=== PATIENT | female | born 1940 | race Caucasian/White ===

== ENCOUNTER 2017-01-04 15:22 | Observation (INO) ==
--- NOTE | 2017-01-04 15:54 | Emergency Department Note ---
Disposition Clinical Impression: CHF (congestive heart failure) Qualifiers: Congestive heart failure type: unspecified congestive heart failure type Congestive heart failure chronicity: acute Qualified Code(s): I50.9 - Heart failure, unspecified Disposition: Admitted As Inpatient Condition: Fair Referrals: Jakob Wilkes MD [Primary Care Provider] - Forms: ED Satisfaction Letter Time of Disposition: 17:26 SOB HPI - General Chief Complaint: ED Shortness of Breath/Dyspnea Stated Complaint: SOB Time Seen by Provider: 01/04/17 15:49 Source: patient, family Mode of arrival: wheelchair Limitations: no limitations Nursing Notes Reviewed: Yes Vital Signs Reviewed: Yes - History of Present Illness 76-year-old with a history of CHF comes in with increasing shortness of breath. Patient was seen at the urgent care with her concern was that she had CHF so they sent her here for evaluation. Pt Subjective Complaint: shortness of breath Onset (ago): Just DIETARY TECH Context: recent illness Severity: moderate Consistency/Duration: constant Improves with: nothing Worsens with: lying flat, exertion Known history of: congestive heart failure Associated symptoms: Reports: chest pain Treatment prior to arrival: oxygen (And is on oxygen at home) Cough present: Yes Cough Description: Involuntary Cough Frequency: Intermittent - Related Data Home Medications Medication Instructions Recorded Confirmed Allopurinol [Zyloprim] 100 mg PO DAILY 03/10/15 03/10/15 Carvedilol [Coreg] 12.5 mg PO BID 03/10/15 03/10/15 Cinacalcet HCl [Sensipar] 30 mg PO DAILY 03/10/15 03/10/15 Coumadin 4 mg PO DAILY 03/10/15 03/17/15 Cyanocobalamin (Vitamin B-12) 1,000 mcg PO DAILY 03/10/15 03/10/15 [Vitamin B-12] Docusate [Colace] 100 mg PO DAILY 03/10/15 03/17/15 Furosemide [Lasix] 40 mg PO DAILY 03/10/15 03/17/15 Gabapentin [Neurontin] 100 mg PO TID 03/10/15 03/10/15 HYDROcodone/Acet 5/325 mg [[place]line 2 tab PO TID PRN 03/10/15 03/10/15 5-325 mg] Levothyroxine Sodium [Synthroid] 125 mcg PO DAILY 03/10/15 03/17/15 Losartan Potassium [Cozaar] 50 mg PO DAILY 03/10/15 03/17/15 Novolog Mix 70-30 Flexpen Syrn 35 - 45 units SQ DAILY 03/10/15 03/17/15 Pravastatin Sodium [Pravachol] 40 mg PO DAILY 03/10/15 03/17/15 Inulin/Chromium Picolinate [Fiber 1 tab PO DAILY 03/17/15 03/17/15 Gummies] Allergies Allergy/AdvReac Type Severity Reaction Status Date / Time azithromycin [From Zithromax] Allergy Hives Verified 01/04/17 15:42 Penicillins Allergy Hives Verified 01/04/17 15:42 All systems ED: reviewed and negative except as stated. Constitutional: Denies: fever, chills, weakness, weight change Eyes: Denies: eye pain, eye discharge, vision change ENT ED: Denies: ear pain, throat pain, dental pain, hearing loss, epistaxis, congestion, dysphagia Cardiovascular: Reports: dyspnea on exertion. Denies: chest pain, palpitations , edema, syncope Respiratory: Reports: dyspnea. Denies: cough, wheezes, hemoptysis, stridor Gastrointestinal: Denies: abdominal pain, nausea, vomiting, diarrhea, constipation, hematemesis, melena, hematochezia Genitourinary: Denies: dysuria, frequency, hematuria, discharge Musculoskeletal: Denies: back pain, neck pain, arthralgia, myalgia Integumentary: Denies: rash, abrasion, lesions Neurological: Denies: headache, weakness, numbness, paresthesias, confusion, abnormal gait, vertigo Psychiatric: Denies: anxiety, depression, suicidal thoughts, homicidal thoughts , auditory hallucinations, visual hallucinations Endocrine: Denies: fatigue Hematological/Lymphatic: Denies: easy bleeding, easy bruising Allergic/Immunologic: Denies: facial swelling, urticaria Past Medical History - Past Medical History Medical history: Reports: atrial fibrillation, COPD, coronary artery disease Surgical history: Reports: non-contributory Psychiatric history: Reports: anxiety, depression PELLET PRESS OPERATOR history: Reports: no PELLET PRESS OPERATOR history - Social History Smoking Status: Never smoker Smokeless Tobacco Status: No Alcohol use: Reports: none Drug use: Reports: none Physical Exam - General Limitations: no limitations General appearance: alert, in no apparent distress - Head Head exam: atraumatic, normocephalic, normal inspection - Eye Eye exam: Present: normal appearance, PERRL, EOMI - ENT ENT exam: normal exam, normal oropharynx, mucous membranes moist - Neck Neck exam: Present: normal inspection, full ROM, trachea midline - Chest Chest inspection: Present: normal inspection, symmetric chest wall rise - Respiratory Respiratory exam: Present: normal lung sounds bilaterally - Cardiovascular Cardiovascular exam: Present: regular rate, normal rhythm, normal heart sounds - Abdominal Exam Abdominal exam: Present: soft, Non-Tender. Absent: tenderness, distention, guarding, rebound, rigidity - Extremities Exam Extremities exam: Present: normal inspection, full ROM. Absent: tenderness, pedal edema - Expanded Lower Extremity Exam Neurovascular/Tendon exam: Absent: motor deficit, sensory deficit, tendon deficit Gait: not tested/not observed - Back Exam Back exam: Present: normal inspection, full ROM. Absent: tenderness - Neurological Exam Neurological exam: Present: alert, oriented X3 - Psychiatric Psychiatric exam: Present: normal affect, normal mood - Skin Skin exam: Present: warm, dry, intact, normal color Course - Reevaluation(s) Reevaluation #1: 76-year-old female with a history of CHF comes in with increasing shortness of breath. Patient states exertional dyspnea has gotten progressively worse. Workup here shows some congestion on chest x-ray or exam does show some rales in the bases. We will admit for further evaluation and treatment. Time: 17:28 - Consultations Consultation #1: Discussed with , admit. Time: 17:32 Vital Signs Temperature 98.8 F 01/04/17 15:42 Pulse Rate 86 01/04/17 15:42 Respiratory Rate 22 01/04/17 15:42 Blood Pressure 167/86 01/04/17 15:42 O2 Sat by Pulse Oximetry 89 01/04/17 15:42 Temperature 98.8 F 01/04/17 15:42 Pulse Rate 80 01/04/17 16:47 Respiratory Rate 18 01/04/17 16:47 Blood Pressure 146/106 01/04/17 16:47 O2 Sat by Pulse Oximetry 94 01/04/17 16:47 Oxygen Delivery Oxygen Delivery Nasal Cannula Shortness of Breath/Dyspnea - Lab Data Result diagrams: 01/04/17 16:02 01/04/17 16:02 Lab Results 01/04/17 01/04/17 01/04/17 Range/Units 16:02 16:02 16:02 WBC 5.6 (4.3-11.1) K/mcL RBC 3.63 L (3.82-4.97) M/mcL Hgb 10.7 L (11.5-15.4) g/dL Hct 33.0 L (35.3-44.9) % MCV 90.9 (83.0-100.0) fL MCH 29.5 (28.0-33.3) pg MCHC 32.4 (31.6-35.5) g/dL RDW 15.1 H (11.5-14.5) % Plt Count 113 L (140-400) K/mcL MPV 8.8 L (9.4-12.4) fL Immature Gran % 0.7 (0-4) % Seg Neutrophils % 70.8 % Lymphocytes % 19.9 % Monocytes % 6.6 % Eosinophils % 1.6 % Basophils % 0.4 % Neutrophils # 3.9 (1.6-8.9) K/mcL Lymphocytes # 1.1 (0.6-4.6) K/mcL Monocytes # 0.4 (0.0-1.3) K/mcL Eosinophils # 0.1 (0.0-0.6) K/mcL Basophils # 0.0 (0.0-0.2) K/mcL Immature Plt Fraction 1.5 (1.1-6.1) % PT 21.0 H (9.4-12.1) Seconds INR 1.9 APTT 38.0 H (26.0-36.0) Seconds Sodium 141 (136-145) mEq/L Potassium 4.1 (3.5-4.5) mEq/L Chloride 101 (98-109) mEq/L Carbon Dioxide 29 (19-29) mEq/L BUN 16 (7-20) mg/dL Creatinine 0.99 (0.57-1.11) mg/dL Est GFR ( Amer) > 60 (> 60) Est GFR (Non-Af Amer) 55 L (> 60) BUN/Creatinine Ratio 16 (6-26) Glucose 230 H (70-99) mg/dL Calculated Osmolality 300 (280-300) Lactic Acid (0.5-2.2) mmol/L Calcium 10.2 (8.6-10.8) mg/dL Troponin I (0-0.03) ng/mL B-Natriuretic Peptide (0-100) pg/mL 01/04/17 01/04/17 01/04/17 Range/Units 16:02 16:02 16:02 WBC (4.3-11.1) K/mcL RBC (3.82-4.97) M/mcL Hgb (11.5-15.4) g/dL Hct (35.3-44.9) % MCV (83.0-100.0) fL MCH (28.0-33.3) pg MCHC (31.6-35.5) g/dL RDW (11.5-14.5) % Plt Count (140-400) K/mcL MPV (9.4-12.4) fL Immature Gran % (0-4) % Seg Neutrophils % % Lymphocytes % % Monocytes % % Eosinophils % % Basophils % % Neutrophils # (1.6-8.9) K/mcL Lymphocytes # (0.6-4.6) K/mcL Monocytes # (0.0-1.3) K/mcL Eosinophils # (0.0-0.6) K/mcL Basophils # (0.0-0.2) K/mcL Immature Plt Fraction (1.1-6.1) % PT (9.4-12.1) Seconds INR APTT (26.0-36.0) Seconds Sodium (136-145) mEq/L Potassium (3.5-4.5) mEq/L Chloride (98-109) mEq/L Carbon Dioxide (19-29) mEq/L BUN (7-20) mg/dL Creatinine (0.57-1.11) mg/dL Est GFR ( Amer) (> 60) Est GFR (Non-Af Amer) (> 60) BUN/Creatinine Ratio (6-26) Glucose (70-99) mg/dL Calculated Osmolality (280-300) Lactic Acid 1.7 (0.5-2.2) mmol/L Calcium (8.6-10.8) mg/dL Troponin I 0.01 (0-0.03) ng/mL B-Natriuretic Peptide 207 H (0-100) pg/mL - Radiology Data Radiology results reviewed: Yes I reviewed the patient's radiology results. Chest X-Ray 01/04/17 15:50 IMPRESSION: Stable cardiomegaly with vascular congestion and suspected mild interstitial edema. No significant change compared to earlier today D/ / 01/04/2017 16:47:38 Filippo Wise MD / claire Interpreting Provider: Filippo Wise MD
[2017-01-04 16:15] LABS: Basophils % 0.4 %; Eosinophils # 0.1 K/mcL (0.0-0.6); Eosinophils % 1.6 %; Hemoglobin 10.7 g/dL (11.5-15.4); Immature Granulocytes % 0.7 % (0-4); Immature Platelets 1.5 % (1.1-6.1); Lymphocytes # 1.1 K/mcL (0.6-4.6); Lymphocytes % 19.9 %; Mean Corpuscular HGB Conc 32.4 g/dL (31.6-35.5); Mean Corpuscular Hemoglobin 29.5 pg (28.0-33.3); Mean Corpuscular Volume 90.9 fL (83.0-100.0); Mean Platelet Volume 8.8 fL (9.4-12.4); Monocytes # 0.4 K/mcL (0.0-1.3); Monocytes % 6.6 %; Neutrophils # 3.9 K/mcL (1.6-8.9); Platelet Count 113 K/mcL (140-400); Red Blood Count 3.63 M/mcL (3.82-4.97); Red Cell Distribution Width 15.1 % (11.5-14.5); Segmented Neutrophils % 70.8 %
[2017-01-04 16:18] LABS: INR 1.9
[2017-01-04 16:22] LABS: BUN/Creatinine Ratio 16 (6-26); Blood Urea Nitrogen 16 mg/dL (7-20); Calcium 10.2 mg/dL (8.6-10.8); Carbon Dioxide 29 mEq/L (19-29); Chloride 101 mEq/L (98-109); Glucose 230 mg/dL (70-99); Osmolality,Calculated 300 (280-300); Potassium 4.1 mEq/L (3.5-4.5); Sodium 141 mEq/L (136-145); eGFR For African Americans > 60 (> 60); eGFR For Non-African Americans 55 (> 60)
[2017-01-04] MEDS ORDERED: Furosemide 40 MG/4 ML VIAL IVP ONE (17:24)
[2017-01-04] MEDS ORDERED: Naloxone 0.4 MG/ML INJ IVP PRN (20:18)
[2017-01-04] MEDS ORDERED: NON-FORMULARY MEDICATION 1 EACH EACH (Oxygen [Oxygen] 2 L) NS SCH (20:30)
--- NOTE | 2017-01-04 20:47 | Internal Med History&Physical ---
Date of Encounter: 01/04/17 Time of Encounter: 20:45 Assessment and Plan (1) Acute exacerbation of CHF (congestive heart failure) Current visit: Yes Status: Acute prior echocardiogram from 03/2015 showed LVEF: 55-60%. We will treat him with intravenous Lasix, low sodium diet and fluid restriction to 1.5 L per day. Obtain Echocardiogram. Monitor intake / output and daily weights. Qualifiers: Congestive heart failure type: diastolic Qualified Code(s): I50.33 - Acute on chronic diastolic (congestive) heart failure (2) Atrial fibrillation Current visit: Yes Status: Chronic Continue warfarin - dosing per pharmacy. Continue carvedilol. Qualifiers: Atrial fibrillation type: chronic Qualified Code(s): I48.2 - Chronic atrial fibrillation (3) Diabetes mellitus Current visit: Yes Status: Chronic Start sliding scale insulin Qualifiers: Diabetes mellitus type: type 2 Diabetes mellitus complication status: with neurologic complications Diabetes mellitus complication detail: with unspecified neuropathy Diabetes mellitus termination clerk insulin use: with retirement use Qualified Code(s): E11.40 - Type 2 diabetes mellitus with diabetic neuropathy, unspecified; Z79.4 - keno terminal operator (current) use of insulin (4) Chronic anemia Current visit: Yes Status: Chronic Monitor Hemoglobin and hematocrit (5) Thrombocytopenia Current visit: Yes Status: Chronic Chronic - possibly related to Cirrhosis of liver. Monitor platelet count (6) MONIK (obstructive sleep apnea) Current visit: Yes Status: Chronic Patient is not using CPAP at home. Counseled her about the importance of using CPAP. Advised to f/u with PCP / managing manager re: titrating the mask / nasal pillow (7) Hypothyroidism Current visit: Yes Status: Chronic Continue Synthroid. Check TSH level. Qualifiers: Hypothyroidism type: unspecified Qualified Code(s): E03.9 - Hypothyroidism , unspecified (8) Hypertension Current visit: Yes Status: Chronic Continue home medications. Monitor blood pressure. 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 Low sodium diet and fluid restriction. Qualifiers: Hepatic cirrhosis type: other cirrhosis Qualified Code(s): K74.69 - Other cirrhosis of liver (10) Coagulopathy Current visit: Yes Status: Chronic secondary to warfarin use. Monitor INR. Warfarin dosing per pharmacy Internal Medicine - H&P: HPI Chief complaint: Shortness of breath Admitted From: Emergency Dept Plans for Post Hospital Care: Home History of present illness: Ms. aBird is a 76 year old female With Past medical history significant for CHF ( LVEF: 55-60%), chronic atrial fibrillation on anticoagulation with warfarin, HTN, hypothyroidism, MONIK not using CPAP, chronic respiratory failure on home oxygen, Pulmonary arterial hypertension, DM on insulin, Diabetic Pancytopenia / chronic anemia, gout, chronic back pain, radiculopathy. She presents to the emergency department for progressively worsening shortness of breath. She felt very short of breath last night and had to sit up in the chair. She chronically uses 2 pillows. She denies cough, expectoration, chest pain, palpitations, fever, chills, nausea, vomiting, abdominal pain, dysuria, hematuria, melena, or bowel problems. She reports history of leg swelling. She was evaluated in the emergency department and was thought to have exhibition of CHF and was given IV Lasix, with improvement of symptoms. She is admitted to the hospitalist service for further workup and management. Past Med Surg Social Fam HX - Past Medical History Medical history: atrial fibrillation, CHF, COPD, coronary artery disease, diabetes, hyperlipidemia, hypertension, osteoporosis Psychiatric history: anxiety, depression - Past Surgical History Surgical History: cholecystectomy, hysterectomy - Social History Smoking Status: Never smoker Smokeless Tobacco Status: No Alcohol use: none Drug use: none - Additional Family History Additional family history: Family history reviewed and is noncontributory to current admission Internal Medicine - H&P: Meds Allopurinol [Zyloprim] 100 mg PO DAILY 03/10/15 [History] Carvedilol [Coreg] 12.5 mg PO BID 03/10/15 [History] Cinacalcet HCl [Sensipar] 30 mg PO DAILY 03/10/15 [History] Cyanocobalamin (Vitamin B-12) [Vitamin B-12] 2,000 mcg PO DAILY 03/10/15 [ History] Docusate [Colace] 100 mg PO TID PRN 03/10/15 [History] Furosemide [Lasix] 40 - 80 mg PO DAILY 03/10/15 [History] Gabapentin [Neurontin] 100 mg PO TID 03/10/15 [History] HYDROcodone/Acet 5/325 mg [[place] 5-325 mg] 2 tab PO TID PRN 03/10/15 [History] Insulin NPH Hum/Reg Insulin Hm [Novolin 70-30 100 Unit/ml Vial] 10 - 20 unit SQ BID 03/10/15 [History] Levothyroxine Sodium [Synthroid] 125 mcg PO QAM 03/10/15 [History] Losartan Potassium [Cozaar] 50 mg PO DAILY 03/10/15 [History] Pravastatin Sodium [Pravachol] 40 mg PO HS 03/10/15 [History] Warfarin [Coumadin] 2 mg PO Q72H 03/10/15 [History] Inulin/Chromium Picolinate [Fiber Gummies] 1 tab PO DAILY 03/17/15 [History] Ferrous Sulfate 325 mg PO DAILY 01/04/17 [History] Metoclopramide HCl 5 mg PO DAILY PRN 01/04/17 [History] Oxygen 2 l NS CONT 01/04/17 [History] Allergies azithromycin [From Zithromax] Allergy (Verified 01/04/17 15:42) Hives Penicillins Allergy (Verified 01/04/17 15:42) Hives All Systems PM: A 10-system review of systems was performed and is negative for pertinent findings except as documented above in the HPI. - Constitutional Vitals: Temp Pulse Resp BP Pulse Ox 98.5 F 88 15 151/81 93 01/04/17 19:03 01/04/17 19:03 01/04/17 19:03 01/04/17 19:03 01/04/17 19:56 Exam: General: Not in acute distress at the time of my evaluation HEENT: Oral mucosa is moist. No conjunctival palor or scleral icterus. Oxygen through nasal cannula Neck: No obvious neck swellings Lungs: Occasional basal crackles present Cardiac: Regular rate and rhythm. No significant murmurs Abdomen: Soft, non tender. Bowel sounds present Genitourinary: No blanco catheter Neurological: Alert and oriented. No gross localizing deficits Psych: Not aggressive or agitated Extremities: Mild leg edema Skin: No generalized rash Internal Med - H&P Results - Labs CBC & Chem 7: 01/04/17 16:02 01/04/17 16:02 - EKG Data -: EKG Interpreted by Myself - EKG Data Prior EKG available for review: yes When compared to previous EKG: there are significant changes EKG comments: Shows atrial fibrillation with HR 96 01/04/17 20:48 - Impressions ITS Impressions Chest X-Ray 01/04/17 15:50 IMPRESSION: Stable cardiomegaly with vascular congestion and suspected mild interstitial edema. No significant change compared to earlier today D/ / 01/04/2017 16:47:38 Filippo Wise MD / [facility] Interpreting Provider: Filippo Wise MD - VTE Reasons for not Prescribing Prophylaxis: Not indicated-Anticoagulated or INR therapeutic
[2017-01-04] MEDS ORDERED: D5% in Water 1,000 ML IVC PRN (20:52)
[2017-01-04] MEDS ORDERED: Dextrose Gel 15 GM PO PRN ×2 (20:52)
[2017-01-04] MEDS ORDERED: *HR* Dextrose 50 % in Water (Syg) 50 ML SYRINGE IVP PRN (20:52)
[2017-01-04] MEDS: Gabapentin 100 MG CAPSULE PO SCH (21:31)
[2017-01-04] MEDS: Insulin LISPRO 300 UNITS/3 ML VIAL SQ SCH (21:33)
[2017-01-04] MEDS: *HR* HYDROcodone/Acet 5/325 mg TABLET PO PRN (21:37)
[2017-01-04] MEDS ORDERED: *HR* Warfarin 2 MG TABLET PO ONE (22:30)
[2017-01-05 05:48] LABS: Hematocrit 29.8 % (35.3-44.9); Hemoglobin 9.4 g/dL (11.5-15.4); Immature Platelets 1.9 % (1.1-6.1); Mean Corpuscular HGB Conc 31.5 g/dL (31.6-35.5); Mean Corpuscular Hemoglobin 28.7 pg (28.0-33.3); Mean Corpuscular Volume 91.1 fL (83.0-100.0); Mean Platelet Volume 9.5 fL (9.4-12.4); Red Blood Count 3.27 M/mcL (3.82-4.97); Red Cell Distribution Width 15.3 % (11.5-14.5)
[2017-01-05 06:04] LABS: Alanine Aminotransferase 13 Units/L (0-55); Albumin 3.6 g/dL (3.5-5.0); Albumin/Globulin Ratio 1.2 (1.1-2.2); Alkaline Phosphatase 67 Units/L (38-126); Aspartate Amino Transferase 18 Units/L (5-34); BUN/Creatinine Ratio 18 (6-26); Bilirubin,Total 1.3 mg/dL (0.2-1.2); Blood Urea Nitrogen 19 mg/dL (7-20); Calcium 9.8 mg/dL (8.6-10.8); Carbon Dioxide 32 mEq/L (19-29); Chloride 103 mEq/L (98-109); Globulin 2.9 g/dL (2.4-3.5); Glucose 220 mg/dL (70-99); Magnesium 1.2 mg/dL (1.6-2.6); Osmolality,Calculated 307 (280-300); Potassium 3.4 mEq/L (3.5-4.5); Sodium 144 mEq/L (136-145); Total Protein 6.5 g/dL (6.0-8.3); eGFR For African Americans > 60 (> 60); eGFR For Non-African Americans 50 (> 60)
[2017-01-05 06:25] LABS: Thyroid Stimulating Hormone 0.442 mcIU/mL (0.350-4.840)
[2017-01-05] MEDS ORDERED: Perflutren Lipid Microsphere 1.3 ML in 0.9 % Sodium Chloride 8.7 ML IVP ONE (06:55)
[2017-01-05] MEDS: Furosemide 40 MG/4 ML VIAL IVP SCH (09:16)
[2017-01-05] MEDS: Insulin LISPRO 300 UNITS/3 ML VIAL SQ SCH ×4 (09:18→21:12)
[2017-01-05] MEDS: Cyanocobalamin (B-12) 1,000 MCG TABLET PO SCH (09:20)
[2017-01-05] MEDS: Gabapentin 100 MG CAPSULE PO SCH ×3 (09:20→21:05)
[2017-01-05] MEDS: CHROMIUM PICOLINATE PO SCH (09:21)
[2017-01-05] MEDS: INULIN PO SCH (09:21)
[2017-01-05] MEDS: *HR* HYDROcodone/Acet 5/325 mg TABLET PO PRN ×2 (09:22→21:07)
--- NOTE | 2017-01-05 11:32 | Internal Med Progress Note ---
Date of Encounter: 01/05/17 Time of Encounter: 11:31 - Assessment and plan (1) Acute exacerbation of CHF (congestive heart failure) Current Visit: Yes Status: Acute Assessment and plan: Continue IV lasix 1500cc fluid restriction Strict intake/output daily weights Follow ECHO Qualifiers: Congestive heart failure type: diastolic Qualified Code(s): I50.33 - Acute on chronic diastolic (congestive) heart failure (2) Atrial fibrillation Current Visit: Yes Status: Chronic Assessment and plan: HR controlled Continue current meds INR therapeutic Qualifiers: Atrial fibrillation type: chronic Qualified Code(s): I48.2 - Chronic atrial fibrillation (3) Diabetes mellitus Current Visit: Yes Status: Chronic Assessment and plan: Continue current insulin regimen Monitor FS ACHS ADA diet Qualifiers: Diabetes mellitus type: type 2 Diabetes mellitus complication status: with neurologic complications Diabetes mellitus complication detail: with unspecified neuropathy Diabetes mellitus terminal operator insulin use: with terminal operator use Qualified Code(s): E11.40 - Type 2 diabetes mellitus with diabetic neuropathy, unspecified; Z79.4 - snf (current) use of insulin (4) Chronic anemia Current Visit: Yes Status: Chronic Assessment and plan: Hb stable, continue to monitor (5) MONIK (obstructive sleep apnea) Current Visit: Yes Status: Chronic Assessment and plan: CPAP at night (6) Hypothyroidism Current Visit: Yes Status: Chronic Assessment and plan: Continue Synthroid Qualifiers: Hypothyroidism type: unspecified Qualified Code(s): E03.9 - Hypothyroidism , unspecified (7) Hypertension Current Visit: Yes Status: Chronic Assessment and plan: Continue meds Qualifiers: Hypertension type: essential hypertension Qualified Code(s): I10 - Essential (primary) hypertension (8) Morbid obesity with BMI of 45.0-49.9, adult Current Visit: Yes Status: Chronic Assessment and plan: Lifestyle changes encouraged - Subjective Interval history: Seen and evaluated at bedside Reports clinical improvemnt being managed for CHF-possibly mild and due to dietary indiscretion I/O -350cc approximately No extra O2 requirements NO pedal edema Will observe for 24 hrs, and possibly discharge tomorrow Follow repeat ECHO Ensure CPAP at night for MONIK Replace K - Constitutional Vitals: Temp Pulse Resp BP Pulse Ox 98.0 F 67 18 128/72 97 01/05/17 08:57 01/05/17 08:57 01/05/17 08:57 01/05/17 08:57 01/05/17 08:57 General appearance: Present: A&O X 3, morbidly obese, pleasant, no acute distress - Head Head exam: Present: atraumatic, normocephalic - Eye Eye exam: Present: PERRL, conjuntiva pink, sclera anicteric Pupils: Present: PERRL - Neck Neck exam general surgery: Present: supple, trachea midline. Absent: lymphadenopathy - Respiratory Respiratory exam: Present: CTAB. Absent: accessory muscle use, rales, rhonchi, wheezes - Cardiovascular Cardiovascular exam: Present: RRR, +S1, +S2. Absent: diastolic murmur, gallop, rubs, systolic murmur - GI/Abdominal GI/Abdominal exam: Present: normal bowel sounds, soft, no peritoneal signs. Absent: distended, tenderness - Extremities Exam Extremities exam: Present: warm, radial pulses palpable and symetrical. Absent : calf tenderness, cyanotic, pedal edema - Neurological Exam Neurological exam: Present: alert, CN II-XII intact, oriented X3, no focal deficits. Absent: pronater drift, facial droop, speech deficit - Skin Skin exam: Present: dry, intact Internal Medicine: Result - Labs CBC & Chem 7: 01/05/17 05:26 01/05/17 05:26 Labs: Short CBC 01/05/17 Range/Units 05:26 WBC 5.2 (4.3-11.1) K/mcL Hgb 9.4 L (11.5-15.4) g/dL Hct 29.8 L (35.3-44.9) % Plt Count 103 L (140-400) K/mcL BMP 01/05/17 05:26 Sodium 144 Potassium 3.4 L Chloride 103 Carbon Dioxide 32 H BUN 19 Creatinine 1.07 Glucose 220 H Calcium 9.8 Liver Function 01/05/17 Range/Units 05:26 Total Bilirubin 1.3 H (0.2-1.2) mg/dL AST 18 (5-34) Units/L ALT 13 (0-55) Units/L Alkaline Phosphatase 67 (38-126) Units/L Albumin 3.6 (3.5-5.0) g/dL - ABG Interpretation ABG results: PT/INR, D-dimer PT 22.0 Seconds (9.4-12.1) H 01/05/17 05:26 - VTE Reasons for not Prescribing Prophylaxis: Not indicated-Anticoagulated or INR therapeutic Consult Discharge Plan - Plan Referrals: Jakob Wilkes MD [Primary Care Provider] -
--- NOTE | 2017-01-05 13:00 | Electrocardiograph Report ---
[address] [place], [place] [address] Test Date: 2017-01-04 Pat Name: Yana Baird Department: 105 Room: 3B Gender: F [employer] Installer: KEARA : 1940 Requested By: Harmeet Phan Order Number: [id number] Reading MD: Jamal Calvo MD Measurements Intervals Burr Rate: 96 P: MD: 0 QRS: 11 QRSD: 93 T: 17 QT: 363 QTc: 417 Interpretive Statements ATRIAL FIBRILLATION INCOMPLETE RIGHT BUNDLE BRANCH BLOCK MINIMAL ST DEPRESSION Electronically Signed On 01-05-2017 12:58:58 EDT by Jamal Calvo MD
[2017-01-05] MEDS ORDERED: Furosemide 20 MG/2 ML VIAL IVP SCH (16:00)
[2017-01-05] MEDS ORDERED: *HR* Warfarin 2 MG TABLET PO SCH (18:00)
[2017-01-05] MEDS ORDERED: Warfarin perPT PO PRN (18:00)
[2017-01-05] MEDS ORDERED: *HR* Warfarin 4 MG TABLET PO SCH (18:00)
[2017-01-06 05:01] LABS: Mean Corpuscular Hemoglobin 29.9 pg (28.0-33.3); Red Cell Distribution Width 15.2 % (11.5-14.5)
[2017-01-06 05:02] LABS: Basophils % 0.4 %; Eosinophils # 0.1 K/mcL (0.0-0.6); Eosinophils % 2.2 %; Hemoglobin 9.4 g/dL (11.5-15.4); Immature Granulocytes % 0.6 % (0-4); Immature Platelets 2.8 % (1.1-6.1); Lymphocytes # 1.6 K/mcL (0.6-4.6); Mean Corpuscular HGB Conc 32.4 g/dL (31.6-35.5); Mean Corpuscular Volume 92.4 fL (83.0-100.0); Mean Platelet Volume 10.6 fL (9.4-12.4); Monocytes # 0.4 K/mcL (0.0-1.3); Neutrophils # 3.2 K/mcL (1.6-8.9); Red Blood Count 3.14 M/mcL (3.82-4.97); Segmented Neutrophils % 59.8 %
[2017-01-06 05:05] LABS: Platelet Count 99 K/mcL (140-400)
[2017-01-06 05:18] LABS: Calcium 9.5 mg/dL (8.6-10.8); Potassium 3.8 mEq/L (3.5-4.5)
[2017-01-06 08:52] LABS: INR 2.1; Prothrombin Time 22.7 Seconds (9.4-12.1)
[2017-01-06] MEDS: Cyanocobalamin (B-12) 1,000 MCG TABLET PO SCH (09:06)
[2017-01-06] MEDS: CHROMIUM PICOLINATE PO SCH (09:07)
[2017-01-06] MEDS: INULIN PO SCH (09:07)
[2017-01-06] MEDS: Gabapentin 100 MG CAPSULE PO SCH (09:07)
[2017-01-06] MEDS: Furosemide 40 MG/4 ML VIAL IVP SCH (09:07)
[2017-01-06] MEDS: Insulin LISPRO 300 UNITS/3 ML VIAL SQ SCH ×2 (09:08→12:29)
[2017-01-06] MEDS: *HR* HYDROcodone/Acet 5/325 mg TABLET PO PRN (09:11)
[2017-01-06 11:44] VITALS: BP 97/59
--- NOTE | 2017-01-06 12:01 | Discharge Summary ---
Date of Encounter: 01/06/17 Time of Encounter: 12:01 - Discharge Diagnosis (1) Acute exacerbation of CHF (congestive heart failure) Priority: Primary Status: Acute Qualifiers: Congestive heart failure type: diastolic Qualified Code(s): I50.33 - Acute on chronic diastolic (congestive) heart failure (2) Atrial fibrillation Priority: Secondary Status: Chronic Qualifiers: Atrial fibrillation type: chronic Qualified Code(s): I48.2 - Chronic atrial fibrillation (3) Diabetes mellitus Priority: Secondary Status: Chronic Qualifiers: Diabetes mellitus type: type 2 Diabetes mellitus complication status: with neurologic complications Diabetes mellitus complication detail: with unspecified neuropathy Diabetes mellitus adjunct faculty for medical terminology insulin use: with adjunct faculty for medical terminology use Qualified Code(s): E11.40 - Type 2 diabetes mellitus with diabetic neuropathy, unspecified; Z79.4 - senior living (current) use of insulin (4) Chronic anemia Priority: Secondary Status: Chronic (5) MONIK (obstructive sleep apnea) Priority: Secondary Status: Chronic (6) Hypothyroidism Priority: Secondary Status: Chronic Qualifiers: Hypothyroidism type: unspecified Qualified Code(s): E03.9 - Hypothyroidism , unspecified (7) Hypertension Priority: Secondary Status: Chronic Qualifiers: Hypertension type: essential hypertension Qualified Code(s): I10 - Essential (primary) hypertension (8) Morbid obesity with BMI of 45.0-49.9, adult Priority: Secondary Status: Chronic (9) CKD (chronic kidney disease) stage 3, GFR 30-59 ml/min Priority: Secondary Status: Chronic - Discharge Medications Prescriptions: Furosemide [Lasix] 40 mg PO DAILY #45 tablet Home Medications: Allopurinol [Zyloprim] 100 mg PO DAILY 03/10/15 [History] Carvedilol [Coreg] 12.5 mg PO BID 03/10/15 [History] Cinacalcet HCl [Sensipar] 30 mg PO DAILY 03/10/15 [History] Cyanocobalamin (Vitamin B-12) [Vitamin B12] 2,000 mcg PO DAILY 03/10/15 [History ] Docusate [Colace] 100 mg PO TID PRN 03/10/15 [History] Gabapentin [Neurontin] 100 mg PO TID 03/10/15 [History] HYDROcodone/Acet 5/325 mg [Dodson 5-325 mg] 2 tab PO TID PRN 03/10/15 [History] Insulin NPH Hum/Reg Insulin Hm [Novolin 70-30 100 Unit/ml Vial] 10 - 20 unit SQ BID 03/10/15 [History] Levothyroxine Sodium [Synthroid] 125 mcg PO QAM 03/10/15 [History] Losartan Potassium [Cozaar] 50 mg PO DAILY 03/10/15 [History] Pravastatin Sodium [Pravachol] 40 mg PO HS 03/10/15 [History] Warfarin [Coumadin] 2 mg PO Q72H 03/10/15 [History] Inulin/Chromium Picolinate [Fiber Gummies] 1 tab PO DAILY 03/17/15 [History] Ferrous Sulfate 325 mg PO DAILY 01/04/17 [History] Metoclopramide HCl 5 mg PO DAILY PRN 01/04/17 [History] Oxygen 2 l NS CONT 01/04/17 [History] Furosemide [Lasix] 40 mg PO DAILY #45 tablet 01/06/17 [Rx] Allergies/Adverse Reactions: Allergies azithromycin [From Zithromax] Allergy (Verified 01/04/17 15:42) Hives Penicillins Allergy (Verified 01/04/17 15:42) Hives Procedures/tests Complete & Pending: Procedures Performed prior 72 hours Category Date Time Status EV echocardiogram w enhance Routine Y 01/05/17 20:21 Completed Date of admission: 01/04/17 18:25 Primary care physician: Jakob Wilkes MD Consults: 01/04/17 19:48 Consult to Parks Recreation Director [CONS] Routine Reason for SW Consult: discharge planning Discharging clinician: Lv Espino Anticipated date of discharge: 01/06/17 - Patient Status Disposition: Home, Self-Care Condition: Fair Functional capacity at discharge: independent ambulation Overall status at discharge: patient is progressing back to baseline - Discharge Instructions Instructions: Heart Failure (DC), Atrial Fibrillation (DC), Diabetes Mellitus Type 2 in Adults (DC) Follow Up With: Ely Anand [employer] MANAGER [Advanced Practice Nurse] - 01/11/17 10:00 am - Diet and Activity Activity: resume usual activities as tolerated Diet: diabetic diet, low fat, low cholesterol, low salt diet Interval History: See below Hospital course: Ms. Baird is a 76 year old female with past medical history of CHF with preserved ejection fraction, hypothyroidism, chronic kidney disease stage III, diabetes mellitus, coronary artery disease. She was admitted and managed for acute on chronic CHF exacerbation, mild. Patient's chest x-ray showed mild pulmonary edema, BNP slightly elevated at greater than 200. Her creatinine, and GFR remained within her baseline. She was managed with intravenous furosemide She is not evaluated at the bedside now today and has made significant clinical improvement Patient is is euvolemic on admission, she has no pedal edema she has no JVD she has no increasing oxygen requirement she is on home oxygen at home for chronic respiratory failure from COPD. Patient is clinically stable to be discharged, recommend follow-up with PCP. Patient reports having cardiology and nephrology appointment within the next month. Encouraged to follow. Patient educated on dietary and fluid restriction, and to take an extra dose of Lasix if she gains 2 pounds. Discussed, verbalizes understanding. - Time Spent with Patient Total time spent providing and/or coordinating discharge services: Less than 30 minutes - Constitutional Vitals: Temp Pulse Resp BP Pulse Ox 98 F 67 12 97/59 96 01/06/17 11:41 01/06/17 11:41 01/06/17 11:41 01/06/17 11:41 01/06/17 11:41 General appearance: Present: A&O X 3, morbidly obese, pleasant, no acute distress - Head Head exam: Present: atraumatic, normocephalic - Eye Eye exam: Present: PERRL, conjuntiva pink, sclera anicteric Pupils: Present: PERRL - Neck Neck exam general surgery: Present: supple, trachea midline. Absent: lymphadenopathy - Respiratory Respiratory exam: Present: CTAB. Absent: accessory muscle use, rales, rhonchi, wheezes - Cardiovascular Cardiovascular exam: Present: RRR, +S1, +S2. Absent: diastolic murmur, gallop, rubs, systolic murmur - GI/Abdominal GI/Abdominal exam: Present: normal bowel sounds, soft, no peritoneal signs. Absent: distended, tenderness - Extremities Exam Extremities exam: Present: warm, radial pulses palpable and symetrical. Absent : calf tenderness, cyanotic, pedal edema - Neurological Exam Neurological exam: Present: alert, CN II-XII intact, oriented X3, no focal deficits. Absent: pronater drift, facial droop, speech deficit - Skin Skin exam: Present: dry, intact - VTE Reasons for not Prescribing Prophylaxis: Not indicated-Anticoagulated or INR therapeutic
[2017-01-06] MEDS ORDERED: Aminoglycoside Consult 1 EACH MC ONE (14:34)
[2017-01-06] MEDS ORDERED: *HR* Warfarin 4 MG TABLET PO SCH (18:00)
[2017-01-07] MEDS ORDERED: *HR* Warfarin 2 MG TABLET PO SCH (18:00)
== END 2017-01-06 14:35 | disposition home or self-care (01) ==
LOC: EMEROO 15:22 → 3BNU 15:22 → SUATTDRO 18:25 → 3BNU 18:45
PROVIDERS: ADMIT Internal Medicine Endocrinology, Diabetes & Metabolism; ATTEND Internal Medicine

== ENCOUNTER 2018-01-25 08:29 | Observation (INO) ==
[2018-01-25] MEDS ORDERED: Furosemide 40 MG/4 ML VIAL IVP ONE (08:37)
--- NOTE | 2018-01-25 08:48 | Emergency Department Note ---
Disposition Clinical Impression: Acute exacerbation of CHF (congestive heart failure) Qualifiers: Heart failure type: diastolic Qualified Code(s): I50.33 - Acute on chronic diastolic (congestive) heart failure Disposition: Admitted As Inpatient Condition: Fair SOB HPI - General Stated Complaint: shortness of breath Time Seen by Provider: 01/25/18 08:35 Source: patient, EMS Mode of arrival: EMS Limitations: no limitations Nursing Notes Reviewed: Yes Vital Signs Reviewed: Yes - History of Present Illness Patient presents from home via EMS for evaluation of shortness of breath and a feeling of "filling up with fluid." She states that she has had this happen to her several times in the past and once, about a year ago, it required admission. She does take Lasix at home, but states that this has not helped and she has even tried increasing her dose. She has had swelling in her legs, but states that its really not much worse than usual. She denies cough, fever, chills, nausea or vomiting. She is not sure when her last echocardiogram was. Pt Subjective Complaint: shortness of breath Onset (ago): day(s) Context: other (Patient states, "I think I am filling up with fluid again" ) Severity: moderate Consistency/Duration: constant Improves with: nothing Worsens with: exertion Known history of: congestive heart failure, other (Atrial fibrillation) Associated symptoms: Reports: abdominal pain (Right upper quadrant). Denies: chest pain, pain with inspiration, fever, cough, wheezing, sputum production, orthopnea, lower extremity pain, polyuria, polydipsia, parasthesias, palpitations, hemoptysis, diaphoresis, nausea/vomiting, syncope, rash, sense of impending doom Treatment prior to arrival: diuretics Cough present: No Sputum production: No - Related Data Home oxygen amount: none Home Medications Medication Instructions Recorded Confirmed Cyanocobalamin (Vitamin B-12) 2,000 mcg PO DAILY 03/10/15 01/04/17 [Vitamin B12] Insulin NPH Hum/Reg Insulin Hm 10 - 20 unit SQ BID 03/10/15 01/04/17 [Novolin 70-30 100 Unit/ml Vial] Losartan Potassium [Cozaar] 50 mg PO DAILY 03/10/15 01/04/17 Pravastatin Sodium [Pravachol] 40 mg PO HS 03/10/15 01/04/17 Warfarin [Coumadin] 2 mg PO Q72H 03/10/15 01/04/17 Ferrous Sulfate 325 mg PO DAILY 01/04/17 01/04/17 Oxygen 2 l NS CONT 01/04/17 01/04/17 Allopurinol [Zyloprim 100 MG] 100 mg PO DAILY 01/25/18 01/25/18 Carvedilol [Carvedilol] 12.5 mg PO BID 01/25/18 01/25/18 Cinacalcet [Sensipar] 30 mg PO DAILY 01/25/18 01/25/18 Docusate [Colace] 100 mg PO TID PRN 01/25/18 01/25/18 Furosemide [Lasix] 40 - 80 mg PO DAILY PRN 01/25/18 01/25/18 Gabapentin [Neurontin] 100 mg PO TID 01/25/18 01/25/18 Levothyroxine [Synthroid] 125 mcg PO 0630 01/25/18 01/25/18 Allergies Allergy/AdvReac Type Severity Reaction Status Date / Time azithromycin [From Zithromax] Allergy Hives Verified 01/25/18 08:44 doxycycline Allergy Hives Verified 01/25/18 08:44 nitrofurantoin Allergy Hives Verified 01/25/18 08:44 [From Macrobid] Penicillins Allergy Hives Verified 01/25/18 08:44 simvastatin AdvReac Muscle Pain Verified 01/25/18 08:44 All systems ED: reviewed and negative except as stated. Review of Systems: As Per HPI Constitutional: Reports: weight change (Increased from 232-248 since last week) . Denies: fever, chills, weakness Eyes: Denies: vision change Cardiovascular: Reports: as per HPI, dyspnea on exertion, edema. Denies: chest pain, palpitations, orthopnea, syncope Respiratory: Reports: as per HPI, dyspnea. Denies: cough, wheezes, hemoptysis, stridor, sputum production Gastrointestinal: Reports: as per HPI, abdominal pain, constipation (Patient states that she had a small bowel movement on Tuesday but has not had one since then. She took a laxative last week with little improvement. Decreased oral intake lately). Denies: nausea, vomiting, diarrhea Genitourinary: Denies: urgency, dysuria, frequency, hematuria Musculoskeletal: Denies: back pain, neck pain, joint swelling Neurological: Denies: headache, weakness Endocrine: Reports: fatigue Hematological/Lymphatic: Denies: easy bleeding, easy bruising Past Medical History - Past Medical History Attestation: Yes The following information was validated with the patient. Source: patient Medical history: Reports: atrial fibrillation, CHF, COPD, coronary artery disease, diabetes, hyperlipidemia, hypertension, osteoporosis Surgical history: Reports: cholecystectomy, hysterectomy Psychiatric history: Reports: anxiety, depression BE[employer] MERCHANT history: Reports: no BE[employer] MERCHANT history - Social History Smoking Status: Never smoker Smokeless Tobacco Status: No Alcohol use: Reports: none Drug use: Reports: none Physical Exam - General Limitations: no limitations General appearance: alert, in no apparent distress - Head Head exam: atraumatic, normocephalic - Eye Eye exam: Present: normal appearance, PERRL. Absent: scleral icterus, conjunctival injection, periorbital swelling - ENT ENT exam: mucous membranes moist - Neck Neck exam: Present: normal inspection, full ROM, trachea midline. Absent: tenderness, meningismus - Chest Chest inspection: Present: normal inspection - Respiratory Respiratory exam: Absent: respiratory distress, wheezes, stridor - Expanded Respiratory Exam Location: rales: Left, Right, Lower - Cardiovascular Cardiovascular exam: Present: regular rate, normal rhythm, normal heart sounds - Abdominal Exam Abdominal exam: Present: soft, tenderness, normal bowel sounds. Absent: distention, guarding, rebound, rigidity, mass, pulsatile mass Abdominal tenderness: Present: RUQ, mild - Extremities Exam Extremities exam: Present: full ROM, normal capillary refill, other (1+ pitting edema anterior tibial areas bilaterally, symmetric). Absent: tenderness, calf tenderness - Back Exam Back exam: Present: normal inspection - Neurological Exam Neurological exam: Present: alert, oriented X3, CN II-XII intact, normal gait - Psychiatric Psychiatric exam: Present: normal affect, normal mood - Skin Skin exam: Present: warm, dry, intact, normal color Course Course Narrative: Patient presents from home by squad for evaluation of "fluid building up in my lungs." She states that she has a history of CHF and has had this happen to her in the past. She denies any recent medication changes, diet or activity changes. She has had no recent illnesses. She denies fever, chills, nausea or vomiting. She has shortness of breath with exertion and swelling in the lower extremities. She also feels like her abdomen is a little distended but notes that she has had mild constipation since Tuesday. She also has some right upper quadrant abdominal pain but states that that did not bring her in here today and if she were not having the shortness of breath, she would not have come in for the abdominal discomfort. She appears uncomfortable but not toxic. She is not tachypneic or tachycardic. She is not wheezy or stridorous. She has mild rales bilaterally in the bases. Abdomen is soft, mildly tender in the right upper quadrant, nondistended, no ascites, no mass. Extremities are warm and well perfused with mild anterior tibial edema bilaterally. No calf tenderness bilaterally. Patient takes Lasix at home and has tried increasing her dose with no improvement in her symptoms. Labs, Lasix, EKG and x-ray have been ordered. Case was discussed with Dr. Phan. He has had [id number] time with patient and agrees with the assessment, plan. He also recommended CT of the abdomen and pelvis given the patient's complaint of abdominal pain with mild abdominal tenderness. Patient's EKG shows atrial fibrillation with normal rate. ST changes diffusely. EKG is unchanged compared to previous chest x-ray shows pulmonary vascular congestion. CT of the abdomen and pelvis shows no acute abnormality, small right pleural effusion. BNP is mildly elevated, troponin is normal. Blood sugar is 246 and creatinine is 1.22. Renal insufficiency is around baseline. She is also anemic, however this is at baseline as well. Patient continues to feel short of breath with ambulation to the restroom. She is anticoagulated, on Coumadin. INR is therapeutic. Will admit to the hospitalist for further diuresis and evaluation of congestive heart failure exacerbation, dyspnea on exertion, peripheral edema. Shortness of Breath/Dyspnea - Medical Records Medical records reviewed: Yes I reviewed the patient's medical records. - Lab Data Lab results reviewed: Yes I reviewed the patient's lab results. Lab results narrative: Laboratory Last Values WBC 5.0 K/mcL (4.3-11.1) 01/25/18 09:05 RBC 3.16 M/mcL (3.82-4.97) L 01/25/18 09:05 Hgb 9.2 g/dL (11.5-15.4) L 01/25/18 09:05 Hct 28.9 % (35.3-44.9) L 01/25/18 09:05 MCV 91.5 fL (83.0-100.0) 01/25/18 09:05 MCH 29.1 pg (28.0-33.3) 01/25/18 09:05 MCHC 31.8 g/dL (31.6-35.5) 01/25/18 09:05 RDW 16.9 % (11.5-14.5) H 01/25/18 09:05 Plt Count 119 K/mcL (140-400) L 01/25/18 09:05 MPV 10.3 fL (9.4-12.4) 01/25/18 09:05 Immature Gran % 0.8 % (0-4) 01/25/18 09:05 Seg Neutrophils % 73.1 % 01/25/18 09:05 Lymphocytes % 17.3 % 01/25/18 09:05 Monocytes % 7.0 % 01/25/18 09:05 Eosinophils % 1.4 % 01/25/18 09:05 Basophils % 0.4 % 01/25/18 09:05 Neutrophils # 3.6 K/mcL (1.6-8.9) 01/25/18 09:05 Lymphocytes # 0.9 K/mcL (0.6-4.6) 01/25/18 09:05 Monocytes # 0.4 K/mcL (0.0-1.3) 01/25/18 09:05 Eosinophils # 0.1 K/mcL (0.0-0.6) 01/25/18 09:05 Basophils # 0.0 K/mcL (0.0-0.2) 01/25/18 09:05 PT 36.5 Seconds (9.4-12.1) H 01/25/18 09:05 INR 3.3 01/25/18 09:05 Sodium 142 mEq/L (136-145) 01/25/18 09:05 Potassium 3.7 mEq/L (3.5-5.1) 01/25/18 09:05 Chloride 105 mEq/L (98-107) 01/25/18 09:05 Carbon Dioxide 29 mEq/L (23-29) 01/25/18 09:05 BUN 27 mg/dL (8-23) H 01/25/18 09:05 Creatinine 1.22 mg/dL (0.60-1.20) H 01/25/18 09:05 Est GFR ( Amer) 52 (> 60) L 01/25/18 09:05 Est GFR (Non-Af Amer) 43 (> 60) L 01/25/18 09:05 BUN/Creatinine Ratio 22 (6-26) 01/25/18 09:05 Glucose 246 mg/dL (70-105) H 01/25/18 09:05 Calculated Osmolality 307 (280-300) H 01/25/18 09:05 Lactic Acid 0.8 mmol/L (0.5-2.2) 01/25/18 09:05 Calcium 10.3 mg/dL (8.6-10.3) 01/25/18 09:05 Total Bilirubin 1.1 mg/dL (0.3-1.0) H 01/25/18 09:05 Direct Bilirubin 0.4 mg/dL (0.0-0.2) H 01/25/18 09:05 Indirect Bilirubin 0.7 mg/dL (0.0-1.2) 01/25/18 09:05 AST 16 Units/L (13-39) 01/25/18 09:05 ALT 12 Units/L (7-52) 01/25/18 09:05 Alkaline Phosphatase 67 Units/L (34-104) 01/25/18 09:05 Troponin I < 0.03 ng/mL (< 0.04) 01/25/18 09:05 B-Natriuretic Peptide 228 pg/mL (Less than 100) H 01/25/18 09:05 Serum Total Protein 6.7 g/dL (6.4-8.9) 01/25/18 09:05 Albumin 4.1 g/dL (3.5-5.7) 01/25/18 09:05 Globulin 2.6 g/dL (2.4-3.5) 01/25/18 09:05 Albumin/Globulin Ratio 1.6 (1.1-2.2) 01/25/18 09:05 Urine Color Yellow (Yellow) 01/25/18 09:50 Urine Clarity Clear (Clear) 01/25/18 09:50 Urine pH 6.0 pH Units (5.0-8.0) 01/25/18 09:50 Ur Specific Orient 1.016 (1.010-1.025) 01/25/18 09:50 Urine Protein Negative mg/dL (Neg-Trace) 01/25/18 09:50 Urine Glucose (UA) Normal mg/dL (Normal) 01/25/18 09:50 Urine Ketones Negative mg/dL (Negative) 01/25/18 09:50 Urine Blood Negative (Negative) 01/25/18 09:50 Urine Nitrite Negative (Negative) 01/25/18 09:50 Urine Bilirubin Negative (Negative) 01/25/18 09:50 Urine Urobilinogen Normal mg/dL (Normal) 01/25/18 09:50 Ur Leukocyte Esterase Small (Negative) H 01/25/18 09:50 Urine Microscopic RBC 0-3 per hpf (0-3) 01/25/18 09:50 Urine Microscopic WBC 5-15 per hpf (0-3) H 01/25/18 09:50 Ur Squamous Epith Cells Many per lpf (None-Few) H 01/25/18 09:50 Urine Bacteria Few per hpf (None-Few) 01/25/18 09:50 Hyaline Casts None Seen per lpf (None-Few) 01/25/18 09:50 Ur Culture Indicated? NO. (NO) A 01/25/18 09:50 - Radiology Data Radiology results reviewed: Yes I reviewed the patient's radiology results. Chest X-Ray 01/25/18 08:39 IMPRESSION: Pulmonary vascular congestion. D/ / Jalen Monterroso MD / Jalen Monterroso MD Interpreting Provider: Jalen Monterroso MD Abdomen/Pelvis CT 01/25/18 10:02 IMPRESSION: 1. No CT evidence for acute intra-abdominal process. 2. Similar findings of cirrhosis with borderline splenomegaly. 3. Diverticulosis without CT evidence of diverticulitis. 4. Small right pleural effusion. D/ / Sunny Treviño / Sunny Treviño Interpreting Provider: Sunny Treviño
[2018-01-25 09:24] LABS: Basophils % 0.4 %; Eosinophils # 0.1 K/mcL (0.0-0.6); Eosinophils % 1.4 %; Hematocrit 28.9 % (35.3-44.9); Hemoglobin 9.2 g/dL (11.5-15.4); Immature Granulocytes % 0.8 % (0-4); Lymphocytes # 0.9 K/mcL (0.6-4.6); Lymphocytes % 17.3 %; Mean Corpuscular HGB Conc 31.8 g/dL (31.6-35.5); Mean Corpuscular Hemoglobin 29.1 pg (28.0-33.3); Mean Corpuscular Volume 91.5 fL (83.0-100.0); Mean Platelet Volume 10.3 fL (9.4-12.4); Monocytes # 0.4 K/mcL (0.0-1.3); Neutrophils # 3.6 K/mcL (1.6-8.9); Platelet Count 119 K/mcL (140-400); Red Blood Count 3.16 M/mcL (3.82-4.97); Red Cell Distribution Width 16.9 % (11.5-14.5); Segmented Neutrophils % 73.1 %
[2018-01-25 09:31] LABS: INR 3.3; Prothrombin Time 36.5 Seconds (9.4-12.1)
[2018-01-25 09:36] LABS: Albumin 4.1 g/dL (3.5-5.7); Albumin/Globulin Ratio 1.6 (1.1-2.2); Bilirubin,Direct 0.4 mg/dL (0.0-0.2); Bilirubin,Indirect 0.7 mg/dL (0.0-1.2); Bilirubin,Total 1.1 mg/dL (0.3-1.0); Globulin 2.6 g/dL (2.4-3.5); Total Protein 6.7 g/dL (6.4-8.9)
[2018-01-25 09:38] LABS: BUN/Creatinine Ratio 22 (6-26); Blood Urea Nitrogen 27 mg/dL (8-23); Calcium 10.3 mg/dL (8.6-10.3); Carbon Dioxide 29 mEq/L (23-29); Chloride 105 mEq/L (98-107); Glucose 246 mg/dL (70-105); Osmolality,Calculated 307 (280-300); Potassium 3.7 mEq/L (3.5-5.1); Sodium 142 mEq/L (136-145); eGFR For African Americans 52 (> 60); eGFR For Non-African Americans 43 (> 60)
[2018-01-25 09:39] LABS: Troponin I < 0.03 ng/mL (< 0.04)
[2018-01-25 10:02] LABS: Bilirubin,Urine Negative (Negative); Blood,Urine Negative (Negative); Clarity,Urine Clear (Clear); Color,Urine Yellow (Yellow); Glucose,Urine (UA) Normal (Normal); Ketones,Urine Negative (Negative); Leukocyte Esterase,Urine Small (Negative); Nitrite,Urine Negative (Negative); Protein,Urine Negative (Neg-Trace); Specific Gravity,Urine 1.016 (1.010-1.025); Urobilinogen,Urine Normal (Normal)
[2018-01-25 10:05] LABS: Bacteria,Urine Few per hpf (None-Few); Hyaline Casts,Urine None Seen per lpf (None-Few); RBC,Urine 0-3 per hpf (0-3); Squamous Epithelial Cell,Urine Many per lpf (None-Few)
--- NOTE | 2018-01-25 11:11 | Emergency Department Note ---
Disposition Clinical Impression: Acute exacerbation of CHF (congestive heart failure) Qualifiers: Heart failure type: diastolic Qualified Code(s): I50.33 - Acute on chronic diastolic (congestive) heart failure Disposition: Admitted As Inpatient Condition: Fair General Adult HPI - General Chief complaint: ED Shortness of Breath/Dyspnea Stated complaint: shortness of breath Time Seen by Provider: 01/25/18 08:35 Source: patient, EMS Mode of arrival: EMS Limitations: no limitations - History of Present Illness Pain Scale: 6 - Related Data Home Medications Medication Instructions Recorded Confirmed Cyanocobalamin (Vitamin B-12) 2,000 mcg PO DAILY 03/10/15 01/25/18 [Vitamin B12] Insulin NPH Hum/Reg Insulin Hm 20 - 25 unit SQ BIDWM 03/10/15 01/25/18 [Novolin 70-30 100 Unit/ml Vial] Losartan Potassium [Cozaar] 50 mg PO DAILY 03/10/15 01/25/18 Pravastatin Sodium [Pravachol] 40 mg PO HS 03/10/15 01/25/18 Warfarin [Coumadin] 4 mg PO DAILY 03/10/15 01/25/18 Ferrous Sulfate 325 mg PO DAILY 01/04/17 01/25/18 Oxygen 2 l NS CONT 01/04/17 01/25/18 Allopurinol [Zyloprim 100 MG] 100 mg PO DAILY 01/25/18 01/25/18 Carvedilol [Carvedilol] 12.5 mg PO BID 01/25/18 01/25/18 Cinacalcet [Sensipar] 30 mg PO DAILY 01/25/18 01/25/18 Docusate [Colace] 100 mg PO TID PRN 01/25/18 01/25/18 Furosemide [Lasix] 40 - 80 mg PO DAILY PRN 01/25/18 01/25/18 Gabapentin [Neurontin] 100 mg PO TID 01/25/18 01/25/18 Levothyroxine [Synthroid] [place] [address]/25/18 01/25/18 Allergies Allergy/AdvReac Type Severity Reaction Status Date / Time azithromycin [From Zithromax] Allergy Hives Verified 01/25/18 08:44 doxycycline Allergy Hives Verified 01/25/18 08:44 nitrofurantoin Allergy Hives Verified 01/25/18 08:44 [From Macrobid] Penicillins Allergy Hives Verified 01/25/18 08:44 simvastatin AdvReac Muscle Pain Verified 01/25/18 08:44 Constitutional: Reports: weight change (Increased from 232-248 since last week) . Denies: fever, chills, weakness Eyes: Denies: vision change Cardiovascular: Reports: as per HPI, dyspnea on exertion, edema. Denies: chest pain, palpitations, orthopnea, syncope Respiratory: Reports: as per HPI, dyspnea. Denies: cough, wheezes, hemoptysis, stridor, sputum production Gastrointestinal: Reports: as per HPI, abdominal pain, constipation (Patient states that she had a small bowel movement on Tuesday but has not had one since then. She took a laxative last week with little improvement. Decreased oral intake lately). Denies: nausea, vomiting, diarrhea Genitourinary: Denies: urgency, dysuria, frequency, hematuria Musculoskeletal: Denies: back pain, neck pain, joint swelling Neurological: Denies: headache, weakness Endocrine: Reports: fatigue Hematological/Lymphatic: Denies: easy bleeding, easy bruising Past Medical History - Past Medical History Medical history: Reports: atrial fibrillation, CHF, COPD, coronary artery disease, diabetes, hyperlipidemia, hypertension, osteoporosis Surgical history: Reports: cholecystectomy, hysterectomy Psychiatric history: Reports: anxiety, depression CONDITIONER TUMBLER history: Reports: no CONDITIONER TUMBLER history - Social History Smoking Status: Never smoker Smokeless Tobacco Status: No Alcohol use: Reports: none Drug use: Reports: none Physical Exam - General Limitations: no limitations General appearance: alert Course Vital Signs Temperature 98.6 F 01/25/18 08:48 Pulse Rate 74 01/25/18 08:48 Respiratory Rate 28 01/25/18 08:48 Blood Pressure 139/78 01/25/18 08:48 O2 Sat by Pulse Oximetry 94 01/25/18 08:48 Temperature 98.1 F 01/25/18 16:44 Pulse Rate 72 01/25/18 16:44 Respiratory Rate 18 01/25/18 16:44 Blood Pressure 150/83 01/25/18 16:44 O2 Sat by Pulse Oximetry 94 01/25/18 16:44 Oxygen Delivery Oxygen Delivery Nasal Cannula Medical Decision Making - Lab Data Result diagrams: 01/25/18 09:05 01/25/18 09:05 Lab Results 06/01/25/18 01/25/18 Range/Units 09:05 09:05 09:05 WBC 5.0 (4.3-11.1) K/mcL RBC 3.16 L (3.82-4.97) M/mcL Hgb 9.2 L (11.5-15.4) g/dL Hct 28.9 L (35.3-44.9) % MCV 91.5 (83.0-100.0) fL MCH 29.1 (28.0-33.3) pg MCHC 31.8 (31.6-35.5) g/dL RDW 16.9 H (11.5-14.5) % Plt Count 119 L (140-400) K/mcL MPV 10.3 (9.4-12.4) fL Immature Gran % 0.8 (0-4) % Seg Neutrophils % 73.1 % Lymphocytes % 17.3 % Monocytes % 7.0 % Eosinophils % 1.4 % Basophils % 0.4 % Neutrophils # 3.6 (1.6-8.9) K/mcL Lymphocytes # 0.9 (0.6-4.6) K/mcL Monocytes # 0.4 (0.0-1.3) K/mcL Eosinophils # 0.1 (0.0-0.6) K/mcL Basophils # 0.0 (0.0-0.2) K/mcL PT 36.5 H (9.4-12.1) Seconds INR 3.3 Sodium (136-145) mEq/L Potassium (3.5-5.1) mEq/L Chloride (98-107) mEq/L Carbon Dioxide (23-29) mEq/L BUN (8-23) mg/dL Creatinine (0.60-1.20) mg/dL Est GFR ( Amer) (> 60) Est GFR (Non-Af Amer) (> 60) BUN/Creatinine Ratio (6-26) Glucose (70-105) mg/dL Calculated Osmolality (280-300) Lactic Acid (0.5-2.2) mmol/L Calcium (8.6-10.3) mg/dL Total Bilirubin 1.1 H (0.3-1.0) mg/dL Direct Bilirubin 0.4 H (0.0-0.2) mg/dL Indirect Bilirubin 0.7 (0.0-1.2) mg/dL AST 16 (13-39) Units/L ALT 12 (7-52) Units/L Alkaline Phosphatase 67 (34-104) Units/L Troponin I (< 0.04) ng/mL B-Natriuretic Peptide (Less than 100) pg/mL Serum Total Protein 6.7 (6.4-8.9) g/dL Albumin 4.1 (3.5-5.7) g/dL Globulin 2.6 (2.4-3.5) g/dL Albumin/Globulin Ratio 1.6 (1.1-2.2) Urine Color (Yellow) Urine Clarity (Clear) Urine pH (5.0-8.0) pH Units Ur Specific [place] (1.010-1.025) Urine Protein (Neg-Trace) mg/dL Urine Glucose (UA) (Normal) mg/dL Urine Ketones (Negative) mg/dL Urine Blood (Negative) Urine Nitrite (Negative) Urine Bilirubin (Negative) Urine Urobilinogen (Normal) mg/dL Ur Leukocyte Esterase (Negative) Urine Microscopic RBC (0-3) per hpf Urine Microscopic WBC (0-3) per hpf Ur Squamous Epith Cells (None-Few) per lpf Urine Bacteria (None-Few) per hpf Hyaline Casts (None-Few) per lpf Ur Culture Indicated? (NO) 01/25/18 01/25/18 01/25/18 Range/Units 09:05 09:05 09:05 WBC (4.3-11.1) K/mcL RBC (3.82-4.97) M/mcL Hgb (11.5-15.4) g/dL Hct (35.3-44.9) % MCV (83.0-100.0) fL MCH (28.0-33.3) pg MCHC (31.6-35.5) g/dL RDW (11.5-14.5) % Plt Count (140-400) K/mcL MPV (9.4-12.4) fL Immature Gran % (0-4) % Seg Neutrophils % % Lymphocytes % % Monocytes % % Eosinophils % % Basophils % % Neutrophils # (1.6-8.9) K/mcL Lymphocytes # (0.6-4.6) K/mcL Monocytes # (0.0-1.3) K/mcL Eosinophils # (0.0-0.6) K/mcL Basophils # (0.0-0.2) K/mcL PT (9.4-12.1) Seconds INR Sodium 142 (136-145) mEq/L Potassium 3.7 (3.5-5.1) mEq/L Chloride 105 (98-107) mEq/L Carbon Dioxide 29 (23-29) mEq/L BUN 27 H (8-23) mg/dL Creatinine 1.22 H (0.60-1.20) mg/dL Est GFR ( Amer) 52 L (> 60) Est GFR (Non-Af Amer) 43 L (> 60) BUN/Creatinine Ratio 22 (6-26) Glucose 246 H (70-105) mg/dL Calculated Osmolality 307 H (280-300) Lactic Acid 0.8 (0.5-2.2) mmol/L Calcium 10.3 (8.6-10.3) mg/dL Total Bilirubin (0.3-1.0) mg/dL Direct Bilirubin (0.0-0.2) mg/dL Indirect Bilirubin (0.0-1.2) mg/dL AST (13-39) Units/L ALT (7-52) Units/L Alkaline Phosphatase (34-104) Units/L Troponin I < 0.03 (< 0.04) ng/mL B-Natriuretic Peptide 228 H (Less than 100) pg/mL Serum Total Protein (6.4-8.9) g/dL Albumin (3.5-5.7) g/dL Globulin (2.4-3.5) g/dL Albumin/Globulin Ratio (1.1-2.2) Urine Color (Yellow) Urine Clarity (Clear) Urine pH (5.0-8.0) pH Units Ur Specific [place] (1.010-1.025) Urine Protein (Neg-Trace) mg/dL Urine Glucose (UA) (Normal) mg/dL Urine Ketones (Negative) mg/dL Urine Blood (Negative) Urine Nitrite (Negative) Urine Bilirubin (Negative) Urine Urobilinogen (Normal) mg/dL Ur Leukocyte Esterase (Negative) Urine Microscopic RBC (0-3) per hpf Urine Microscopic WBC (0-3) per hpf Ur Squamous Epith Cells (None-Few) per lpf Urine Bacteria (None-Few) per hpf Hyaline Casts (None-Few) per lpf Ur Culture Indicated? (NO) 01/25/18 Range/Units 09:50 WBC (4.3-11.1) K/mcL RBC (3.82-4.97) M/mcL Hgb (11.5-15.4) g/dL Hct (35.3-44.9) % MCV (83.0-100.0) fL MCH (28.0-33.3) pg MCHC (31.6-35.5) g/dL RDW (11.5-14.5) % Plt Count (140-400) K/mcL MPV (9.4-12.4) fL Immature Gran % (0-4) % Seg Neutrophils % % Lymphocytes % % Monocytes % % Eosinophils % % Basophils % % Neutrophils # (1.6-8.9) K/mcL Lymphocytes # (0.6-4.6) K/mcL Monocytes # (0.0-1.3) K/mcL Eosinophils # (0.0-0.6) K/mcL Basophils # (0.0-0.2) K/mcL PT (9.4-12.1) Seconds INR Sodium (136-145) mEq/L Potassium (3.5-5.1) mEq/L Chloride (98-107) mEq/L Carbon Dioxide (23-29) mEq/L BUN (8-23) mg/dL Creatinine (0.60-1.20) mg/dL Est GFR ( Amer) (> 60) Est GFR (Non-Af Amer) (> 60) BUN/Creatinine Ratio (6-26) Glucose (70-105) mg/dL Calculated Osmolality (280-300) Lactic Acid (0.5-2.2) mmol/L Calcium (8.6-10.3) mg/dL Total Bilirubin (0.3-1.0) mg/dL Direct Bilirubin (0.0-0.2) mg/dL Indirect Bilirubin (0.0-1.2) mg/dL AST (13-39) Units/L ALT (7-52) Units/L Alkaline Phosphatase (34-104) Units/L Troponin I (< 0.04) ng/mL B-Natriuretic Peptide (Less than 100) pg/mL Serum Total Protein (6.4-8.9) g/dL Albumin (3.5-5.7) g/dL Globulin (2.4-3.5) g/dL Albumin/Globulin Ratio (1.1-2.2) Urine Color Yellow (Yellow) Urine Clarity Clear (Clear) Urine pH 6.0 (5.0-8.0) pH Units Ur Specific [place] 1.016 (1.010-1.025) Urine Protein Negative (Neg-Trace) mg/dL Urine Glucose (UA) Normal (Normal) mg/dL Urine Ketones Negative (Negative) mg/dL Urine Blood Negative (Negative) Urine Nitrite Negative (Negative) Urine Bilirubin Negative (Negative) Urine Urobilinogen Normal (Normal) mg/dL Ur Leukocyte Esterase Small H (Negative) Urine Microscopic RBC 0-3 (0-3) per hpf Urine Microscopic WBC 5-15 H (0-3) per hpf Ur Squamous Epith Cells Many H (None-Few) per lpf Urine Bacteria Few (None-Few) per hpf Hyaline Casts None Seen (None-Few) per lpf Ur Culture Indicated? NO. A (NO) Attestation Statement - Attestation Attestation: For this encounter, I have reviewed the HAND BASEBALL SEWER or PA documentation, treatment plan, and medical decision making; and I have had face to face time with this patient. 77-year-old with history of CHF in the past comes in with increasing shortness of breath. Physical examination lungs are diminished occasional rhonchi. Chest x-ray shows congestion BNP is elevated patient does have some renal insufficiency. Patient will be admitted for further evaluation and treatment.
[2018-01-25] MEDS ORDERED: Naloxone 0.4 MG/ML INJ IVP PRN (14:25)
[2018-01-25] MEDS ORDERED: *HR* Dextrose 50 % in Water (Syg) 50 ML SYRINGE IVP PRN (14:33)
[2018-01-25] MEDS ORDERED: Dextrose Gel 15 GM/37.5 ML TUBE PO PRN ×2 (14:33)
[2018-01-25] MEDS ORDERED: D5% in Water 1,000 ML IVC PRN (14:33)
--- NOTE | 2018-01-25 14:56 | Electrocardiograph Report ---
[facility] Test Date: 2018-01-25 Pat Name: Yana Baird Department: 103 Room: 2A71 Gender: F Net Trainer: : 1940 Requested By: Linette Rodrigez Order Number: [id number] Reading MD: Jakob Wilkes Measurements Intervals [place] Rate: 77 P: MI: 0 QRS: 5 QRSD: 89 T: 31 QT: 280 QTc: 312 Interpretive Statements ATRIAL FIBRILLATION LOW QRS VOLTAGE IN PRECORDIAL LEADS [QRS DEFLECTION < 1.0 mV IN CHEST LEADS] PATTERN CONSISTENT WITH PULMONARY DISEASE POSSIBLE RIGHT VENTRICULAR CONDUCTION DELAY [RSR (QR) IN V1/V2] ST DEVIATION AND MODERATE T-WAVE ABNORMALITY, CONSIDER ANTERIOR ISCHEMIA [-0.1+ mV T WAVE IN V3/V4] Electronically Signed On 01-25-2018 14:54:47 EDT by Jakob Wilkes
--- NOTE | 2018-01-25 15:02 | Internal Med History&Physical ---
<Alexander Wynn Renuka - Last Filed: 01/25/18 17:16> Date of Encounter: 01/25/18 Time of Encounter: 13:00 Internal Medicine - H&P: HPI Chief complaint: SOB/Dyspnea Admitted From: Emergency Dept Plans for Post Hospital Care: Home History of present illness: Ms. Baird is a 77 year old female w?PMH of atrial fibrillation, CHF, COPD, CAD, diabetes, HLD, HTN, and osteoporosis presents from the ED w/CC of SOB/dyspnea for the past 2-3 days with the feeling of "filling up w/fluid". Pt. reports this has happened in the past and required hospitalization 1 year ago. Reports taking PO lasix 40-80 mg daily depending on sx. Accompanying sx: reduced appetite/intake, orthopnea, increased pedal edema, and a weight gain of >10 pounds in the past 1-2 weeks. Pt. reports constipation, weakness, and fatigue but denies recent illness, fever, chills, nausea, vomiting, headache, changes in vision, chest pain, unusual bleeding, abdominal pain, diarrhea, constipation , dizziness, lightheadedness, numbness, tingling, pre-syncope, or syncope. Past Med Surg Social Fam HX - Past Medical History Source: patient, old records reviewed Medical history: atrial fibrillation, CHF, COPD, coronary artery disease, diabetes, hyperlipidemia, hypertension, osteoporosis Additional medical history: obstructive sleep apnea, thryoid disease, CKD stage 3, anemia, cirrhosis, UTI, gout Psychiatric history: anxiety, depression - Past Surgical History Surgical History: cholecystectomy, hysterectomy - Social History Smoking Status: Never smoker Smokeless Tobacco Status: No Alcohol use: none Drug use: none Current living situation: Home Activity Level: Uses cane/walker Recent Out of Country Travel Within the Last 8 Weeks: No Exposure or Possible Exposure to Illness During Travel: No - Family History Mother Race: Family Member Ethnicity: Non- Living Status: Age at : 82 Cause of : Liver cancer Hx Family Cancer: Yes (Liver) Father Race: Family Member Ethnicity: Non- Living Status: Age at : 86 Cause of : Metastatic cancer Hx Family Cardiac Disorders: Yes (Pacemaker) Hx Family Cancer: Yes (Lung/bone) Hx Family Endocrine Disorder: Yes (diabetes) Brother Race: Family Member Ethnicity: Non- Living Status: Age at : 76 Cause of : Prostate cancer Hx Family Cancer: Yes (Prostate) Sister Race: Family Member Ethnicity: Non- Living Status: Age at : 50 Cause of : Leukemia Hx Family Cancer: Yes (Leukemia) Internal Medicine - H&P: Meds Cyanocobalamin (Vitamin B-12) [Vitamin B12] 2,000 mcg PO DAILY 03/10/15 [History ] Insulin NPH Hum/Reg Insulin Hm [Novolin 70-30 100 Unit/ml Vial] 20 - 25 unit SQ BIDWM 03/10/15 [History] Losartan Potassium [Cozaar] 50 mg PO DAILY 03/10/15 [History] Pravastatin Sodium [Pravachol] 40 mg PO HS 03/10/15 [History] Warfarin [Coumadin] 4 mg PO DAILY 03/10/15 [History] Ferrous Sulfate 325 mg PO DAILY 01/04/17 [History] Oxygen 2 l NS CONT 01/04/17 [History] Allopurinol [Zyloprim 100 MG] 100 mg PO DAILY 01/25/18 [History] Carvedilol [Carvedilol] 12.5 mg PO BID 01/25/18 [History] Cinacalcet [Sensipar] 30 mg PO DAILY 01/25/18 [History] Docusate [Colace] 100 mg PO TID PRN 01/25/18 [History] Furosemide [Lasix] 40 - 80 mg PO DAILY PRN 01/25/18 [History] Gabapentin [Neurontin] 100 mg PO TID 01/25/18 [History] Levothyroxine [Synthroid] 125 mcg PO 0630 01/25/18 [History] 3 Allergy/AdvReac Type Severity Reaction Status Date / Time azithromycin [From Zithromax] Allergy Hives Verified 01/25/18 08:44 doxycycline Allergy Hives Verified 01/25/18 08:44 nitrofurantoin Allergy Hives Verified 01/25/18 08:44 [From Macrobid] Penicillins Allergy Hives Verified 01/25/18 08:44 simvastatin AdvReac Muscle Pain Verified 01/25/18 08:44 All Systems PM: A 10-system review of systems was performed and is negative for pertinent findings except as documented above in the HPI. - Constitutional Constitutional: as per HPI, anorexia, fatigue, weakness, no chills, no fever(s) , no night sweats - EENT Eyes: no change in vision, no discharge, no pain, no photophobia Ears: no ear discharge, no ear pain, no tinnitus Nose, mouth and throat: no dysphagia, no nasal discharge, no neck pain, no sore throat - Breasts Breasts: as per HPI - Cardiovascular Cardiovascular ROS IM: dyspnea, dyspnea on exertion, edema (Bilateral pedal edema), irregular heart rhythm (Atrial fibrillation), orthopnea, no chest pain, no diaphoresis, no lightheadedness, no palpitations, no syncope - Respiratory Respiratory: dyspnea, dyspnea on exertion, no cough, no wheezing, no excessive phlegm production - Gastrointestinal Gastrointestinal: as per HPI, constipation, no abdominal pain, no diarrhea, no hematemesis, no hematochezia, no melena, no nausea, no vomiting - Genitourinary Genitourinary: no change in urinary stream, no dysuria, no flank pain, no hematuria Menstruation: as per HPI, post hysterectomy - Musculoskeletal Musculoskeletal ROS IM: as per HPI, back pain, no numbness, no tingling - Integumentary Integumentary IM: as per HPI, no rash, no unusual bruising - Neurological Neurological ROS: no confusion, no convulsions, no focal weakness, no numbness, no tingling, no tremor(s) - Psychiatric Psychiatric: as per HPI, anxiety, depression - Endocrine Endocrine IM: as per HPI - Hematologic/Lymphatic Hematologic/Lymphatic: no easy bruising - Allergic/Immunologic Allergic/Immunologic: as per HPI - Constitutional Vitals: Temp Pulse Resp BP Pulse Ox 98.4 F 82 19 158/85 93 01/25/18 14:43 01/25/18 14:43 01/25/18 14:43 01/25/18 14:43 01/25/18 14:43 General appearance: Present: cooperative, A&O X 3, morbidly obese, pleasant, no acute distress, answers questions appropriately - Head Head exam: Present: atraumatic, normocephalic - Eye Eye exam: Present: PERRL, conjuntiva pink, sclera anicteric Pupils: Present: PERRL - ENT ENT exam: Present: normal exam - Neck Neck exam general surgery: Present: normal inspection, supple, trachea midline. Absent: lymphadenopathy - Respiratory Respiratory exam: Present: accessory muscle use, decreased breath sounds. Absent: rales, rhonchi, wheezes - Cardiovascular Cardiovascular exam: Present: irregular rhythm (Atrial fibrillation) - GI/Abdominal GI/Abdominal exam: Present: normal bowel sounds, soft, no peritoneal signs. Absent: distended, tenderness - Rectal Rectal exam: Present: deferred - Additional comments: exam deferred. - Extremities Exam Extremities exam: Present: pedal edema (Bilateral), warm, radial pulses palpable and symmetrical. Absent: calf tenderness, cyanotic - Back Exam Back exam: Present: normal inspection - Neurological Exam Neurological exam: Present: CN II-XII intact, oriented X3, no focal deficits. Absent: pronater drift, facial droop, speech deficit - Psychiatric Psychiatric exam: Present: normal affect, normal mood - Skin Skin exam: Present: dry, intact Internal Med - H&P Results - Labs CBC & Chem 7: 01/25/18 09:05 01/25/18 09:05 - EKG Data Prior EKG available for review: yes EKG comments: 01/25/18 15:09 EKG dated 09/22/17 shows atrial fibrillation with low QRS voltage in precordial leads and moderate ST depression. EKG dated 01/25/18 shows atrial fibrillation with low QRS voltage in precordial leads, pattern consistent with pulmonary disease. Possible right ventricular conduction delay, ST deviation, moderate T-wave abnormality. Consider anterior ischemia. - Diagnostic Studies Chest x-ray Additional comments: Impressions Chest X-Ray 01/25/18 08:39 IMPRESSION: Pulmonary vascular congestion. D/ / Jalen Monterroso MD / Jalen Monterroso MD Interpreting Provider: Jalen Monterroso MD CT scan - abdomen Additional comments: Impressions Abdomen/Pelvis CT 01/25/18 10:02 IMPRESSION: 1. No CT evidence for acute intra-abdominal process. 2. Similar findings of cirrhosis with borderline splenomegaly. 3. Diverticulosis without CT evidence of diverticulitis. 4. Small right pleural effusion. D/ / Sunny Treviño / Sunny Treviño Interpreting Provider: Sunny Treviño - Assessment and plan (1) Acute exacerbation of CHF (congestive heart failure) Current Visit: Yes Status: Acute Assessment and plan: Acute exacerbation of CHF. BNP 228 on admission. Patient reports SOB/dyspnea/ orthopnea and pedal edema/weight gain for the past 2-3 days. Previous history of similar symptoms a year ago requiring hospitalization. Reports taking 40-80 mg by mouth Lasix daily depending on symptoms. Echocardiogram dated 09/25 showed LVEF 60-65%, indeterminate diastolic function, dilated RV normal function , biatrial enlargement, mild atrial regurgitation, mild tricuspid regurgitation , mild pulmonary hypertension. There is a trivial pericardial effusion present. There is no echocardiographic evidence of tamponade. Initial troponin <0.03. Will trend. Continuous cardiac telemetry. Hold PO lasix and administer 40 mg IVP lasix BID. Monitor I&O and daily weight. 1.5L daily fluid restriction. Pt. is high risk for further morbidity d/t current acute exacerbation of CHF requiring IVP lasix, increased SOB/dyspnea/orthopnea/weight gain, morbid obesity , hx of similar sx d/t CHF; and risk factors of atrial fibrillation, CAD, HLD, HTN. Observation. Qualifiers: Heart failure type: diastolic Qualified Code(s): I50.33 - Acute on chronic diastolic (congestive) heart failure (2) COPD (chronic obstructive pulmonary disease) Current Visit: Yes Status: Chronic Assessment and plan: Hx of chronic COPD. Stable. Supplemental O2 with titration and SPO2 monitoring due to current CHF exacerbation. Qualifiers: COPD type: unspecified COPD Qualified Code(s): J44.9 - Chronic obstructive pulmonary disease, unspecified (3) CAD (coronary artery disease) Current Visit: Yes Status: Chronic Assessment and plan: Hx of chronic CAD. Hx of CHF. Echocardiogram dated 09/25 showed LVEF 60-65%, indeterminate diastolic function, dilated RV normal function, biatrial enlargement, mild atrial regurgitation, mild tricuspid regurgitation, mild pulmonary hypertension. There is a trivial pericardial effusion present. There is no echocardiographic evidence of tamponade. Continue patient's, Coumadin with pharmacy dosing, Cozaar, and pravastatin. Qualifiers: Coronary Disease-Associated Artery/Lesion type: [place] artery [place] vs. transplanted heart: [place] heart Associated angina: angina presence unspecified Qualified Code(s): I25.10 - Atherosclerotic heart disease of [place] coronary artery without angina pectoris (4) HLD (hyperlipidemia) Current Visit: Yes Status: Chronic Assessment and plan: Hx of chronic HLD. Lipid panel in a.m. labs. Continue pts. Pravastatin. Qualifiers: Hyperlipidemia type: pure hypercholesterolemia Qualified Code(s): E78.00 - Pure hypercholesterolemia, unspecified; E78.0 - Pure hypercholesterolemia (5) HTN (hypertension) Current Visit: Yes Status: Chronic Assessment and plan: Hx of chronic HTN. Monitor pt. and VS. Continue pts. carvedilol and Cozaar. Qualifiers: Hypertension type: essential hypertension Qualified Code(s): I10 - Essential (primary) hypertension (6) Atrial fibrillation Current Visit: Yes Status: Chronic Assessment and plan: Hx of chronic atrial fibrillation. Continuous cardiac telemetry. Continue pts. Warfarin w/Pharmacy dosing. Monitor pt. for signs of bleeding d/t GI bleed hx. Qualifiers: Atrial fibrillation type: chronic Qualified Code(s): I48.2 - Chronic atrial fibrillation (7) CKD (chronic kidney disease) stage 3, GFR 30-59 ml/min Current Visit: Yes Status: Chronic Assessment and plan: Hx of CKD. Currently stage III w/GFR of 43 and creatinine of 1.22. Will use IV fluids judiciously if warranted d/t current CHF exacerbation and renal dysfunction. Monitor I&O and daily weight. (8) Chronic anemia Current Visit: Yes Status: Chronic Assessment and plan: Hx of chronic anemia. Hgb 9.2 and Hct 29.9 on admission which is down from 10.1 in 08/2017 but near pts baseline for previous year. Pt. denies unusual bleeding but has hx of GI bleed. Monitor H/H in f/u labs and pt. for signs of bleeding since pt. takes Coumadin for Afib. (9) Diabetes mellitus Current Visit: Yes Status: Chronic Assessment and plan: Hx of chronic diabetes controlled w/insulin. Low-dose correction sliding scale insulin w/hypoglycemic protocol. BG checks ACHS. A1c in a.m. labs. Qualifiers: Diabetes mellitus type: type 2 Diabetes mellitus care home insulin use: with computer terminal operator use Diabetes mellitus complication status: with neurologic complications Diabetes mellitus complication detail: with unspecified neuropathy Qualified Code(s): E11.40 - Type 2 diabetes mellitus with diabetic neuropathy, unspecified; Z79.4 - group home (current) use of insulin (10) Hypothyroidism Current Visit: Yes Status: Chronic Assessment and plan: Hx of chronic hypothyroidism. TSH and Free T4 ordered in a.m. labs. Continue patient's Synthroid. Qualifiers: Hypothyroidism type: unspecified Qualified Code(s): E03.9 - Hypothyroidism , unspecified (11) MONIK (obstructive sleep apnea) Current Visit: Yes Status: Chronic Assessment and plan: Hx of MONIK. Pt. reports having CPAP at home but does not use. Supplemental O2 w/ titration and SpO2 monitoring. Monitor for BiPAP/CPAP need. (12) DVT prophylaxis Current Visit: Yes Status: Acute Assessment and plan: Continue pts. Warfarin w/Pharmacy dosing for DVT prophylaxis. Monitor pt. for signs of bleeding d/t hx of GI bleeding. (13) SOB (shortness of breath) Current Visit: Yes Status: Acute Assessment and plan: Acute SOB/dyspnea/orthopnea d/t current acute exacerbation of CHF. Supplemental O2 with titration and SPO2 monitoring. IVP Lasix 40 mg twice a day. Monitor I& O and daily weight. Falls/safety precautions, up with assist, bed rest w/ bathroom privileges w/assist only. VQ scan ordered to r/o PE d/t sx. - Time Spent With Patient Total time spent is greater than 50% in coordination of care (as documented) at patient's floor/unit and/or counseling patient: Greater than 35 minutes <Glen Kaur - Last Filed: 01/26/18 10:55> Date of Encounter: 01/26/18 Internal Medicine - H&P: HPI History of present illness: Ms. Baird is a 77 year old female All Systems PM: A 10-system review of systems was performed and is negative for pertinent findings except as documented above in the HPI. - Constitutional Vitals: Temp Pulse Resp BP Pulse Ox 98.3 F 80 20 117/63 95 01/26/18 08:06 01/26/18 08:06 01/26/18 08:06 01/26/18 08:06 01/26/18 08:06 Internal Med - H&P Results - Labs CBC & Chem 7: 01/26/18 06:01 01/26/18 06:01 Labs: Short CBC 01/26/18 Range/Units 06:01 WBC 3.7 L (4.3-11.1) K/mcL Hgb 8.9 L (11.5-15.4) g/dL Hct 27.9 L (35.3-44.9) % Plt Count 102 L (140-400) K/mcL Neutrophils # 2.4 (1.6-8.9) K/mcL BMP 01/26/18 06:01 Sodium 143 Potassium 3.6 Chloride 105 Carbon Dioxide 34 H BUN 27 H Creatinine 1.03 Glucose 194 H Calcium 10.2 Cardiac Enzymes 01/25/18 01/25/18 Range/Units 14:59 20:35 Troponin I 0.03 0.03 (< 0.04) ng/mL Liver Function 01/26/18 Range/Units 06:01 Total Bilirubin 1.4 H (0.3-1.0) mg/dL AST 15 (13-39) Units/L ALT 11 (7-52) Units/L Alkaline Phosphatase 70 (34-104) Units/L Albumin 4.0 (3.5-5.7) g/dL - Impressions ITS Impressions Pulmonary Perfusion Imaging 01/25/18 14:49 IMPRESSION: Low probability for pulmonary embolus. D/ / Kip Barrett MD / Kip Barrett MD Interpreting Provider: Kip Barrett MD - Attending Attestation Discussed with JOSE and agree with assessment and plan as above. Patient is a 77-year-old female with history of heart failure who presented with shortness of breath found to be in acute on chronic heart failure. On cardiovascular exam patient was in regular rate and rhythm with no murmurs rubs or gallops; nonacute distress; lung exam revealed faint to minimal crackles Will treat acute exacerbation of heart failure with IV diuresis as above Will also order a VQ scan to rule out PE since acute shortness of breath was sudden in onset - Assessment and plan (1) Acute exacerbation of CHF (congestive heart failure) Current Visit: Yes Status: Acute Qualifiers: Heart failure type: diastolic Qualified Code(s): I50.33 - Acute on chronic diastolic (congestive) heart failure (2) Atrial fibrillation Current Visit: Yes Status: Chronic Qualifiers: Atrial fibrillation type: chronic Qualified Code(s): I48.2 - Chronic atrial fibrillation (3) Diabetes mellitus Current Visit: Yes Status: Chronic Qualifiers: Diabetes mellitus type: type 2 Diabetes mellitus care home insulin use: with care home use Diabetes mellitus complication status: with neurologic complications Diabetes mellitus complication detail: with unspecified neuropathy Qualified Code(s): E11.40 - Type 2 diabetes mellitus with diabetic neuropathy, unspecified; Z79.4 - group home (current) use of insulin (4) Chronic anemia Current Visit: Yes Status: Chronic (5) MONIK (obstructive sleep apnea) Current Visit: Yes Status: Chronic (6) Hypothyroidism Current Visit: Yes Status: Chronic Qualifiers: Hypothyroidism type: unspecified Qualified Code(s): E03.9 - Hypothyroidism , unspecified (7) CKD (chronic kidney disease) stage 3, GFR 30-59 ml/min Current Visit: Yes Status: Chronic (8) COPD (chronic obstructive pulmonary disease) Current Visit: Yes Status: Chronic Qualifiers: COPD type: unspecified COPD Qualified Code(s): J44.9 - Chronic obstructive pulmonary disease, unspecified (9) CAD (coronary artery disease) Current Visit: Yes Status: Chronic Qualifiers: Coronary Disease-Associated Artery/Lesion type: [place] artery [place] vs. transplanted heart: nome heart Associated angina: angina presence unspecified Qualified Code(s): I25.10 - Atherosclerotic heart disease of [place] coronary artery without angina pectoris (10) HLD (hyperlipidemia) Current Visit: Yes Status: Chronic Qualifiers: Hyperlipidemia type: pure hypercholesterolemia Qualified Code(s): E78.00 - Pure hypercholesterolemia, unspecified; E78.0 - Pure hypercholesterolemia (11) HTN (hypertension) Current Visit: Yes Status: Chronic Qualifiers: Hypertension type: essential hypertension Qualified Code(s): I10 - Essential (primary) hypertension (12) DVT prophylaxis Current Visit: Yes Status: Acute (13) SOB (shortness of breath) Current Visit: Yes Status: Acute - Time Spent With Patient Total time spent is greater than 50% in coordination of care (as documented) at patient's floor/unit and/or counseling patient:
[2018-01-25] MEDS: Gabapentin 100 MG CAPSULE PO SCH ×2 (16:12→21:11)
[2018-01-25] MEDS: Insulin LISPRO 300 UNITS/3 ML VIAL SQ SCH ×2 (17:07→21:10)
[2018-01-25] MEDS ORDERED: Warfarin perPT PO PRN (18:00)
[2018-01-25] MEDS ORDERED: *HR* Warfarin 2 MG TABLET PO ONE (18:20)
[2018-01-25] MEDS: Furosemide 40 MG/4 ML VIAL IVP SCH (21:10)
[2018-01-25] MEDS: Acetaminophen 325 MG TABLET PO PRN (21:13)
[2018-01-26 06:31] LABS: Eosinophils % 2.2 %; Hemoglobin 8.9 g/dL (11.5-15.4); Immature Granulocytes % 0.8 % (0-4); Mean Corpuscular Volume 90.6 fL (83.0-100.0)
[2018-01-26 06:32] LABS: Basophils % 0.3 %; Eosinophils # 0.1 K/mcL (0.0-0.6); Hematocrit 27.9 % (35.3-44.9); Immature Platelets 1.2 % (1.1-6.1); Lymphocytes # 0.9 K/mcL (0.6-4.6); Lymphocytes % 23.7 %; Mean Corpuscular HGB Conc 31.9 g/dL (31.6-35.5); Mean Corpuscular Hemoglobin 28.9 pg (28.0-33.3); Monocytes # 0.3 K/mcL (0.0-1.3); Monocytes % 7.1 %; Neutrophils # 2.4 K/mcL (1.6-8.9); Platelet Count 102 K/mcL (140-400); Red Blood Count 3.08 M/mcL (3.82-4.97); Red Cell Distribution Width 16.9 % (11.5-14.5); Segmented Neutrophils % 65.9 %
[2018-01-26 06:38] LABS: INR 2.6
[2018-01-26 06:53] LABS: Alanine Aminotransferase 11 Units/L (7-52); Albumin/Globulin Ratio 1.7 (1.1-2.2); Alkaline Phosphatase 70 Units/L (34-104); Aspartate Amino Transferase 15 Units/L (13-39); BUN/Creatinine Ratio 26 (6-26); Bilirubin,Total 1.4 mg/dL (0.3-1.0); Blood Urea Nitrogen 27 mg/dL (8-23); Calcium 10.2 mg/dL (8.6-10.3); Carbon Dioxide 34 mEq/L (23-29); Chloride 105 mEq/L (98-107); Chol/HDL Ratio 2.7 (0-4.9); Cholesterol 113 mg/dL (< 200); Globulin 2.3 g/dL (2.4-3.5); Glucose 194 mg/dL (70-105); HDL Cholesterol 42 mg/dL (40-59); LDL Cholesterol,Calculated 50 mg/dL (0-99); Magnesium 1.6 mg/dL (1.6-2.6); Osmolality,Calculated 306 (280-300); Potassium 3.6 mEq/L (3.5-5.1); Sodium 143 mEq/L (136-145); Total Protein 6.3 g/dL (6.4-8.9); Triglycerides 105 mg/dL (< 150); eGFR For African Americans > 60 (> 60); eGFR For Non-African Americans 52 (> 60)
[2018-01-26 07:08] LABS: Thyroid Stimulating Hormone 0.716 mcIU/mL (0.340-5.600)
[2018-01-26] MEDS: Acetaminophen 325 MG TABLET PO PRN ×2 (08:21→17:35)
[2018-01-26] MEDS: Gabapentin 100 MG CAPSULE PO SCH ×3 (08:21→20:53)
[2018-01-26] MEDS: Furosemide 40 MG/4 ML VIAL IVP SCH (08:22)
[2018-01-26] MEDS: Cyanocobalamin (B-12) 1,000 MCG TABLET PO SCH (08:22)
[2018-01-26] MEDS: Insulin LISPRO 300 UNITS/3 ML VIAL SQ SCH ×4 (08:22→20:49)
[2018-01-26 09:49] LABS: Estimated Average Glucose 143 mg/dl; Hemoglobin A1C 6.6 %
[2018-01-26] MEDS ORDERED: *HR* Warfarin 4 MG TABLET PO ONE (18:00)
[2018-01-26] MEDS: Insulin DETEMIR 100 UNIT/ML X5UNITS SQ SCH (20:50)
[2018-01-26] MEDS: traMADol 50 MG TABLET PO PRN (21:04)
--- NOTE | 2018-01-26 23:37 | Internal Med Progress Note ---
Date of Encounter: 01/26/18 Time of Encounter: 23:37 - Assessment and plan (1) Acute on chronic diastolic (congestive) heart failure Status: Acute (2) Acute hypokalemia Status: Acute (3) COPD (chronic obstructive pulmonary disease) Status: Chronic Qualifiers: COPD type: unspecified COPD Qualified Code(s): J44.9 - Chronic obstructive pulmonary disease, unspecified (4) Atrial fibrillation Status: Chronic Qualifiers: Atrial fibrillation type: chronic Qualified Code(s): I48.2 - Chronic atrial fibrillation (5) CAD (coronary artery disease) Status: Chronic Qualifiers: Coronary Disease-Associated Artery/Lesion type: [place] artery [place] vs. transplanted heart: [place] heart Associated angina: angina presence unspecified Qualified Code(s): I25.10 - Atherosclerotic heart disease of [place] coronary artery without angina pectoris (6) Anemia Status: Chronic Qualifiers: Anemia type: unspecified type Qualified Code(s): D64.9 - Anemia, unspecified - Time Spent With Patient Total time spent is greater than 50% in coordination of care (as documented) at patient's floor/unit and/or counseling patient: 25 - 35 minutes - Subjective Interval history: .. She feels better. Her dyspnea subsided. Denies coughing and wheezing. She is able to walk on her own; week. Denies abdominal pain, nausea and vomiting. She made a lot of urine recentlytreated with IV diuretic. OBJECTIVE: .. Constitutional: See below. Skin: Free of rash and discoloration ENMT: Oral/pharyngeal mucosa is normal in appearance. Eyes: Sclera is white. There is no discharge from eyes. Respiratory: Normal breath sounds; no crackles or wheezes. CV: Heart is regular; no gallop or murmur. GI: Abdomen is soft and not tender. There is no palpable mass or visceromegaly. Neuro: There is no focal deficits. ASSESSMENT AND PLAN: .. Acute on chronic diastolic heart failure. We will switch her from IV to by mouth Lasix. I talked to her about management of chronic diastolic heart failure. Her echocardiogram from September 2017 showed ejection fraction of 60-65 %. Acute hypokalemia. Secondary to treatment with Lasix. We will give her supplemental potassium chloride. COPD. Stable. We will continue supplemental oxygen. She may have mild chronic respiratory failure with hypoxia. Atrial fibrillation. Rate controlled. Pharmacy is dosing her warfarin. Coronary artery disease. The treatment has been optimized. Anemia. Chronic. For outpatient management. NOTES: We will repeat CBC, BMP and magnesium in the morning. Tentative discharge is tomorrow. - Constitutional Vitals: Temp Pulse Resp BP Pulse Ox 97.9 F 80 15 144/74 96 01/26/18 23:29 01/26/18 23:29 01/26/18 23:29 01/26/18 23:29 01/26/18 23:29 General appearance: Present: cooperative, A&O X 3, morbidly obese, pleasant, no acute distress, answers questions appropriately Internal Medicine: Result - Labs CBC & Chem 7: 01/27/18 04:40 01/27/18 04:40 Labs: Short CBC 01/26/18 Range/Units 06:01 WBC 3.7 L (4.3-11.1) K/mcL Hgb 8.9 L (11.5-15.4) g/dL Hct 27.9 L (35.3-44.9) % Plt Count 102 L (140-400) K/mcL Neutrophils # 2.4 (1.6-8.9) K/mcL BMP 01/26/18 06:01 Sodium 143 Potassium 3.6 Chloride 105 Carbon Dioxide 34 H BUN 27 H Creatinine 1.03 Glucose 194 H Calcium 10.2 Liver Function 01/26/18 Range/Units 06:01 Total Bilirubin 1.4 H (0.3-1.0) mg/dL AST 15 (13-39) Units/L ALT 11 (7-52) Units/L Alkaline Phosphatase 70 (34-104) Units/L Albumin 4.0 (3.5-5.7) g/dL - ABG Interpretation ABG results: PT/INR, D-dimer PT 29.0 Seconds (9.4-12.1) H 01/26/18 06:01 - Impressions Impressions Pulmonary Perfusion Imaging 01/25/18 14:49 IMPRESSION: Low probability for pulmonary embolus. D/ / Kip Barrett MD / Kip Barrett MD Interpreting Provider: Kip Barrett MD Consult Discharge Plan - Plan Instructions: Heart Failure (DC), Atrial Fibrillation (DC), Hypothyroidism (DC) , Diabetes Mellitus Type 2 in Adults (DC), Chronic Obstructive Pulmonary Disease (DC), Chronic Hypertension (DC), Anemia (GEN) Referrals: Jakob Wilkes MD [Primary Care Provider] - (web request sent. If you do not hear from your PCP by morning, please call and make a hospital follow up 5-7 days out. Thank you!) Prescriptions: Furosemide [Lasix] 40 mg PO BID #60 tablet Potassium Chloride 20 meq PO BID #60 [id number].[email or web address]
[2018-01-27 04:56] LABS: Basophils % 0.2 %; Eosinophils # 0.1 K/mcL (0.0-0.6); Eosinophils % 2.6 %; Hemoglobin 8.6 g/dL (11.5-15.4); Immature Granulocytes % 0.7 % (0-4); Lymphocytes # 1.1 K/mcL (0.6-4.6); Mean Corpuscular HGB Conc 31.9 g/dL (31.6-35.5); Mean Corpuscular Hemoglobin 29.1 pg (28.0-33.3); Mean Corpuscular Volume 91.2 fL (83.0-100.0); Mean Platelet Volume 9.7 fL (9.4-12.4); Monocytes # 0.4 K/mcL (0.0-1.3); Monocytes % 7.8 %; Platelet Count 102 K/mcL (140-400); Red Blood Count 2.96 M/mcL (3.82-4.97); Red Cell Distribution Width 16.8 % (11.5-14.5); Segmented Neutrophils % 65.7 %
[2018-01-27 05:04] LABS: Prothrombin Time 33.1 Seconds (9.4-12.1)
[2018-01-27 05:17] LABS: Alanine Aminotransferase 10 Units/L (7-52); Albumin 3.9 g/dL (3.5-5.7); Albumin/Globulin Ratio 1.6 (1.1-2.2); Alkaline Phosphatase 65 Units/L (34-104); Aspartate Amino Transferase 15 Units/L (13-39); BUN/Creatinine Ratio 24 (6-26); Bilirubin,Total 1.3 mg/dL (0.3-1.0); Blood Urea Nitrogen 24 mg/dL (8-23); Calcium 9.7 mg/dL (8.6-10.3); Carbon Dioxide 32 mEq/L (23-29); Chloride 106 mEq/L (98-107); Globulin 2.4 g/dL (2.4-3.5); Glucose 156 mg/dL (70-105); Osmolality,Calculated 303 (280-300); Potassium 4.1 mEq/L (3.5-5.1); Sodium 143 mEq/L (136-145); Total Protein 6.3 g/dL (6.4-8.9); eGFR For African Americans > 60 (> 60); eGFR For Non-African Americans 53 (> 60)
[2018-01-27] MEDS ORDERED: Furosemide 40 MG TABLET PO SCH (08:00)
[2018-01-27] MEDS: Insulin LISPRO 300 UNITS/3 ML VIAL SQ SCH ×2 (09:41→11:56)
[2018-01-27] MEDS: Gabapentin 100 MG CAPSULE PO SCH ×2 (09:42→16:28)
[2018-01-27] MEDS: Cyanocobalamin (B-12) 1,000 MCG TABLET PO SCH (09:42)
[2018-01-27] MEDS: traMADol 50 MG TABLET PO PRN (09:44)
[2018-01-27] MEDS: Insulin DETEMIR 100 UNIT/ML X5UNITS SQ SCH (10:07)
[2018-01-27 11:09] VITALS: BP 115/63
--- NOTE | 2018-01-27 16:20 | Discharge Summary ---
- NOTES TO OUTPATIENT PROVIDER Notes to Outpatient Provider: The patient was admitted with acute on chronic diastolic heart failure. It was running with hypoxia. She got a couple doses of IV Lasix. Her breathing is back to normal; 2 L/m nasal cannula oxygen. She will be on mild fluid restriction of 1500 mL per day. She will be checking her weight every single day. She will call physician when gaining significantly with her weight. Orders not resulted at time of discharge: Pending orders 01/28/18 04:00 Complete Blood Count [HEME] AM 0400 Comprehensive Metabolic Panel AM 040 PT/INR [Prothrombin Time INR] [COAG] AM 04001/29/18 04:00 PT/INR [Prothrombin Time INR] [COAG] AM 04001/30/18 04:00 PT/INR [Prothrombin Time INR] [COAG] AM 040 Date of Encounter: 01/27/18 Time of Encounter: 16:18 - Discharge Diagnosis (1) Acute on chronic diastolic (congestive) heart failure Priority: Primary Status: Acute (2) COPD (chronic obstructive pulmonary disease) Priority: Secondary Status: Chronic Qualifiers: COPD type: unspecified COPD Qualified Code(s): J44.9 - Chronic obstructive pulmonary disease, unspecified (3) Atrial fibrillation Priority: Secondary Status: Chronic Qualifiers: Atrial fibrillation type: chronic Qualified Code(s): I48.2 - Chronic atrial fibrillation (4) CAD (coronary artery disease) Priority: Secondary Status: Chronic Qualifiers: Coronary Disease-Associated Artery/Lesion type: [place] artery [place] vs. transplanted heart: [place] heart Associated angina: angina presence unspecified Qualified Code(s): I25.10 - Atherosclerotic heart disease of [place] coronary artery without angina pectoris (5) Acute hypokalemia Priority: Secondary Status: Resolved (6) Anemia Priority: Secondary Status: Chronic Qualifiers: Anemia type: unspecified type Qualified Code(s): D64.9 - Anemia, unspecified Hospital course: Ms. Baird is a 77 year old female. The patient was admitted with acute on chronic diastolic heart failure. It was running with hypoxia. She got a couple doses of IV Lasix. Her breathing is back to normal; 2 L/m nasal cannula oxygen. She will be on mild fluid restriction of 1500 mL per day. She will be checking her weight every single day. She will call physician when gaining significantly with her weight. We also observed acute hypokalemia secondary to treatment with Lasix. It was corrected with oral potassium chloride supplements. Discharge discussed with: patient, family, nurse, case management - Time Spent with Patient Total time spent providing and/or coordinating discharge services: Greater than 30 minutes (40 minutes) - Discharge Medications Prescriptions: Furosemide [Lasix] 40 mg PO BID #60 tablet Potassium Chloride 20 meq PO BID #60 tab.er.prt Home Medications: Cyanocobalamin (Vitamin B-12) [Vitamin B12] 2,000 mcg PO DAILY 03/10/15 [History ] Insulin NPH Hum/Reg Insulin Hm [Novolin 70-30 100 Unit/ml Vial] 20 - 25 unit SQ BIDWM 03/10/15 [History] Losartan Potassium [Cozaar] 50 mg PO DAILY 03/10/15 [History] Pravastatin Sodium [Pravachol] 40 mg PO HS 03/10/15 [History] Warfarin [Coumadin] 4 mg PO DAILY 03/10/15 [History] Ferrous Sulfate 325 mg PO DAILY 01/04/17 [History] Oxygen 2 l NS CONT 01/04/17 [History] Allopurinol [Zyloprim 100 MG] 100 mg PO DAILY 01/25/18 [History] Carvedilol 12.5 mg PO BID 01/25/18 [History] Cinacalcet [Sensipar] 30 mg PO DAILY 01/25/18 [History] Docusate [Colace] 100 mg PO TID PRN 01/25/18 [History] Gabapentin [Neurontin] 100 mg PO TID 01/25/18 [History] Levothyroxine [Synthroid] 125 mcg PO 0630 01/25/18 [History] Furosemide [Lasix] 40 mg PO BID #60 tablet 01/27/18 [Rx] Potassium Chloride 20 meq PO BID #60 tab.er.prt 01/27/18 [Rx] Allergies/Adverse Reactions: 3 Allergy/AdvReac Type Severity Reaction Status Date / Time azithromycin [From Zithromax] Allergy Hives Verified 01/25/18 08:44 doxycycline Allergy Hives Verified 01/25/18 08:44 nitrofurantoin Allergy Hives Verified 01/25/18 08:44 [From Macrobid] Penicillins Allergy Hives Verified 01/25/18 08:44 simvastatin AdvReac Muscle Pain Verified 01/25/18 08:44 Date of admission: 01/25/18 13:36 Primary care physician: Jakob Wilkes MD Consults: 01/25/18 14:28 Consult to Occupational Therapy [CONS] Routine Comment: Evaluate, develop and implement POC Reason for Consult: Patient reports weakness in bilateral LEs and difficulty w/ ambulation d/t SOB/dyspnea r/t CHF. Uses walker. Please assess patient for ambulation strength, stability , safety, and possible home assistive/ rehabilitation needs for post-discharge planning. Does patient have active BEDREST order?: Yes Is patient medically & hemodynamically stable?: Yes Patient assessed for mobility or mobilized this visit?: No Consult to Human Factors Ergonomist [CONS] Routine Reason for SW Consult: Please assess patient for possible home needs for post -discharge planning. 01/25/18 14:30 Consult to Physical Therapy [CONS] Routine Comment: Evaluate, develop and implement POC Reason for Consult: Patient reports weakness in bilateral LEs and difficulty w/ ambulation d/t SOB/dyspnea r/t CHF. Uses walker. Please assess patient for ambulation strength, stability , safety, and possible home assistive/ rehabilitation needs for post-discharge planning. Does patient have active BEDREST order?: Yes Is patient medically & hemodynamically stable?: Yes Patient assessed for mobility or mobilized this visit?: No Discharging clinician: Romulo Ruvalcaba Anticipated date of discharge: 01/27/18 - Constitutional Vitals: Temp Pulse Resp BP Pulse Ox 98.0 F 68 18 115/63 92 01/27/18 11:00 01/27/18 11:00 01/27/18 11:00 01/27/18 11:00 01/27/18 11:00 General appearance: Present: cooperative, A&O X 3, morbidly obese, pleasant, no acute distress, answers questions appropriately - Respiratory Respiratory exam: Present: CTAB. Absent: accessory muscle use, rales, rhonchi, wheezes - Cardiovascular Cardiovascular exam: Present: RRR, +S1, +S2. Absent: diastolic murmur, gallop, rubs, systolic murmur - GI/Abdominal GI/Abdominal exam: Present: normal bowel sounds, soft, no peritoneal signs. Absent: distended, tenderness - Patient Status Disposition: Home, Self-Care Condition: Good Functional capacity at discharge: independent ambulation - Discharge Instructions Instructions: Heart Failure (DC), Atrial Fibrillation (DC), Hypothyroidism (DC) , Diabetes Mellitus Type 2 in Adults (DC), Chronic Obstructive Pulmonary Disease (DC), Chronic Hypertension (DC), Anemia (GEN) Follow Up With: Jakob Wilkes MD [Primary Care Provider] - (web request sent. If you do not hear from your PCP by Tu morning, please call and make a hospital follow up 5-7 days out. Thank you!) - Diet and Activity Activity: resume usual activities as tolerated - VTE Deep Vein Thrombosis/Pulmonary Embolism Present on Admission: No
[2018-01-27] MEDS ORDERED: *HR* Warfarin 2 MG TABLET PO ONE (18:00)
== END 2018-01-27 17:15 | disposition home or self-care (01) ==
LOC: EMEROO 08:29 → 2ANU 08:29 → SUATTDRO 13:36 → 2ANU 14:21
PROVIDERS: ADMIT Hospitalist; ATTEND Internal Medicine

== ENCOUNTER 2019-08-09 17:56 | Observation (INO) ==
[2019-08-09 19:33] LABS: Hematocrit 36.4 % (35.3-44.9); Hemoglobin 11.9 g/dL (11.5-15.4); Mean Corpuscular HGB Conc 32.7 g/dL (31.6-35.5); Mean Corpuscular Hemoglobin 30.7 pg (28.0-33.3); Mean Corpuscular Volume 93.8 fL (83.0-100.0); Mean Platelet Volume 10.1 fL (9.4-12.4); Platelet Count 119 K/mcL (140-400); Red Blood Count 3.88 M/mcL (3.82-4.97); Red Cell Distribution Width 13.9 % (11.5-14.5); White Blood Count 6.5 K/mcL (4.3-11.1)
[2019-08-09 19:41] LABS: Bilirubin,Urine Negative (Negative); Blood,Urine Negative (Negative); Clarity,Urine Clear (Clear); Color,Urine Yellow (Yellow); Glucose,Urine (UA) 100 mg/dL (Normal); Ketones,Urine Negative (Negative); Leukocyte Esterase,Urine Negative (Negative); Nitrite,Urine Negative (Negative); Protein,Urine Negative (Neg-Trace); Specific Gravity,Urine 1.013 (1.010-1.025); Urobilinogen,Urine Normal (Normal)
[2019-08-09 19:56] LABS: Alanine Aminotransferase 15 Units/L (7-52); Albumin 4.3 g/dL (3.5-5.7); Albumin/Globulin Ratio 1.3 (1.1-2.2); Alkaline Phosphatase 101 Units/L (34-104); Aspartate Amino Transferase 17 Units/L (13-39); BUN/Creatinine Ratio 41 (6-26); Bilirubin,Direct 0.4 mg/dL (0.0-0.2); Bilirubin,Total 1.4 mg/dL (0.3-1.0); Blood Urea Nitrogen 50 mg/dL (8-23); Calcium 11.2 mg/dL (8.6-10.3); Carbon Dioxide 26 mEq/L (23-29); Chloride 103 mEq/L (98-107); Globulin 3.2 g/dL (2.4-3.5); Glucose 246 mg/dL (70-105); Osmolality,Calculated 316 (280-300); Potassium 4.3 mEq/L (3.5-5.1); Sodium 142 mEq/L (136-145); Total Protein 7.5 g/dL (6.4-8.9); Troponin I < 0.03 ng/mL (< 0.04); eGFR For African Americans 52 (> 60); eGFR For Non-African Americans 43 (> 60)
[2019-08-09] MEDS ORDERED: Furosemide 40 MG/4 ML VIAL IVP ONE (20:23)
[2019-08-09 20:35] LABS: INR 1.5; Prothrombin Time 17.6 Seconds (9.4-12.1)
[2019-08-09] MEDS ORDERED: Naloxone 0.4 MG/ML INJ IVP PRN (22:52)
[2019-08-09] MEDS ORDERED: Ondansetron 4 MG/2 ML VIAL IVP PRN (22:52)
[2019-08-09] MEDS ORDERED: Dextrose Gel 15 GM/37.5 ML TUBE PO PRN ×2 (22:55)
[2019-08-09] MEDS ORDERED: *HR* Dextrose 50 % in Water (Syg) 50 ML SYRINGE IVP PRN (22:55)
[2019-08-09] MEDS ORDERED: D5% in Water 1,000 ML IVC PRN (22:55)
[2019-08-09] MEDS ORDERED: Acetaminophen 325 MG TABLET PO PRN (23:40)
[2019-08-10 00:03] LABS: Estimated Average Glucose 154 mg/dl
[2019-08-10] MEDS ORDERED: carvediloL 6.25 MG TABLET PO SCH (00:30)
[2019-08-10] MEDS ORDERED: *HR* Warfarin 4 MG TABLET PO ONE (00:30)
[2019-08-10 04:49] LABS: Basophils % 0.1 %; Eosinophils # 0.1 K/mcL (0.0-0.6); Eosinophils % 0.7 %; Hematocrit 33.3 % (35.3-44.9); Hemoglobin 10.8 g/dL (11.5-15.4); Immature Granulocytes % 0.3 % (0-4); Lymphocytes # 1.1 K/mcL (0.6-4.6); Lymphocytes % 16.5 %; Mean Corpuscular HGB Conc 32.4 g/dL (31.6-35.5); Mean Corpuscular Hemoglobin 30.7 pg (28.0-33.3); Mean Corpuscular Volume 94.6 fL (83.0-100.0); Mean Platelet Volume 9.6 fL (9.4-12.4); Monocytes # 0.7 K/mcL (0.0-1.3); Monocytes % 9.6 %; Platelet Count 103 K/mcL (140-400); Red Blood Count 3.52 M/mcL (3.82-4.97); Red Cell Distribution Width 13.8 % (11.5-14.5); Segmented Neutrophils % 72.8 %; White Blood Count 6.9 K/mcL (4.3-11.1)
[2019-08-10 04:55] LABS: Calcium 10.8 mg/dL (8.6-10.3); Magnesium 1.6 mg/dL (1.6-2.6); Potassium 4.1 mEq/L (3.5-5.1)
[2019-08-10] MEDS ORDERED: Acetaminophen 325 MG TABLET PO PRN (07:56)
[2019-08-10 08:06] LABS: INR 1.5; Prothrombin Time 17.2 Seconds (9.4-12.1)
[2019-08-10] MEDS ORDERED: Furosemide 40 MG/4 ML VIAL IVP SCH (09:00)
[2019-08-10] MEDS ORDERED: *HR* HYDROcodone/Acet 7.5/325 mg TABLET PO SCH (09:00)
[2019-08-10] MEDS: Furosemide 40 MG/4 ML VIAL IVP SCH ×2 (09:09→16:32)
[2019-08-10] MEDS: carvediloL 6.25 MG TABLET PO SCH ×2 (09:09→16:29)
[2019-08-10] MEDS: Gabapentin 100 MG CAPSULE PO SCH ×3 (09:09→20:29)
[2019-08-10] MEDS: Insulin LISPRO 300 UNITS/3 ML VIAL SQ SCH ×4 (09:13→20:32)
[2019-08-10] MEDS: Insulin DETEMIR 100 UNIT/ML X5UNITS SQ SCH (09:19)
[2019-08-10] MEDS ORDERED: Warfarin perPT PO PRN (18:00)
[2019-08-10] MEDS ORDERED: *HR* Warfarin 2 MG TABLET PO SCH (18:00)
[2019-08-10] MEDS ORDERED: *HR* Warfarin 2 MG TABLET PO ONE (18:00)
[2019-08-11 07:08] LABS: Basophils % 0.3 %; Eosinophils # 0.1 K/mcL (0.0-0.6); Hematocrit 35.8 % (35.3-44.9); Hemoglobin 11.6 g/dL (11.5-15.4); Immature Granulocytes % 0.5 % (0-4); Lymphocytes # 1.7 K/mcL (0.6-4.6); Lymphocytes % 19.1 %; Mean Corpuscular HGB Conc 32.4 g/dL (31.6-35.5); Mean Corpuscular Hemoglobin 30.4 pg (28.0-33.3); Mean Platelet Volume 9.8 fL (9.4-12.4); Monocytes # 0.8 K/mcL (0.0-1.3); Neutrophils # 6.2 K/mcL (1.6-8.9); Platelet Count 122 K/mcL (140-400); Red Blood Count 3.81 M/mcL (3.82-4.97); Segmented Neutrophils % 70.1 %; White Blood Count 8.8 K/mcL (4.3-11.1)
[2019-08-11 07:09] LABS: INR 1.5; Prothrombin Time 17.2 Seconds (9.4-12.1)
[2019-08-11 07:30] LABS: Calcium 10.9 mg/dL (8.6-10.3); Potassium 3.8 mEq/L (3.5-5.1)
[2019-08-11] MEDS ORDERED: carvediloL 6.25 MG TABLET PO SCH (08:00)
[2019-08-11] MEDS: Insulin DETEMIR 100 UNIT/ML X5UNITS SQ SCH (08:11)
[2019-08-11] MEDS: Gabapentin 100 MG CAPSULE PO SCH ×3 (08:11→21:23)
[2019-08-11] MEDS: Insulin LISPRO 300 UNITS/3 ML VIAL SQ SCH ×4 (08:12→21:25)
[2019-08-11] MEDS: Furosemide 40 MG/4 ML VIAL IVP SCH (08:19)
[2019-08-11] MEDS: *HR* HYDROcodone/Acet 7.5/325 mg TABLET PO PRN ×2 (11:49→21:23)
[2019-08-11] MEDS: Furosemide 40 MG TABLET PO SCH (16:39)
[2019-08-11] MEDS: carvediloL 6.25 MG TABLET PO SCH (16:44)
[2019-08-11] MEDS ORDERED: *HR* Warfarin 4 MG TABLET PO SCH (18:00)
[2019-08-11] MEDS ORDERED: *HR* Warfarin 4 MG TABLET PO ONE (18:00)
[2019-08-12] MEDS: Insulin LISPRO 300 UNITS/3 ML VIAL SQ SCH ×4 (08:08→22:23)
[2019-08-12] MEDS: Gabapentin 100 MG CAPSULE PO SCH ×3 (08:26→22:22)
[2019-08-12] MEDS: carvediloL 6.25 MG TABLET PO SCH ×2 (08:26→18:27)
[2019-08-12] MEDS: Furosemide 40 MG TABLET PO SCH (08:27)
[2019-08-12] MEDS: Insulin DETEMIR 100 UNIT/ML X5UNITS SQ SCH (08:27)
[2019-08-12 08:28] LABS: Basophils % 0.3 %; Eosinophils # 0.1 K/mcL (0.0-0.6); Hematocrit 31.7 % (35.3-44.9); Hemoglobin 10.7 g/dL (11.5-15.4); Immature Granulocytes % 0.6 % (0-4); Lymphocytes # 1.6 K/mcL (0.6-4.6); Lymphocytes % 24.8 %; Mean Corpuscular HGB Conc 33.8 g/dL (31.6-35.5); Mean Corpuscular Hemoglobin 30.8 pg (28.0-33.3); Mean Corpuscular Volume 91.4 fL (83.0-100.0); Mean Platelet Volume 8.9 fL (9.4-12.4); Monocytes # 0.7 K/mcL (0.0-1.3); Monocytes % 10.4 %; Neutrophils # 4.1 K/mcL (1.6-8.9); Platelet Count 103 K/mcL (140-400); Red Blood Count 3.47 M/mcL (3.82-4.97); Red Cell Distribution Width 13.8 % (11.5-14.5); Segmented Neutrophils % 61.9 %; White Blood Count 6.6 K/mcL (4.3-11.1)
[2019-08-12 08:35] LABS: INR 1.6; Prothrombin Time 17.8 Seconds (9.4-12.1)
[2019-08-12 08:48] LABS: Calcium 10.3 mg/dL (8.6-10.3); Potassium 3.6 mEq/L (3.5-5.1)
[2019-08-12 15:06] LABS: Calcium 10.1 mg/dL (8.6-10.3); Potassium 3.8 mEq/L (3.5-5.1)
[2019-08-12] MEDS ORDERED: *HR* Warfarin 4 MG TABLET PO ONE (18:00)
[2019-08-12] MEDS: *HR* HYDROcodone/Acet 7.5/325 mg TABLET PO PRN (22:22)
[2019-08-13 04:42] LABS: Basophils % 0.4 %; Eosinophils # 0.1 K/mcL (0.0-0.6); Eosinophils % 1.2 %; Hematocrit 29.3 % (35.3-44.9); Hemoglobin 9.7 g/dL (11.5-15.4); Immature Granulocytes % 0.7 % (0-4); Lymphocytes # 1.2 K/mcL (0.6-4.6); Lymphocytes % 20.4 %; Mean Corpuscular HGB Conc 33.1 g/dL (31.6-35.5); Mean Corpuscular Hemoglobin 30.4 pg (28.0-33.3); Mean Corpuscular Volume 91.8 fL (83.0-100.0); Mean Platelet Volume 10.5 fL (9.4-12.4); Monocytes # 0.7 K/mcL (0.0-1.3); Neutrophils # 3.7 K/mcL (1.6-8.9); Platelet Count 111 K/mcL (140-400); Red Blood Count 3.19 M/mcL (3.82-4.97); Red Cell Distribution Width 13.4 % (11.5-14.5); Segmented Neutrophils % 65.3 %; White Blood Count 5.7 K/mcL (4.3-11.1)
[2019-08-13 04:50] LABS: INR 1.5; Prothrombin Time 17.3 Seconds (9.4-12.1)
[2019-08-13 05:05] LABS: Calcium 10.2 mg/dL (8.6-10.3); Potassium 4.2 mEq/L (3.5-5.1)
[2019-08-13] MEDS: Insulin LISPRO 300 UNITS/3 ML VIAL SQ SCH (07:37)
[2019-08-13 08:31] VITALS: BP 149/84
[2019-08-13] MEDS: carvediloL 6.25 MG TABLET PO SCH (08:33)
[2019-08-13] MEDS: Gabapentin 100 MG CAPSULE PO SCH (08:33)
[2019-08-13] MEDS: Insulin DETEMIR 100 UNIT/ML X5UNITS SQ SCH (08:34)
[2019-08-13] MEDS: *HR* HYDROcodone/Acet 7.5/325 mg TABLET PO PRN (08:36)
== END 2019-08-13 10:39 | disposition home or self-care (01) ==
LOC: 2ANU 17:56 → EMEROOARM 17:56 → SUATTDRO 21:23 → 2ANU 22:48
PROVIDERS: ADMIT Internal Medicine; ATTEND Internal Medicine

== ENCOUNTER 2019-08-24 13:42 | Inpatient (IN) ==
[2019-08-24 14:55] LABS: Hematocrit 29.8 % (35.3-44.9); Hemoglobin 9.4 g/dL (11.5-15.4); Mean Corpuscular HGB Conc 31.5 g/dL (31.6-35.5); Mean Corpuscular Hemoglobin 29.7 pg (28.0-33.3); Mean Corpuscular Volume 94.3 fL (83.0-100.0); Mean Platelet Volume 9.2 fL (9.4-12.4); Platelet Count 167 K/mcL (140-400); Red Blood Count 3.16 M/mcL (3.82-4.97); Red Cell Distribution Width 13.6 % (11.5-14.5); White Blood Count 9.1 K/mcL (4.3-11.1)
[2019-08-24 14:57] LABS: Prothrombin Time 33.9 Seconds (9.4-12.1)
[2019-08-24] MEDS ORDERED: 0.9 % Sodium Chloride 1,000 ML IVC ONE (15:07)
[2019-08-24 15:20] LABS: Calcium 10.3 mg/dL (8.6-10.3); Potassium 4.3 mEq/L (3.5-5.1)
[2019-08-24 16:21] LABS: Albumin 3.8 g/dL (3.5-5.7); Albumin/Globulin Ratio 1.3 (1.1-2.2); Bilirubin,Direct 0.3 mg/dL (0.0-0.2); Bilirubin,Indirect 0.5 mg/dL (0.0-1.0); Bilirubin,Total 0.8 mg/dL (0.3-1.0); Globulin 2.9 g/dL (2.4-3.5); Total Protein 6.7 g/dL (6.4-8.9)
[2019-08-24 17:07] LABS: Bilirubin,Urine Negative (Negative); Blood,Urine Large (Negative); Clarity,Urine Turbid (Clear); Color,Urine Yellow (Yellow); Glucose,Urine (UA) 100 mg/dL (Normal); Ketones,Urine Negative (Negative); Leukocyte Esterase,Urine Large (Negative); Nitrite,Urine Positive (Negative); Protein,Urine 30 mg/dL (Neg-Trace); Specific Gravity,Urine 1.016 (1.010-1.025); Urobilinogen,Urine Normal (Normal)
[2019-08-24 17:10] LABS: Bacteria,Urine Many per hpf (None-Few); Hyaline Casts,Urine None Seen per lpf (None-Few); RBC,Urine 15-30 per hpf (0-3); Squamous Epithelial Cell,Urine Moderate per lpf (None-Few); WBC,Urine TNTC per hpf (0-3)
[2019-08-24 17:23] LABS: Troponin I 0.07 ng/mL (< 0.04)
[2019-08-24] MEDS ORDERED: cefTRIAXone 2,000 MG in 0.9 % Sodium Chloride Mini Bag 100 ML IVPB ONE (17:57)
[2019-08-24] MEDS ORDERED: Ondansetron 4 MG/2 ML VIAL IVP ONE (19:36)
[2019-08-24] MEDS ORDERED: Naloxone 0.4 MG/ML INJ IVP PRN (22:07)
[2019-08-24] MEDS ORDERED: Ondansetron 4 MG/2 ML VIAL IVP PRN (22:07)
[2019-08-24] MEDS ORDERED: *HR* Dextrose 50 % in Water (Syg) 50 ML SYRINGE IVP PRN (22:19)
[2019-08-24] MEDS ORDERED: Dextrose Gel 15 GM/37.5 ML TUBE PO PRN ×2 (22:19)
[2019-08-24] MEDS ORDERED: D5% in Water 1,000 ML IVC PRN (22:19)
[2019-08-24] MEDS ORDERED: cefTRIAXone 2,000 MG in Water for inj. (sterile) 20 ML IVP SCH (23:00)
[2019-08-25 04:50] LABS: Basophils % 0.1 %; Hematocrit 27.9 % (35.3-44.9); Hemoglobin 8.6 g/dL (11.5-15.4); Immature Granulocytes % 0.8 % (0-4); Lymphocytes # 0.7 K/mcL (0.6-4.6); Lymphocytes % 8.5 %; Mean Corpuscular HGB Conc 30.8 g/dL (31.6-35.5); Mean Corpuscular Hemoglobin 29.5 pg (28.0-33.3); Mean Corpuscular Volume 95.5 fL (83.0-100.0); Monocytes # 0.7 K/mcL (0.0-1.3); Monocytes % 8.9 %; Neutrophils # 6.2 K/mcL (1.6-8.9); Platelet Count 152 K/mcL (140-400); Red Blood Count 2.92 M/mcL (3.82-4.97); Red Cell Distribution Width 13.7 % (11.5-14.5); Segmented Neutrophils % 81.7 %; White Blood Count 7.6 K/mcL (4.3-11.1)
[2019-08-25 05:01] LABS: Calcium 9.9 mg/dL (8.6-10.3); Magnesium 1.8 mg/dL (1.6-2.6); Potassium 4.6 mEq/L (3.5-5.1)
[2019-08-25] MEDS: carvediloL 6.25 MG TABLET PO SCH ×2 (08:20→17:11)
[2019-08-25] MEDS: FLUoxetine 20 MG CAPSULE PO SCH (08:20)
[2019-08-25] MEDS: Gabapentin 100 MG CAPSULE PO SCH ×3 (08:20→21:05)
[2019-08-25] MEDS: Insulin LISPRO 300 UNITS/3 ML VIAL SQ SCH ×4 (08:31→21:00)
[2019-08-25] MEDS ORDERED: NOVOLIN SQ SCH (09:00)
[2019-08-25] MEDS ORDERED: *HR* Warfarin 4 MG TABLET PO SCH ×2 (09:00)
[2019-08-25] MEDS ORDERED: 0.9 % Sodium Chloride 500 ML IVC SCH (10:45)
[2019-08-25 11:47] LABS: Acinetobacter baumannii by PCR Not Detected (Not Detect); Candida albicans by PCR Not Detected (Not Detect); Candida glabrata by PCR Not Detected (Not Detect); Candida krusei by PCR Not Detected (Not Detect); Candida parapsilosis by PCR Not Detected (Not Detect); Candida tropicalis by PCR Not Detected (Not Detect); Enterobacter cloacae Cmplx PCR Not Detected (Not Detect); Enterococcus by PCR Not Detected (Not Detect); Escherichia coli by PCR DETECTED (Not Detect); Klebsiella oxytoca by PCR Not Detected (Not Detect); Klebsiella pneumoniae by PCR Not Detected (Not Detect); Proteus by PCR Not Detected (Not Detect); Pseudomonas aeruginosa by PCR Not Detected (Not Detect); Serratia marcescens by PCR Not Detected (Not Detect); Staphylococcus aureus by PCR Not Detected (Not Detect); Staphylococcus by PCR Not Detected (Not Detect); Streptococcus agalactiae(B)PCR Not Detected (Not Detect); Streptococcus by PCR Not Detected (Not Detect); Streptococcus pneumoniae PCR Not Detected (Not Detect); Streptococcus pyogenes (A) PCR Not Detected (Not Detect); blaKPC Carbapenem-Resist Gene Not Detected (Not Detect)
[2019-08-25 14:18] LABS: INR 4.1
[2019-08-25 14:27] LABS: Prothrombin Time 46.4 Seconds (9.4-12.1)
[2019-08-25] MEDS: cefTRIAXone 2,000 MG in Water for inj. (sterile) 20 ML IVP SCH (17:11)
[2019-08-25] MEDS: *HR* HYDROcodone/Acet 7.5/325 mg TABLET PO PRN (17:21)
[2019-08-25] MEDS ORDERED: Warfarin perPT PO PRN (18:00)
[2019-08-25] MEDS: Ascorbic Acid 500 MG TABLET PO SCH (21:05)
[2019-08-25] MEDS ORDERED: Famotidine 20 MG TABLET PO SCH (22:00)
[2019-08-26 04:47] LABS: Basophils % 0.3 %; Eosinophils # 0.1 K/mcL (0.0-0.6); Eosinophils % 0.8 %; Hematocrit 26.9 % (35.3-44.9); Hemoglobin 8.2 g/dL (11.5-15.4); Immature Granulocytes % 0.8 % (0-4); Lymphocytes # 0.9 K/mcL (0.6-4.6); Lymphocytes % 14.4 %; Mean Corpuscular HGB Conc 30.5 g/dL (31.6-35.5); Mean Corpuscular Hemoglobin 29.6 pg (28.0-33.3); Mean Corpuscular Volume 97.1 fL (83.0-100.0); Mean Platelet Volume 10.2 fL (9.4-12.4); Monocytes # 0.7 K/mcL (0.0-1.3); Monocytes % 11.9 %; Neutrophils # 4.2 K/mcL (1.6-8.9); Platelet Count 146 K/mcL (140-400); Red Blood Count 2.77 M/mcL (3.82-4.97); Red Cell Distribution Width 13.7 % (11.5-14.5); Segmented Neutrophils % 71.8 %; White Blood Count 5.9 K/mcL (4.3-11.1)
[2019-08-26 04:50] LABS: INR 3.7; Prothrombin Time 41.9 Seconds (9.4-12.1)
[2019-08-26 04:58] LABS: Albumin 3.1 g/dL (3.5-5.7); Albumin/Globulin Ratio 1.1 (1.1-2.2); Bilirubin,Total 0.4 mg/dL (0.3-1.0); Calcium 9.9 mg/dL (8.6-10.3); Globulin 2.9 g/dL (2.4-3.5); Potassium 4.9 mEq/L (3.5-5.1)
[2019-08-26] MEDS: carvediloL 6.25 MG TABLET PO SCH ×2 (07:46→17:08)
[2019-08-26] MEDS: FLUoxetine 20 MG CAPSULE PO SCH (07:46)
[2019-08-26] MEDS: Gabapentin 100 MG CAPSULE PO SCH ×3 (07:46→21:48)
[2019-08-26] MEDS: Insulin LISPRO 300 UNITS/3 ML VIAL SQ SCH ×4 (07:47→21:47)
[2019-08-26] MEDS: cefTRIAXone 2,000 MG in Water for inj. (sterile) 20 ML IVP SCH (17:08)
[2019-08-26] MEDS: *HR* HYDROcodone/Acet 7.5/325 mg TABLET PO PRN ×2 (17:10→21:48)
[2019-08-26] MEDS: Ascorbic Acid 500 MG TABLET PO SCH (21:48)
[2019-08-26] MEDS: Famotidine 20 MG TABLET PO SCH (22:04)
[2019-08-27 02:01] LABS: Basophils % 0.4 %; Eosinophils # 0.1 K/mcL (0.0-0.6); Eosinophils % 2.1 %; Hematocrit 26.2 % (35.3-44.9); Hemoglobin 8.2 g/dL (11.5-15.4); Immature Granulocytes % 1.3 % (0-4); Lymphocytes % 20.6 %; Mean Corpuscular HGB Conc 31.3 g/dL (31.6-35.5); Mean Corpuscular Hemoglobin 30.3 pg (28.0-33.3); Mean Corpuscular Volume 96.7 fL (83.0-100.0); Mean Platelet Volume 10.3 fL (9.4-12.4); Monocytes # 0.6 K/mcL (0.0-1.3); Monocytes % 13.1 %; Platelet Count 143 K/mcL (140-400); Red Blood Count 2.71 M/mcL (3.82-4.97); Red Cell Distribution Width 13.7 % (11.5-14.5); Segmented Neutrophils % 62.5 %; White Blood Count 4.8 K/mcL (4.3-11.1)
[2019-08-27 02:21] LABS: Calcium 9.9 mg/dL (8.6-10.3); Potassium 5.1 mEq/L (3.5-5.1)
[2019-08-27 08:59] LABS: INR 2.9
[2019-08-27] MEDS: Gabapentin 100 MG CAPSULE PO SCH ×3 (10:08→21:27)
[2019-08-27] MEDS: FLUoxetine 20 MG CAPSULE PO SCH (10:08)
[2019-08-27] MEDS: Insulin LISPRO 300 UNITS/3 ML VIAL SQ SCH ×4 (10:09→21:26)
[2019-08-27] MEDS: carvediloL 6.25 MG TABLET PO SCH ×2 (10:09→17:20)
[2019-08-27] MEDS: cefTRIAXone 2,000 MG in Water for inj. (sterile) 20 ML IVP SCH (17:20)
[2019-08-27] MEDS ORDERED: *HR* Warfarin 2 MG TABLET PO ONE (18:00)
[2019-08-27] MEDS: *HR* HYDROcodone/Acet 7.5/325 mg TABLET PO PRN (21:26)
[2019-08-27] MEDS: Ascorbic Acid 500 MG TABLET PO SCH (21:27)
[2019-08-27] MEDS: Famotidine 20 MG TABLET PO SCH (21:28)
[2019-08-28 02:59] LABS: Basophils % 0.2 %; Eosinophils # 0.1 K/mcL (0.0-0.6); Eosinophils % 2.3 %; Hematocrit 26.9 % (35.3-44.9); Immature Granulocytes % 1.6 % (0-4); Lymphocytes # 0.9 K/mcL (0.6-4.6); Lymphocytes % 21.4 %; Mean Corpuscular HGB Conc 29.7 g/dL (31.6-35.5); Mean Corpuscular Hemoglobin 29.4 pg (28.0-33.3); Mean Corpuscular Volume 98.9 fL (83.0-100.0); Mean Platelet Volume 10.6 fL (9.4-12.4); Monocytes # 0.5 K/mcL (0.0-1.3); Monocytes % 10.5 %; Neutrophils # 2.8 K/mcL (1.6-8.9); Platelet Count 157 K/mcL (140-400); Red Blood Count 2.72 M/mcL (3.82-4.97); Red Cell Distribution Width 13.6 % (11.5-14.5); White Blood Count 4.4 K/mcL (4.3-11.1)
[2019-08-28 03:07] LABS: INR 2.3; Prothrombin Time 26.4 Seconds (9.4-12.1)
[2019-08-28 03:17] LABS: Potassium 5.5 mEq/L (3.5-5.1)
[2019-08-28] MEDS ORDERED: Furosemide 40 MG TABLET PO SCH (07:30)
[2019-08-28] MEDS: Insulin LISPRO 300 UNITS/3 ML VIAL SQ SCH ×4 (08:49→20:23)
[2019-08-28] MEDS: FLUoxetine 20 MG CAPSULE PO SCH (08:49)
[2019-08-28] MEDS: carvediloL 6.25 MG TABLET PO SCH ×2 (08:49→16:43)
[2019-08-28] MEDS: Gabapentin 100 MG CAPSULE PO SCH ×3 (08:49→20:23)
[2019-08-28] MEDS: cefTRIAXone 2,000 MG in Water for inj. (sterile) 20 ML IVP SCH (16:43)
[2019-08-28] MEDS ORDERED: *HR* Warfarin 4 MG TABLET PO ONE (18:00)
[2019-08-28] MEDS: *HR* HYDROcodone/Acet 7.5/325 mg TABLET PO PRN (20:23)
[2019-08-28] MEDS: Ascorbic Acid 500 MG TABLET PO SCH (20:23)
[2019-08-28] MEDS: Famotidine 20 MG TABLET PO SCH (21:08)
[2019-08-29 01:33] LABS: Basophils % 0.2 %; Eosinophils # 0.1 K/mcL (0.0-0.6); Eosinophils % 1.8 %; Hematocrit 25.9 % (35.3-44.9); Hemoglobin 8.3 g/dL (11.5-15.4); INR 1.9; Immature Granulocytes % 2.6 % (0-4); Lymphocytes # 1.1 K/mcL (0.6-4.6); Mean Corpuscular Volume 93.5 fL (83.0-100.0); Monocytes # 0.4 K/mcL (0.0-1.3); Monocytes % 8.7 %; Neutrophils # 3.3 K/mcL (1.6-8.9); Platelet Count 166 K/mcL (140-400); Prothrombin Time 21.7 Seconds (9.4-12.1); Red Blood Count 2.77 M/mcL (3.82-4.97); Red Cell Distribution Width 13.5 % (11.5-14.5); Segmented Neutrophils % 65.7 %; White Blood Count 5.1 K/mcL (4.3-11.1)
[2019-08-29 01:51] LABS: Potassium 4.7 mEq/L (3.5-5.1)
[2019-08-29 06:54] VITALS: BP 129/73
[2019-08-29] MEDS: carvediloL 6.25 MG TABLET PO SCH (08:00)
[2019-08-29] MEDS: FLUoxetine 20 MG CAPSULE PO SCH (08:01)
[2019-08-29] MEDS: Insulin LISPRO 300 UNITS/3 ML VIAL SQ SCH (08:02)
[2019-08-29] MEDS: Gabapentin 100 MG CAPSULE PO SCH (08:02)
[2019-08-29] MEDS ORDERED: *HR* Warfarin 2 MG TABLET PO ONE (18:00)
== END 2019-08-29 11:30 | disposition home or self-care (01) | DRG 872 ==
LOC: 3BNU 13:42 → EMEROOARM 13:42 → 3BNU 19:48
PROVIDERS: ADMIT Student in an Organized Health Care Education/Training Program; ATTEND Student in an Organized Health Care Education/Training Program

== ENCOUNTER 2020-11-13 16:14 | Inpatient (IN) ==
[2020-11-13 16:51] LABS: Basophils % 0.7 %; Eosinophils # 0.1 K/mcL (0.0-0.6); Eosinophils % 3.1 %; Hematocrit 32.9 % (35.3-44.9); Hemoglobin 9.8 g/dL (11.5-15.4); Immature Granulocytes % 0.7 % (0-4); Immature Platelets 1.8 % (1.1-6.1); Lymphocytes # 0.7 K/mcL (0.6-4.6); Lymphocytes % 17.4 %; Mean Corpuscular HGB Conc 29.8 g/dL (31.6-35.5); Mean Corpuscular Hemoglobin 30.3 pg (28.0-33.3); Mean Corpuscular Volume 101.9 fL (83.0-100.0); Mean Platelet Volume 10.3 fL (9.4-12.4); Monocytes # 0.4 K/mcL (0.0-1.3); Monocytes % 10.2 %; Neutrophils # 2.8 K/mcL (1.6-8.9); Red Blood Count 3.23 M/mcL (3.82-4.97); Red Cell Distribution Width 14.5 % (11.5-14.5); Segmented Neutrophils % 67.9 %; White Blood Count 4.1 K/mcL (4.3-11.1)
[2020-11-13 16:52] LABS: Platelet Count 91 K/mcL (140-400)
[2020-11-13 17:02] LABS: INR 2.7; Prothrombin Time 30.8 Seconds (9.4-12.1)
[2020-11-13 17:04] LABS: Activated Partial Thrombo Time 42.2 Seconds (26.0-36.0)
[2020-11-13 17:27] LABS: Troponin I 0.05 ng/mL (< 0.04)
[2020-11-13 17:41] LABS: Thyroid Stimulating Hormone 0.612 mcIU/mL (0.340-5.600)
[2020-11-13 18:51] LABS: Alanine Aminotransferase 23 Units/L (7-52); Albumin 4.2 g/dL (3.5-5.7); Albumin/Globulin Ratio 1.5 (1.1-2.2); Alkaline Phosphatase 86 Units/L (34-104); Aspartate Amino Transferase 22 Units/L (13-39); BUN/Creatinine Ratio 18 (6-26); Bilirubin,Direct 0.2 mg/dL (0.0-0.2); Bilirubin,Indirect 0.4 mg/dL (0.0-1.0); Bilirubin,Total 0.6 mg/dL (0.3-1.0); Blood Urea Nitrogen 76 mg/dL (8-23); Calcium 10.3 mg/dL (8.6-10.3); Carbon Dioxide 22 mEq/L (23-29); Chloride 106 mEq/L (98-107); Ethanol < 10 mg/dL (Less than 10); Globulin 2.8 g/dL (2.4-3.5); Glucose 172 mg/dL (70-105); Osmolality,Calculated 307 (280-300); Potassium 6.8 mEq/L (3.5-5.1); Sodium 135 mEq/L (136-145); eGFR For African Americans 12 (> 60); eGFR For Non-African Americans 10 (> 60)
[2020-11-13] MEDS ORDERED: Albuterol 2.5 MG/3 ML NEBULIZER IH ONE (18:51)
[2020-11-13] MEDS ORDERED: Calcium Gluconate 1gm/50mL 1 GM/50 ML BAG IVPB PRN (18:51)
[2020-11-13] MEDS ORDERED: 0.9 % Sodium Chloride 1,000 ML IVC ONE (18:52)
[2020-11-13] MEDS ORDERED: Insulin Human Regular 10 UNIT in 0.9 % Sodium Chloride 10 ML IV ONE (19:03)
[2020-11-13] MEDS ORDERED: *HR* Dextrose 50 % in Water (Vial) 50 ML VIAL IVP ONE (19:04)
[2020-11-13] MEDS ORDERED: SODIUM ZIRCONIUM CYCLOSILICATE 5 GM POWD.PACK PO ONE (20:15)
[2020-11-13 21:37] LABS: Adenovirus Not Detected (Not Detect); Coronavirus 229E Not Detected (Not Detect); Coronavirus HKU1 Not Detected (Not Detect); Coronavirus NL63 Not Detected (Not Detect); Coronavirus OC43 Not Detected (Not Detect); Human Metapneumovirus Not Detected (Not Detect); Human Rhinovirus/Enterovirus Not Detected (Not Detect); Influenza A Subtype 2009 H1 Not Detected (Not Detect); Influenza B Not Detected (Not Detect); Parainfluenza Virus 1 Not Detected (Not Detect); Parainfluenza Virus 2 Not Detected (Not Detect); Parainfluenza Virus 3 Not Detected (Not Detect); Parainfluenza Virus 4 Not Detected (Not Detect); Respiratory Syncytial Virus Not Detected (Not Detect); SARS-CoV-2 Not Detected (Not Detect)
[2020-11-13 21:38] LABS: Bordetella Pertussis Not Detected (Not Detect); Chlamydophila pneumoniae Not Detected (Not Detect); Mycoplasma pneumoniae Not Detected (Not Detect)
[2020-11-13] MEDS ORDERED: Naloxone 0.4 MG/ML INJ IVP PRN (21:53)
[2020-11-13] MEDS ORDERED: Acetaminophen 325 MG TABLET PO PRN (21:53)
[2020-11-13] MEDS ORDERED: Ondansetron 4 MG/2 ML VIAL IVP PRN (21:53)
[2020-11-13] MEDS ORDERED: *HR* Dextrose 50 % in Water (Vial) 50 ML VIAL IVP PRN (21:56)
[2020-11-13] MEDS ORDERED: Dextrose Gel 15 GM/37.5 ML TUBE PO PRN ×2 (21:56)
[2020-11-13] MEDS ORDERED: D5% in Water 1,000 ML IVC PRN (21:56)
[2020-11-13] MEDS: Insulin LISPRO 300 UNITS/3 ML VIAL SUBQ SCH (22:45)
[2020-11-13] MEDS: Sodium Bicarbonate 75 MEQ in 0.45 % Sodium Chloride 1,000 ML IVC SCH (22:55)
[2020-11-13 23:08] LABS: Calcium 10.4 mg/dL (8.6-10.3); Potassium 5.7 mEq/L (3.5-5.1); Uric Acid 8.9 mg/dL (2.3-7.6)
[2020-11-14 03:46] LABS: Hemoglobin 9.5 g/dL (11.5-15.4); Mean Corpuscular Volume 100.6 fL (83.0-100.0); Red Cell Distribution Width 14.5 % (11.5-14.5)
[2020-11-14 03:48] LABS: Basophils % 0.9 %; Eosinophils # 0.1 K/mcL (0.0-0.6); Eosinophils % 2.9 %; Hematocrit 31.9 % (35.3-44.9); Immature Granulocytes % 0.4 % (0-4); Immature Platelets 1.1 % (1.1-6.1); Lymphocytes # 0.8 K/mcL (0.6-4.6); Lymphocytes % 16.8 %; Mean Corpuscular HGB Conc 29.8 g/dL (31.6-35.5); Mean Platelet Volume 10.2 fL (9.4-12.4); Monocytes # 0.5 K/mcL (0.0-1.3); Monocytes % 10.6 %; Neutrophils # 3.1 K/mcL (1.6-8.9); Red Blood Count 3.17 M/mcL (3.82-4.97); Segmented Neutrophils % 68.4 %; White Blood Count 4.5 K/mcL (4.3-11.1)
[2020-11-14 03:54] LABS: Platelet Count 88 K/mcL (140-400)
[2020-11-14 03:55] LABS: Prothrombin Time 33.9 Seconds (9.4-12.1)
[2020-11-14 04:05] LABS: Calcium 10.3 mg/dL (8.6-10.3); Phosphorous 3.9 mg/dL (2.7-4.5)
[2020-11-14 05:00] LABS: Protein/Creatinine Ratio,Urine 0.23 mg/mg (0.00-0.20)
[2020-11-14 05:14] LABS: Bacteria,Urine Few per hpf (None-Few); Bilirubin,Urine Negative (Negative); Blood,Urine Trace (Negative); Clarity,Urine Clear (Clear); Color,Urine Light-Yellow (Yellow); Glucose,Urine (UA) Normal (Normal); Ketones,Urine Negative (Negative); Leukocyte Esterase,Urine Small (Negative); Mucus,Urine Few per lpf (None-Few); Nitrite,Urine Negative (Negative); PH,Urine 5.5 pH Units (5.0-8.0); Protein,Urine Negative (Neg-Trace); Specific Gravity,Urine 1.011 (1.010-1.025); Squamous Epithelial Cell,Urine Few per hpf (None-Few); Urobilinogen,Urine Normal (Normal)
[2020-11-14 05:21] LABS: Amphetamine Screen,Urine Negative ng/mL (Cutoff=1000); Barbiturate Screen,Urine Negative ng/mL (Cutoff=200); Benzodiazepines Screen,Urine Negative ng/mL (Cutoff=200); Cannabinoid Screen,Urine Negative ng/mL (Cutoff = 50); Cocaine Screen,Urine Negative ng/mL (Cutoff= 300); Opiate Screen,Urine Positive ng/mL (Cutoff=300); Phencyclidine Screen,Urine Negative ng/mL (Cutoff=25)
[2020-11-14] MEDS: Insulin LISPRO 300 UNITS/3 ML VIAL SUBQ SCH ×4 (07:57→23:07)
[2020-11-14] MEDS ORDERED: *HR* Dextrose 50 % in Water (Vial) 50 ML VIAL IVP ONE ×2 (07:59→12:46)
[2020-11-14] MEDS ORDERED: Insulin Human Regular 10 UNIT in 0.9 % Sodium Chloride 10 ML IV ONE ×2 (07:59→12:46)
[2020-11-14 15:26] LABS: INR 3.2; Prothrombin Time 35.9 Seconds (9.4-12.1)
[2020-11-14] MEDS: Sodium Bicarbonate 75 MEQ in 0.45 % Sodium Chloride 1,000 ML IVC SCH (15:51)
[2020-11-14] MEDS ORDERED: *HR* Metoprolol 5 MG/5 ML VIAL IVP ONE (15:54)
[2020-11-14] MEDS ORDERED: carvediloL 6.25 MG TABLET PO ONE (15:55)
[2020-11-14] MEDS ORDERED: *HR* Warfarin 2 MG TABLET PO ONE (18:00)
[2020-11-14] MEDS ORDERED: Warfarin perPT PO PRN (18:00)
[2020-11-14] MEDS: carvediloL 6.25 MG TABLET PO SCH (22:54)
[2020-11-14] MEDS: Gabapentin 100 MG CAPSULE PO SCH (22:54)
[2020-11-15] MEDS: Sodium Bicarbonate 75 MEQ in 0.45 % Sodium Chloride 1,000 ML IVC SCH ×4 (05:21→23:03)
[2020-11-15 06:48] LABS: INR 2.6
[2020-11-15 06:56] LABS: Calcium 10.4 mg/dL (8.6-10.3); Magnesium 1.8 mg/dL (1.6-2.6); Phosphorous 3.1 mg/dL (2.7-4.5)
[2020-11-15 07:21] LABS: Basophils % 0.2 %; Eosinophils # 0.1 K/mcL (0.0-0.6); Eosinophils % 1.5 %; Hematocrit 29.5 % (35.3-44.9); Hemoglobin 9.4 g/dL (11.5-15.4); Immature Granulocytes % 0.6 % (0-4); Lymphocytes # 0.6 K/mcL (0.6-4.6); Lymphocytes % 13.1 %; Mean Corpuscular HGB Conc 31.9 g/dL (31.6-35.5); Mean Corpuscular Volume 94.2 fL (83.0-100.0); Mean Platelet Volume 9.5 fL (9.4-12.4); Monocytes # 0.5 K/mcL (0.0-1.3); Monocytes % 10.8 %; Red Blood Count 3.13 M/mcL (3.82-4.97); Segmented Neutrophils % 73.8 %; White Blood Count 4.8 K/mcL (4.3-11.1)
[2020-11-15 07:23] LABS: Neutrophils # 3.5 K/mcL (1.6-8.9); Platelet Count 88 K/mcL (140-400)
[2020-11-15] MEDS: SODIUM ZIRCONIUM CYCLOSILICATE 5 GM POWD.PACK PO SCH (08:34)
[2020-11-15] MEDS: FLUoxetine 20 MG CAPSULE PO SCH (08:35)
[2020-11-15] MEDS: Insulin LISPRO 300 UNITS/3 ML VIAL SUBQ SCH ×4 (08:35→20:24)
[2020-11-15] MEDS: carvediloL 6.25 MG TABLET PO SCH ×2 (08:35→20:23)
[2020-11-15] MEDS: Gabapentin 100 MG CAPSULE PO SCH ×3 (08:35→20:23)
[2020-11-15 17:28] LABS: Lambda Qnt Free Light Chains 36.24 mg/L (5.71-26.30)
[2020-11-15] MEDS ORDERED: *HR* Warfarin 0.5 MG TABLET PO ONE (18:00)
[2020-11-16] MEDS: Sodium Bicarbonate 75 MEQ in 0.45 % Sodium Chloride 1,000 ML IVC SCH ×2 (01:56→15:59)
[2020-11-16 07:44] LABS: Eosinophils % 1.8 %; Hematocrit 26.7 % (35.3-44.9)
[2020-11-16 07:45] LABS: Basophils % 0.3 %; Eosinophils # 0.1 K/mcL (0.0-0.6); Hemoglobin 8.4 g/dL (11.5-15.4); Immature Granulocytes % 0.3 % (0-4); Immature Platelets 1.4 % (1.1-6.1); Lymphocytes # 0.7 K/mcL (0.6-4.6); Lymphocytes % 18.4 %; Mean Corpuscular HGB Conc 31.5 g/dL (31.6-35.5); Mean Corpuscular Volume 95.4 fL (83.0-100.0); Mean Platelet Volume 9.6 fL (9.4-12.4); Monocytes # 0.5 K/mcL (0.0-1.3); Monocytes % 11.9 %; Neutrophils # 2.6 K/mcL (1.6-8.9); Red Cell Distribution Width 14.3 % (11.5-14.5); Segmented Neutrophils % 67.3 %; White Blood Count 3.9 K/mcL (4.3-11.1)
[2020-11-16 07:54] LABS: INR 1.8; Prothrombin Time 20.5 Seconds (9.4-12.1)
[2020-11-16 07:55] LABS: Platelet Count 85 K/mcL (140-400)
[2020-11-16 08:25] LABS: Calcium 9.6 mg/dL (8.6-10.3); Magnesium 1.6 mg/dL (1.6-2.6); Phosphorous 3.5 mg/dL (2.7-4.5); Potassium 4.6 mEq/L (3.5-5.1)
[2020-11-16 08:42] LABS: Kappa Qnt Free Light Chains 131.04 mg/L (3.30-19.40)
[2020-11-16] MEDS: SODIUM ZIRCONIUM CYCLOSILICATE 5 GM POWD.PACK PO SCH (10:01)
[2020-11-16] MEDS: carvediloL 6.25 MG TABLET PO SCH ×2 (10:01→19:18)
[2020-11-16] MEDS: Gabapentin 100 MG CAPSULE PO SCH ×3 (10:01→19:17)
[2020-11-16] MEDS: FLUoxetine 20 MG CAPSULE PO SCH (10:01)
[2020-11-16] MEDS: Insulin LISPRO 300 UNITS/3 ML VIAL SUBQ SCH ×4 (10:03→19:21)
[2020-11-16] MEDS: *HR* HYDROcodone/Acet 7.5/325 mg TABLET PO PRN (17:34)
[2020-11-16] MEDS ORDERED: *HR* Warfarin 3 MG TABLET PO ONE (18:00)
[2020-11-17] MEDS: Sodium Bicarbonate 75 MEQ in 0.45 % Sodium Chloride 1,000 ML IVC SCH ×2 (01:03→07:36)
[2020-11-17] MEDS: *HR* HYDROcodone/Acet 5/325 mg TABLET PO PRN ×3 (06:25→22:34)
[2020-11-17 06:27] LABS: Eosinophils % 2.7 %
[2020-11-17 06:30] LABS: Basophils % 0.7 %; Eosinophils # 0.1 K/mcL (0.0-0.6); Hematocrit 27.2 % (35.3-44.9); Hemoglobin 8.2 g/dL (11.5-15.4); Immature Granulocytes % 0.7 % (0-4); Immature Platelets 1.4 % (1.1-6.1); Lymphocytes # 0.7 K/mcL (0.6-4.6); Lymphocytes % 22.1 %; Mean Corpuscular HGB Conc 30.1 g/dL (31.6-35.5); Mean Corpuscular Hemoglobin 29.3 pg (28.0-33.3); Mean Corpuscular Volume 97.1 fL (83.0-100.0); Mean Platelet Volume 9.1 fL (9.4-12.4); Monocytes # 0.4 K/mcL (0.0-1.3); Monocytes % 12.4 %; Neutrophils # 1.8 K/mcL (1.6-8.9); Red Cell Distribution Width 14.1 % (11.5-14.5); Segmented Neutrophils % 61.4 %
[2020-11-17 06:32] LABS: Platelet Count 85 K/mcL (140-400)
[2020-11-17 06:35] LABS: INR 1.5; Prothrombin Time 17.6 Seconds (9.4-12.1)
[2020-11-17 06:53] LABS: Calcium 9.6 mg/dL (8.6-10.3); Magnesium 1.6 mg/dL (1.6-2.6); Phosphorous 3.7 mg/dL (2.7-4.5)
[2020-11-17] MEDS: Insulin LISPRO 300 UNITS/3 ML VIAL SUBQ SCH ×4 (08:25→22:25)
[2020-11-17] MEDS: Gabapentin 100 MG CAPSULE PO SCH ×3 (09:29→22:33)
[2020-11-17] MEDS: SODIUM ZIRCONIUM CYCLOSILICATE 5 GM POWD.PACK PO SCH (09:29)
[2020-11-17] MEDS: carvediloL 6.25 MG TABLET PO SCH ×2 (09:29→22:33)
[2020-11-17] MEDS: FLUoxetine 20 MG CAPSULE PO SCH (09:29)
[2020-11-17] MEDS ORDERED: Mag Hydrox/Al Hydrox/Simeth 30 ML UDC PO PRN (15:03)
[2020-11-17 17:33] LABS: Alpha 2 Globulin (PEP) 0.75 g/dL (0.48-1.05); Beta Globulin (PEP) 0.71 g/dL (0.48-1.10)
[2020-11-17] MEDS ORDERED: *HR* Warfarin 4 MG TABLET PO ONE (18:00)
[2020-11-18] MEDS: *HR* HYDROcodone/Acet 5/325 mg TABLET PO PRN (05:28)
[2020-11-18 06:03] LABS: Basophils % 0.3 %; Immature Granulocytes % 0.7 % (0-4)
[2020-11-18 06:05] LABS: Eosinophils # 0.1 K/mcL (0.0-0.6); Eosinophils % 3.3 %; Hematocrit 26.9 % (35.3-44.9); Hemoglobin 8.3 g/dL (11.5-15.4); Immature Platelets 0.9 % (1.1-6.1); Lymphocytes # 0.6 K/mcL (0.6-4.6); Lymphocytes % 18.3 %; Mean Corpuscular HGB Conc 30.9 g/dL (31.6-35.5); Mean Corpuscular Hemoglobin 30.2 pg (28.0-33.3); Mean Corpuscular Volume 97.8 fL (83.0-100.0); Mean Platelet Volume 9.6 fL (9.4-12.4); Monocytes # 0.3 K/mcL (0.0-1.3); Red Blood Count 2.75 M/mcL (3.82-4.97); Segmented Neutrophils % 66.4 %
[2020-11-18 06:09] LABS: INR 1.6
[2020-11-18 06:19] LABS: Calcium 9.9 mg/dL (8.6-10.3); Magnesium 1.6 mg/dL (1.6-2.6); Phosphorous 3.5 mg/dL (2.7-4.5); Potassium 4.1 mEq/L (3.5-5.1)
[2020-11-18 07:08] LABS: Platelet Count 94 K/mcL (140-400)
[2020-11-18 07:09] VITALS: BP 117/68
[2020-11-18] MEDS: Insulin LISPRO 300 UNITS/3 ML VIAL SUBQ SCH ×2 (07:53→12:45)
[2020-11-18] MEDS: SODIUM ZIRCONIUM CYCLOSILICATE 5 GM POWD.PACK PO SCH (08:21)
[2020-11-18] MEDS: FLUoxetine 20 MG CAPSULE PO SCH (08:22)
[2020-11-18] MEDS: carvediloL 6.25 MG TABLET PO SCH (08:22)
[2020-11-18] MEDS: Gabapentin 100 MG CAPSULE PO SCH (08:22)
[2020-11-18 08:56] LABS: IFE Reflexed NOT DONE
[2020-11-18 10:22] LABS: Total Volume 24 Hour,Urine 1.04 Liters (0.60-1.60)
[2020-11-18 10:57] LABS: Protein/Creatinine Ratio,Urine 0.19 mg/mg (0.00-0.20)
[2020-11-18] MEDS: *HR* HYDROcodone/Acet 7.5/325 mg TABLET PO PRN (13:34)
[2020-11-18] MEDS ORDERED: *HR* Warfarin 4 MG TABLET PO ONE (18:00)
== END 2020-11-18 14:24 | disposition home health service (06) | DRG 683 ==
LOC: 2NENU 16:14 → EMEROOARM 16:14 → 2NENU 21:34 → 3BNU 11-16 16:15
PROVIDERS: ADMIT Internal Medicine; ATTEND Internal Medicine

== ENCOUNTER 2020-12-03 20:22 | Observation (INO) ==
[2020-12-03 21:45] LABS: Hematocrit 27.2 % (35.3-44.9); Hemoglobin 8.2 g/dL (11.5-15.4); Mean Corpuscular HGB Conc 30.1 g/dL (31.6-35.5)
[2020-12-03 21:47] LABS: Basophils % 0.5 %; Eosinophils # 0.1 K/mcL (0.0-0.6); Eosinophils % 2.7 %; Immature Granulocytes % 0.5 % (0-4); Immature Platelets 1.4 % (1.1-6.1); Lymphocytes # 0.7 K/mcL (0.6-4.6); Lymphocytes % 17.6 %; Mean Corpuscular Hemoglobin 30.3 pg (28.0-33.3); Mean Corpuscular Volume 100.4 fL (83.0-100.0); Mean Platelet Volume 9.8 fL (9.4-12.4); Monocytes # 0.4 K/mcL (0.0-1.3); Monocytes % 9.6 %; Neutrophils # 2.6 K/mcL (1.6-8.9); Red Blood Count 2.71 M/mcL (3.82-4.97); Red Cell Distribution Width 15.7 % (11.5-14.5); Segmented Neutrophils % 69.1 %; White Blood Count 3.8 K/mcL (4.3-11.1)
[2020-12-03 21:48] LABS: Platelet Count 81 K/mcL (140-400)
[2020-12-03 22:06] LABS: Calcium 9.9 mg/dL (8.6-10.3); Potassium 4.9 mEq/L (3.5-5.1)
[2020-12-03 22:07] LABS: Troponin I 0.03 ng/mL (< 0.04)
[2020-12-03 22:16] LABS: Bilirubin,Urine Negative (Negative); Blood,Urine Negative (Negative); Clarity,Urine Clear (Clear); Color,Urine Light-Yellow (Yellow); Glucose,Urine (UA) Normal (Normal); Ketones,Urine Negative (Negative); Leukocyte Esterase,Urine Negative (Negative); Nitrite,Urine Negative (Negative); Protein,Urine Negative (Neg-Trace); Specific Gravity,Urine 1.014 (1.010-1.025); Urobilinogen,Urine Normal (Normal)
[2020-12-03] MEDS ORDERED: Furosemide 20 MG/2 ML VIAL IVP ONE (22:34)
[2020-12-04] MEDS ORDERED: Naloxone 0.4 MG/ML INJ IVP PRN (00:50)
[2020-12-04] MEDS ORDERED: Ondansetron 4 MG/2 ML VIAL IVP PRN (00:50)
[2020-12-04] MEDS ORDERED: *HR* Dextrose 50 % in Water (Vial) 50 ML VIAL IVP PRN (00:53)
[2020-12-04] MEDS ORDERED: Dextrose Gel 15 GM/37.5 ML TUBE PO PRN ×2 (00:53)
[2020-12-04] MEDS ORDERED: D5% in Water 1,000 ML IVC PRN (00:53)
[2020-12-04] MEDS: Insulin LISPRO 300 UNITS/3 ML VIAL SUBQ SCH ×5 (01:06→19:49)
[2020-12-04 05:31] LABS: Mean Corpuscular Volume 101.1 fL (83.0-100.0)
[2020-12-04 05:33] LABS: Basophils % 0.3 %; Eosinophils # 0.1 K/mcL (0.0-0.6); Eosinophils % 3.1 %; Hematocrit 27.3 % (35.3-44.9); Hemoglobin 8.2 g/dL (11.5-15.4); Immature Granulocytes % 0.3 % (0-4); Immature Platelets 0.8 % (1.1-6.1); Lymphocytes # 0.6 K/mcL (0.6-4.6); Lymphocytes % 18.1 %; Mean Corpuscular Hemoglobin 30.4 pg (28.0-33.3); Mean Platelet Volume 9.1 fL (9.4-12.4); Monocytes # 0.4 K/mcL (0.0-1.3); Monocytes % 10.7 %; Neutrophils # 2.4 K/mcL (1.6-8.9); Red Cell Distribution Width 15.4 % (11.5-14.5); Segmented Neutrophils % 67.5 %; White Blood Count 3.5 K/mcL (4.3-11.1)
[2020-12-04 05:38] LABS: Platelet Count 87 K/mcL (140-400)
[2020-12-04 05:42] LABS: Calcium 10.3 mg/dL (8.6-10.3); Magnesium 1.3 mg/dL (1.6-2.6); Phosphorous 2.5 mg/dL (2.7-4.5); Potassium 4.7 mEq/L (3.5-5.1)
[2020-12-04 05:45] LABS: INR 2.8
[2020-12-04] MEDS: Furosemide 20 MG/2 ML VIAL IVP SCH ×2 (09:14→16:16)
[2020-12-04] MEDS: *HR* HYDROcodone/Acet 7.5/325 mg TABLET PO PRN ×2 (09:15→16:19)
[2020-12-04] MEDS: Pantoprazole 40 MG VIAL IVP SCH (09:16)
[2020-12-04] MEDS: carvediloL 6.25 MG TABLET PO SCH ×2 (09:16→16:15)
[2020-12-04] MEDS: Gabapentin 100 MG CAPSULE PO SCH ×3 (09:16→21:08)
[2020-12-04] MEDS: FLUoxetine 20 MG CAPSULE PO SCH (09:16)
[2020-12-04] MEDS ORDERED: *HR* Warfarin 3 MG TABLET PO ONE (18:00)
[2020-12-04] MEDS ORDERED: Warfarin perPT PO PRN (18:00)
[2020-12-05 00:32] LABS: Basophils % 0.3 %; Immature Granulocytes % 0.3 % (0-4); Mean Corpuscular Volume 101.9 fL (83.0-100.0); Monocytes % 11.5 %
[2020-12-05 00:34] LABS: Eosinophils # 0.1 K/mcL (0.0-0.6); Eosinophils % 2.6 %; Hematocrit 27.1 % (35.3-44.9); Immature Platelets 1.7 % (1.1-6.1); Lymphocytes # 0.7 K/mcL (0.6-4.6); Lymphocytes % 22.7 %; Mean Corpuscular HGB Conc 29.5 g/dL (31.6-35.5); Mean Corpuscular Hemoglobin 30.1 pg (28.0-33.3); Mean Platelet Volume 9.2 fL (9.4-12.4); Monocytes # 0.4 K/mcL (0.0-1.3); Neutrophils # 1.9 K/mcL (1.6-8.9); Red Blood Count 2.66 M/mcL (3.82-4.97); Red Cell Distribution Width 15.5 % (11.5-14.5); Segmented Neutrophils % 62.6 %
[2020-12-05 00:35] LABS: Platelet Count 74 K/mcL (140-400)
[2020-12-05 00:42] LABS: INR 2.6; Prothrombin Time 29.5 Seconds (9.4-12.1)
[2020-12-05 00:52] LABS: Potassium 4.4 mEq/L (3.5-5.1)
[2020-12-05] MEDS: *HR* HYDROcodone/Acet 7.5/325 mg TABLET PO PRN ×2 (05:19→16:57)
[2020-12-05] MEDS: FLUoxetine 20 MG CAPSULE PO SCH (08:03)
[2020-12-05] MEDS: carvediloL 6.25 MG TABLET PO SCH ×2 (08:03→16:48)
[2020-12-05] MEDS: Gabapentin 100 MG CAPSULE PO SCH ×3 (08:03→21:59)
[2020-12-05] MEDS: Pantoprazole 40 MG VIAL IVP SCH (08:03)
[2020-12-05] MEDS: Furosemide 20 MG/2 ML VIAL IVP SCH ×2 (08:03→16:48)
[2020-12-05] MEDS: polyethylene glycoL 3350 17 GM POWD.PACK PO SCH (08:03)
[2020-12-05] MEDS: Insulin LISPRO 300 UNITS/3 ML VIAL SUBQ SCH ×4 (08:04→19:50)
[2020-12-05] MEDS ORDERED: *HR* Warfarin 4 MG TABLET PO ONE (18:00)
[2020-12-06 01:59] LABS: Basophils % 0.4 %; Eosinophils # 0.1 K/mcL (0.0-0.6); Eosinophils % 3.4 %; Hematocrit 24.9 % (35.3-44.9); Hemoglobin 7.5 g/dL (11.5-15.4); Immature Granulocytes % 0.4 % (0-4); Immature Platelets 2.5 % (1.1-6.1); Lymphocytes # 0.6 K/mcL (0.6-4.6); Lymphocytes % 23.7 %; Mean Corpuscular HGB Conc 30.1 g/dL (31.6-35.5); Mean Corpuscular Hemoglobin 30.2 pg (28.0-33.3); Mean Corpuscular Volume 100.4 fL (83.0-100.0); Monocytes # 0.3 K/mcL (0.0-1.3); Monocytes % 11.3 %; Neutrophils # 1.6 K/mcL (1.6-8.9); Red Blood Count 2.48 M/mcL (3.82-4.97); Red Cell Distribution Width 15.5 % (11.5-14.5); Segmented Neutrophils % 60.8 %; White Blood Count 2.7 K/mcL (4.3-11.1)
[2020-12-06 02:00] LABS: Platelet Count 69 K/mcL (140-400)
[2020-12-06 02:01] LABS: INR 2.7
[2020-12-06 02:14] LABS: Potassium 4.4 mEq/L (3.5-5.1)
[2020-12-06] MEDS: *HR* HYDROcodone/Acet 7.5/325 mg TABLET PO PRN ×2 (06:20→16:58)
[2020-12-06] MEDS: Furosemide 20 MG/2 ML VIAL IVP SCH ×2 (07:54→16:59)
[2020-12-06] MEDS: polyethylene glycoL 3350 17 GM POWD.PACK PO SCH (07:54)
[2020-12-06] MEDS: FLUoxetine 20 MG CAPSULE PO SCH (07:55)
[2020-12-06] MEDS: Pantoprazole 40 MG VIAL IVP SCH (07:55)
[2020-12-06] MEDS: Gabapentin 100 MG CAPSULE PO SCH ×3 (07:55→20:43)
[2020-12-06] MEDS: carvediloL 6.25 MG TABLET PO SCH ×2 (07:55→16:59)
[2020-12-06] MEDS: Insulin LISPRO 300 UNITS/3 ML VIAL SUBQ SCH ×4 (08:01→20:53)
[2020-12-06] MEDS ORDERED: *HR* Warfarin 4 MG TABLET PO ONE (18:00)
[2020-12-07 01:05] LABS: Basophils % 0.4 %; Immature Granulocytes % 0.4 % (0-4)
[2020-12-07 01:07] LABS: Eosinophils # 0.1 K/mcL (0.0-0.6); Eosinophils % 2.5 %; Hematocrit 25.4 % (35.3-44.9); Hemoglobin 7.5 g/dL (11.5-15.4); Immature Platelets 2.2 % (1.1-6.1); Lymphocytes # 0.6 K/mcL (0.6-4.6); Lymphocytes % 26.5 %; Mean Corpuscular HGB Conc 29.5 g/dL (31.6-35.5); Mean Corpuscular Hemoglobin 29.6 pg (28.0-33.3); Mean Corpuscular Volume 100.4 fL (83.0-100.0); Mean Platelet Volume 10.2 fL (9.4-12.4); Monocytes # 0.2 K/mcL (0.0-1.3); Monocytes % 10.1 %; Neutrophils # 1.4 K/mcL (1.6-8.9); Platelet Count 72 K/mcL (140-400); Red Blood Count 2.53 M/mcL (3.82-4.97); Red Cell Distribution Width 15.3 % (11.5-14.5); Segmented Neutrophils % 60.1 %; White Blood Count 2.4 K/mcL (4.3-11.1)
[2020-12-07 01:11] LABS: INR 2.8; Prothrombin Time 31.8 Seconds (9.4-12.1)
[2020-12-07 01:24] LABS: Calcium 9.9 mg/dL (8.6-10.3); Potassium 4.3 mEq/L (3.5-5.1)
[2020-12-07] MEDS: *HR* HYDROcodone/Acet 7.5/325 mg TABLET PO PRN ×2 (06:19→18:25)
[2020-12-07] MEDS: Furosemide 20 MG/2 ML VIAL IVP SCH ×2 (09:38→18:18)
[2020-12-07] MEDS: polyethylene glycoL 3350 17 GM POWD.PACK PO SCH (09:38)
[2020-12-07] MEDS: Gabapentin 100 MG CAPSULE PO SCH ×3 (09:38→20:30)
[2020-12-07] MEDS: FLUoxetine 20 MG CAPSULE PO SCH (09:38)
[2020-12-07] MEDS: Pantoprazole 40 MG VIAL IVP SCH (09:38)
[2020-12-07] MEDS: Insulin LISPRO 300 UNITS/3 ML VIAL SUBQ SCH ×4 (09:40→20:32)
[2020-12-07] MEDS: carvediloL 6.25 MG TABLET PO SCH ×2 (09:46→18:18)
[2020-12-07] MEDS ORDERED: Sennosides/Docusate Sodium TABLET PO PRN (11:45)
[2020-12-07] MEDS ORDERED: *HR* Warfarin 4 MG TABLET PO ONE (18:00)
[2020-12-08] MEDS: *HR* HYDROcodone/Acet 7.5/325 mg TABLET PO PRN (05:56)
[2020-12-08 06:15] LABS: Basophils % 0.8 %; Hemoglobin 7.8 g/dL (11.5-15.4); Immature Granulocytes % 0.8 % (0-4); Red Cell Distribution Width 15.4 % (11.5-14.5)
[2020-12-08 06:18] LABS: Eosinophils # 0.1 K/mcL (0.0-0.6); Eosinophils % 2.8 %; Hematocrit 25.9 % (35.3-44.9); Immature Platelets 2.1 % (1.1-6.1); Lymphocytes # 0.7 K/mcL (0.6-4.6); Lymphocytes % 26.3 %; Mean Corpuscular HGB Conc 30.1 g/dL (31.6-35.5); Mean Corpuscular Hemoglobin 30.1 pg (28.0-33.3); Mean Platelet Volume 10.5 fL (9.4-12.4); Monocytes # 0.2 K/mcL (0.0-1.3); Monocytes % 9.7 %; Neutrophils # 1.5 K/mcL (1.6-8.9); Red Blood Count 2.59 M/mcL (3.82-4.97); Segmented Neutrophils % 59.6 %; White Blood Count 2.5 K/mcL (4.3-11.1)
[2020-12-08 06:22] LABS: INR 2.8; Platelet Count 72 K/mcL (140-400); Prothrombin Time 31.6 Seconds (9.4-12.1)
[2020-12-08 06:37] LABS: Calcium 10.2 mg/dL (8.6-10.3); Potassium 4.3 mEq/L (3.5-5.1)
[2020-12-08 06:53] VITALS: BP 117/74
[2020-12-08] MEDS: Furosemide 20 MG/2 ML VIAL IVP SCH (08:40)
[2020-12-08] MEDS: Pantoprazole 40 MG VIAL IVP SCH (08:40)
[2020-12-08] MEDS: FLUoxetine 20 MG CAPSULE PO SCH (08:41)
[2020-12-08] MEDS: Gabapentin 100 MG CAPSULE PO SCH (08:41)
[2020-12-08] MEDS: carvediloL 6.25 MG TABLET PO SCH (08:41)
[2020-12-08] MEDS: polyethylene glycoL 3350 17 GM POWD.PACK PO SCH (08:41)
[2020-12-08] MEDS: Insulin LISPRO 300 UNITS/3 ML VIAL SUBQ SCH (08:41)
== END 2020-12-08 11:44 | disposition home health service (06) ==
LOC: EMEROOARM 20:22 → 3NENU 20:22 → SUATTDRO 23:27 → 3NENU 12-04 00:03
PROVIDERS: ADMIT Internal Medicine; ATTEND Internal Medicine

== ENCOUNTER 2020-12-23 23:55 | Observation (INO) ==
[2020-12-24 00:48] LABS: Basophils % 0.4 %; Eosinophils # 0.1 K/mcL (0.0-0.6); Eosinophils % 2.9 %; Hematocrit 28.9 % (35.3-44.9); Hemoglobin 8.9 g/dL (11.5-15.4); Immature Granulocytes % 0.7 % (0-4); Lymphocytes # 0.6 K/mcL (0.6-4.6); Lymphocytes % 13.9 %; Mean Corpuscular HGB Conc 30.8 g/dL (31.6-35.5); Mean Corpuscular Hemoglobin 30.8 pg (28.0-33.3); Mean Platelet Volume 9.7 fL (9.4-12.4); Monocytes # 0.3 K/mcL (0.0-1.3); Monocytes % 7.2 %; Neutrophils # 3.3 K/mcL (1.6-8.9); Platelet Count 114 K/mcL (140-400); Red Blood Count 2.89 M/mcL (3.82-4.97); Red Cell Distribution Width 15.7 % (11.5-14.5); Segmented Neutrophils % 74.9 %; White Blood Count 4.5 K/mcL (4.3-11.1)
[2020-12-24 01:00] LABS: Calcium 10.6 mg/dL (8.6-10.3); Potassium 4.5 mEq/L (3.5-5.1)
[2020-12-24 01:02] LABS: Troponin I 0.03 ng/mL (< 0.04)
[2020-12-24] MEDS ORDERED: Furosemide 40 MG/4 ML VIAL IVP ONE (04:50)
[2020-12-24] MEDS ORDERED: Acetaminophen 325 MG TABLET PO PRN (05:00)
[2020-12-24] MEDS ORDERED: Ondansetron 4 MG/2 ML VIAL IVP PRN (05:00)
[2020-12-24] MEDS ORDERED: Naloxone 0.4 MG/ML INJ IVP PRN (05:00)
[2020-12-24] MEDS ORDERED: *HR* Promethazine 25 MG/ML VIAL IM PRN (05:00)
[2020-12-24] MEDS ORDERED: Melatonin 3 MG TABLET PO PRN (05:00)
[2020-12-24 07:13] LABS: INR 2.5; Prothrombin Time 28.6 Seconds (9.4-12.1)
[2020-12-24] MEDS ORDERED: *HR* Dextrose 50 % in Water (Vial) 50 ML VIAL IVP PRN (07:30)
[2020-12-24] MEDS ORDERED: D5% in Water 1,000 ML IVC PRN (07:30)
[2020-12-24] MEDS ORDERED: Dextrose Gel 15 GM/37.5 ML TUBE PO PRN ×2 (07:30)
[2020-12-24] MEDS: carvediloL 6.25 MG TABLET PO SCH ×2 (09:29→16:30)
[2020-12-24] MEDS: FLUoxetine 20 MG CAPSULE PO SCH (09:29)
[2020-12-24] MEDS: Gabapentin 100 MG CAPSULE PO SCH ×3 (09:29→20:32)
[2020-12-24] MEDS: Insulin LISPRO 300 UNITS/3 ML VIAL SUBQ SCH ×4 (09:29→20:32)
[2020-12-24] MEDS: polyethylene glycoL 3350 17 GM POWD.PACK PO SCH (09:30)
[2020-12-24] MEDS: *HR* HYDROcodone/Acet 5/325 mg TABLET PO PRN ×2 (09:36→22:48)
[2020-12-24] MEDS ORDERED: *HR* Warfarin 4 MG TABLET PO ONE (18:00)
[2020-12-24] MEDS ORDERED: Warfarin perPT PO PRN (18:00)
[2020-12-24] MEDS ORDERED: Ipratropium/Albuterol Neb 3 ML IH PRN (18:30)
[2020-12-25 02:12] LABS: Basophils % 0.3 %; Hemoglobin 7.8 g/dL (11.5-15.4); Red Cell Distribution Width 15.9 % (11.5-14.5)
[2020-12-25 02:13] LABS: Eosinophils # 0.1 K/mcL (0.0-0.6); Eosinophils % 2.4 %; Hematocrit 25.6 % (35.3-44.9); Immature Granulocytes % 0.3 % (0-4); Immature Platelets 1.7 % (1.1-6.1); Lymphocytes # 0.7 K/mcL (0.6-4.6); Mean Corpuscular HGB Conc 30.5 g/dL (31.6-35.5); Mean Corpuscular Hemoglobin 30.5 pg (28.0-33.3); Mean Platelet Volume 9.7 fL (9.4-12.4); Monocytes # 0.3 K/mcL (0.0-1.3); Monocytes % 9.7 %; Neutrophils # 2.2 K/mcL (1.6-8.9); Red Blood Count 2.56 M/mcL (3.82-4.97); Segmented Neutrophils % 67.3 %; White Blood Count 3.3 K/mcL (4.3-11.1)
[2020-12-25 02:14] LABS: VBG HCO3 34 mEq/L (21-27); VBG PCO2 56 mmHg (41-51); VBG PH 7.39 pH Units (7.32-7.42); VBG PO2 123 mmHg (25-50)
[2020-12-25 02:16] LABS: Platelet Count 89 K/mcL (140-400)
[2020-12-25 02:18] LABS: INR 2.2
[2020-12-25 02:30] LABS: Calcium 10.5 mg/dL (8.6-10.3); Magnesium 1.7 mg/dL (1.6-2.6); Phosphorous 2.6 mg/dL (2.7-4.5); Potassium 4.7 mEq/L (3.5-5.1)
[2020-12-25 02:46] LABS: Thyroid Stimulating Hormone 1.599 mcIU/mL (0.340-5.600)
[2020-12-25 02:48] LABS: Folate 14.8 ng/mL (3.0-16.0)
[2020-12-25 02:54] LABS: Hepatitis B Surface Antigen Nonreactive (Nonreactive)
[2020-12-25 03:22] LABS: Hepatitis C Virus Antibody Nonreactive (Nonreactive)
[2020-12-25 05:14] LABS: Estimated Average Glucose 117 mg/dl; Hemoglobin A1C 5.7 %
[2020-12-25] MEDS: polyethylene glycoL 3350 17 GM POWD.PACK PO SCH (08:01)
[2020-12-25] MEDS: Furosemide 40 MG/4 ML VIAL IVP SCH (08:01)
[2020-12-25] MEDS: Gabapentin 100 MG CAPSULE PO SCH ×3 (08:01→21:19)
[2020-12-25] MEDS: carvediloL 6.25 MG TABLET PO SCH ×2 (08:01→17:03)
[2020-12-25] MEDS: FLUoxetine 20 MG CAPSULE PO SCH (08:01)
[2020-12-25] MEDS: Insulin LISPRO 300 UNITS/3 ML VIAL SUBQ SCH ×4 (08:02→20:49)
[2020-12-25] MEDS: *HR* HYDROcodone/Acet 5/325 mg TABLET PO PRN (17:06)
[2020-12-25] MEDS ORDERED: *HR* Warfarin 3 MG TABLET PO ONE (18:00)
[2020-12-26] MEDS: *HR* HYDROcodone/Acet 5/325 mg TABLET PO PRN ×2 (04:06→22:15)
[2020-12-26 06:45] LABS: Hemoglobin 7.8 g/dL (11.5-15.4); Immature Granulocytes % 0.3 % (0-4)
[2020-12-26 06:46] LABS: Basophils % 0.7 %; Eosinophils # 0.1 K/mcL (0.0-0.6); Eosinophils % 3.6 %; Hematocrit 26.5 % (35.3-44.9); Immature Platelets 1.7 % (1.1-6.1); Lymphocytes # 0.6 K/mcL (0.6-4.6); Lymphocytes % 20.2 %; Mean Corpuscular HGB Conc 29.4 g/dL (31.6-35.5); Mean Corpuscular Hemoglobin 29.8 pg (28.0-33.3); Mean Corpuscular Volume 101.1 fL (83.0-100.0); Mean Platelet Volume 10.9 fL (9.4-12.4); Monocytes # 0.3 K/mcL (0.0-1.3); Monocytes % 10.1 %; Red Blood Count 2.62 M/mcL (3.82-4.97); Red Cell Distribution Width 15.5 % (11.5-14.5); Segmented Neutrophils % 65.1 %; White Blood Count 3.1 K/mcL (4.3-11.1)
[2020-12-26 06:53] LABS: Platelet Count 88 K/mcL (140-400)
[2020-12-26 06:54] LABS: INR 2.3; Prothrombin Time 26.1 Seconds (9.4-12.1)
[2020-12-26 06:58] LABS: Calcium 10.5 mg/dL (8.6-10.3); Magnesium 1.8 mg/dL (1.6-2.6); Phosphorous 2.7 mg/dL (2.7-4.5); Potassium 4.6 mEq/L (3.5-5.1)
[2020-12-26] MEDS: Insulin LISPRO 300 UNITS/3 ML VIAL SUBQ SCH ×4 (07:43→20:09)
[2020-12-26] MEDS: Furosemide 40 MG/4 ML VIAL IVP SCH (10:14)
[2020-12-26] MEDS: FLUoxetine 20 MG CAPSULE PO SCH (10:14)
[2020-12-26] MEDS: carvediloL 6.25 MG TABLET PO SCH ×2 (10:14→16:49)
[2020-12-26] MEDS: polyethylene glycoL 3350 17 GM POWD.PACK PO SCH (10:15)
[2020-12-26] MEDS: Gabapentin 100 MG CAPSULE PO SCH ×3 (10:15→20:59)
[2020-12-26] MEDS ORDERED: *HR* Warfarin 4 MG TABLET PO ONE (18:00)
[2020-12-27 07:06] LABS: Red Blood Count 2.52 M/mcL (3.82-4.97); Segmented Neutrophils % 62.6 %
[2020-12-27 07:08] LABS: Basophils % 0.7 %; Eosinophils # 0.1 K/mcL (0.0-0.6); Eosinophils % 3.5 %; Hematocrit 25.7 % (35.3-44.9); Hemoglobin 7.6 g/dL (11.5-15.4); Immature Granulocytes % 0.4 % (0-4); Immature Platelets 1.9 % (1.1-6.1); Lymphocytes # 0.6 K/mcL (0.6-4.6); Lymphocytes % 22.6 %; Mean Corpuscular HGB Conc 29.6 g/dL (31.6-35.5); Mean Corpuscular Hemoglobin 30.2 pg (28.0-33.3); Mean Platelet Volume 10.7 fL (9.4-12.4); Monocytes # 0.3 K/mcL (0.0-1.3); Monocytes % 10.2 %; Neutrophils # 1.8 K/mcL (1.6-8.9); Red Cell Distribution Width 15.5 % (11.5-14.5); White Blood Count 2.8 K/mcL (4.3-11.1)
[2020-12-27 07:10] LABS: Platelet Count 83 K/mcL (140-400)
[2020-12-27 07:11] LABS: INR 2.3
[2020-12-27 07:18] LABS: Calcium 10.3 mg/dL (8.6-10.3); Magnesium 1.8 mg/dL (1.6-2.6); Potassium 4.7 mEq/L (3.5-5.1)
[2020-12-27] MEDS: FLUoxetine 20 MG CAPSULE PO SCH (08:14)
[2020-12-27] MEDS: polyethylene glycoL 3350 17 GM POWD.PACK PO SCH (08:14)
[2020-12-27] MEDS: Furosemide 40 MG TABLET PO SCH (08:15)
[2020-12-27] MEDS: Spironolactone 12.5 MG TABLET PO SCH (08:15)
[2020-12-27] MEDS: Insulin LISPRO 300 UNITS/3 ML VIAL SUBQ SCH ×4 (08:15→20:42)
[2020-12-27] MEDS: Gabapentin 100 MG CAPSULE PO SCH ×3 (08:15→20:42)
[2020-12-27] MEDS: carvediloL 6.25 MG TABLET PO SCH ×2 (08:15→17:10)
[2020-12-27] MEDS: *HR* HYDROcodone/Acet 5/325 mg TABLET PO PRN (14:42)
[2020-12-27] MEDS ORDERED: *HR* Warfarin 3 MG TABLET PO ONE (18:15)
[2020-12-28] MEDS: *HR* HYDROcodone/Acet 5/325 mg TABLET PO PRN ×3 (05:17→21:02)
[2020-12-28 06:58] LABS: VBG HCO3 33 mEq/L (21-27); VBG PCO2 57 mmHg (41-51); VBG PH 7.38 pH Units (7.32-7.42); VBG PO2 209 mmHg (25-50)
[2020-12-28 06:59] LABS: Basophils % 0.6 %; Eosinophils # 0.1 K/mcL (0.0-0.6); Hematocrit 26.8 % (35.3-44.9); Hemoglobin 8.1 g/dL (11.5-15.4); Immature Granulocytes % 0.6 % (0-4); Immature Platelets 1.6 % (1.1-6.1); Lymphocytes # 0.7 K/mcL (0.6-4.6); Lymphocytes % 19.8 %; Mean Corpuscular HGB Conc 30.2 g/dL (31.6-35.5); Mean Corpuscular Hemoglobin 30.8 pg (28.0-33.3); Mean Corpuscular Volume 101.9 fL (83.0-100.0); Mean Platelet Volume 10.1 fL (9.4-12.4); Monocytes # 0.4 K/mcL (0.0-1.3); Monocytes % 10.6 %; Neutrophils # 2.1 K/mcL (1.6-8.9); Platelet Count 80 K/mcL (140-400); Red Blood Count 2.63 M/mcL (3.82-4.97); Red Cell Distribution Width 15.3 % (11.5-14.5); Segmented Neutrophils % 64.4 %; White Blood Count 3.3 K/mcL (4.3-11.1)
[2020-12-28 07:04] LABS: INR 2.5; Prothrombin Time 27.8 Seconds (9.4-12.1)
[2020-12-28 07:15] LABS: Calcium 10.3 mg/dL (8.6-10.3); Magnesium 1.9 mg/dL (1.6-2.6); Potassium 4.8 mEq/L (3.5-5.1)
[2020-12-28] MEDS: Spironolactone 12.5 MG TABLET PO SCH (08:37)
[2020-12-28] MEDS: Furosemide 40 MG TABLET PO SCH (08:37)
[2020-12-28] MEDS: Gabapentin 100 MG CAPSULE PO SCH ×3 (08:37→20:15)
[2020-12-28] MEDS: carvediloL 6.25 MG TABLET PO SCH ×2 (08:37→16:43)
[2020-12-28] MEDS: FLUoxetine 20 MG CAPSULE PO SCH (08:37)
[2020-12-28] MEDS: Insulin LISPRO 300 UNITS/3 ML VIAL SUBQ SCH ×4 (08:38→21:03)
[2020-12-28] MEDS: polyethylene glycoL 3350 17 GM POWD.PACK PO SCH (08:38)
[2020-12-28] MEDS ORDERED: *HR* Warfarin 4 MG TABLET PO ONE (18:00)
[2020-12-29 05:47] LABS: Basophils % 0.7 %; Eosinophils # 0.1 K/mcL (0.0-0.6); Eosinophils % 4.1 %; Hematocrit 25.9 % (35.3-44.9); Hemoglobin 7.5 g/dL (11.5-15.4); Immature Granulocytes % 0.7 % (0-4); Lymphocytes # 0.6 K/mcL (0.6-4.6); Lymphocytes % 21.9 %; Mean Corpuscular Hemoglobin 29.8 pg (28.0-33.3); Mean Corpuscular Volume 102.8 fL (83.0-100.0); Mean Platelet Volume 9.7 fL (9.4-12.4); Monocytes # 0.3 K/mcL (0.0-1.3); Neutrophils # 1.7 K/mcL (1.6-8.9); Red Blood Count 2.52 M/mcL (3.82-4.97); Red Cell Distribution Width 15.1 % (11.5-14.5); Segmented Neutrophils % 62.6 %; White Blood Count 2.7 K/mcL (4.3-11.1)
[2020-12-29 05:48] LABS: Platelet Count 77 K/mcL (140-400)
[2020-12-29 05:57] LABS: INR 2.1; Prothrombin Time 23.7 Seconds (9.4-12.1)
[2020-12-29 06:06] LABS: Calcium 10.4 mg/dL (8.6-10.3); Magnesium 1.8 mg/dL (1.6-2.6)
[2020-12-29] MEDS: FLUoxetine 20 MG CAPSULE PO SCH (08:08)
[2020-12-29] MEDS: Furosemide 40 MG TABLET PO SCH (08:08)
[2020-12-29] MEDS: *HR* HYDROcodone/Acet 5/325 mg TABLET PO PRN ×2 (08:08→20:32)
[2020-12-29] MEDS: carvediloL 6.25 MG TABLET PO SCH ×2 (08:08→17:37)
[2020-12-29] MEDS: Gabapentin 100 MG CAPSULE PO SCH ×3 (08:08→20:30)
[2020-12-29] MEDS: Insulin LISPRO 300 UNITS/3 ML VIAL SUBQ SCH ×4 (08:09→20:27)
[2020-12-29] MEDS: polyethylene glycoL 3350 17 GM POWD.PACK PO SCH (08:09)
[2020-12-29] MEDS ORDERED: *HR* Warfarin 3 MG TABLET PO ONE (18:00)
[2020-12-30] MEDS: *HR* HYDROcodone/Acet 5/325 mg TABLET PO PRN (09:23)
[2020-12-30] MEDS: carvediloL 6.25 MG TABLET PO SCH ×2 (09:24→17:27)
[2020-12-30] MEDS: polyethylene glycoL 3350 17 GM POWD.PACK PO SCH (09:24)
[2020-12-30] MEDS: Insulin LISPRO 300 UNITS/3 ML VIAL SUBQ SCH ×3 (09:24→16:38)
[2020-12-30] MEDS: Furosemide 40 MG TABLET PO SCH (09:24)
[2020-12-30] MEDS: Gabapentin 100 MG CAPSULE PO SCH ×2 (09:24→15:37)
[2020-12-30] MEDS: FLUoxetine 20 MG CAPSULE PO SCH (09:24)
[2020-12-30 10:21] LABS: Red Blood Count 2.57 M/mcL (3.82-4.97); Red Cell Distribution Width 15.1 % (11.5-14.5)
[2020-12-30 10:22] LABS: Basophils % 0.6 %; Eosinophils # 0.1 K/mcL (0.0-0.6); Eosinophils % 3.5 %; Hematocrit 26.1 % (35.3-44.9); Hemoglobin 7.8 g/dL (11.5-15.4); Immature Granulocytes % 0.6 % (0-4); Immature Platelets 1.7 % (1.1-6.1); Lymphocytes # 0.5 K/mcL (0.6-4.6); Mean Corpuscular HGB Conc 29.9 g/dL (31.6-35.5); Mean Corpuscular Hemoglobin 30.4 pg (28.0-33.3); Mean Corpuscular Volume 101.6 fL (83.0-100.0); Mean Platelet Volume 9.3 fL (9.4-12.4); Monocytes # 0.3 K/mcL (0.0-1.3); Neutrophils # 2.2 K/mcL (1.6-8.9); Segmented Neutrophils % 69.3 %; White Blood Count 3.1 K/mcL (4.3-11.1)
[2020-12-30 10:26] LABS: INR 2.2; Prothrombin Time 24.4 Seconds (9.4-12.1)
[2020-12-30 10:40] LABS: Calcium 10.5 mg/dL (8.6-10.3); Magnesium 1.7 mg/dL (1.6-2.6); Potassium 4.8 mEq/L (3.5-5.1)
[2020-12-30 10:40] LABS: Adenovirus Not Detected (Not Detect); Coronavirus 229E Not Detected (Not Detect); Coronavirus HKU1 Not Detected (Not Detect); Coronavirus NL63 Not Detected (Not Detect); Coronavirus OC43 Not Detected (Not Detect)
[2020-12-30 10:41] LABS: Bordetella Pertussis Not Detected (Not Detect); Chlamydophila pneumoniae Not Detected (Not Detect); Human Metapneumovirus Not Detected (Not Detect); Human Rhinovirus/Enterovirus Not Detected (Not Detect); Influenza A Subtype 2009 H1 Not Detected (Not Detect); Influenza B Not Detected (Not Detect); Mycoplasma pneumoniae Not Detected (Not Detect); Parainfluenza Virus 1 Not Detected (Not Detect); Parainfluenza Virus 2 Not Detected (Not Detect); Parainfluenza Virus 3 Not Detected (Not Detect); Parainfluenza Virus 4 Not Detected (Not Detect); Respiratory Syncytial Virus Not Detected (Not Detect); SARS-CoV-2 Not Detected (Not Detect)
[2020-12-30 11:16] LABS: Platelet Count 78 K/mcL (140-400)
[2020-12-30 16:27] VITALS: BP 152/97
[2020-12-30] MEDS ORDERED: *HR* Warfarin 4 MG TABLET PO ONE (18:00)
== END 2020-12-30 18:24 ==
LOC: EMEROOARM 23:55 → 2ANU 23:55 → SUATTDRO 12-24 05:06 → 2ANU 12-24 05:33
PROVIDERS: ADMIT Student in an Organized Health Care Education/Training Program; ATTEND Pharmacist

== ENCOUNTER 2021-02-02 07:11 | Observation (INO) ==
[2021-02-02 07:54] LABS: Basophils % 0.3 %; Eosinophils # 0.1 K/mcL (0.0-0.6); Eosinophils % 2.9 %; Hematocrit 29.8 % (35.3-44.9); Hemoglobin 8.9 g/dL (11.5-15.4); Immature Granulocytes % 0.6 % (0-4); Lymphocytes # 0.6 K/mcL (0.6-4.6); Lymphocytes % 17.3 %; Mean Corpuscular HGB Conc 29.9 g/dL (31.6-35.5); Mean Corpuscular Hemoglobin 29.9 pg (28.0-33.3); Mean Platelet Volume 10.2 fL (9.4-12.4); Monocytes # 0.4 K/mcL (0.0-1.3); Monocytes % 10.9 %; Neutrophils # 2.3 K/mcL (1.6-8.9); Red Blood Count 2.98 M/mcL (3.82-4.97); White Blood Count 3.4 K/mcL (4.3-11.1)
[2021-02-02 07:55] LABS: Platelet Count 96 K/mcL (140-400)
[2021-02-02 08:02] LABS: INR 3.9
[2021-02-02 08:04] LABS: Activated Partial Thrombo Time 41.8 Seconds (26.0-36.0)
[2021-02-02 08:07] LABS: Prothrombin Time 43.4 Seconds (9.4-12.1)
[2021-02-02 08:16] LABS: Calcium 10.7 mg/dL (8.6-10.3); Potassium 3.6 mEq/L (3.5-5.1)
[2021-02-02 08:17] LABS: Troponin I 0.03 ng/mL (< 0.04)
[2021-02-02] MEDS ORDERED: Ondansetron 4 MG/2 ML VIAL IVP PRN (09:21)
[2021-02-02] MEDS ORDERED: Naloxone 0.4 MG/ML INJ IVP PRN (09:21)
[2021-02-02] MEDS ORDERED: *HR* HYDROcodone/Acet 5/325 mg TABLET PO PRN (09:21)
[2021-02-02] MEDS ORDERED: Ipratropium/Albuterol Neb 3 ML IH PRN (09:25)
[2021-02-02] MEDS ORDERED: D5% in Water 1,000 ML IVC PRN (10:15)
[2021-02-02] MEDS ORDERED: Bumetanide 1 MG/4 ML VIAL IVP SCH (10:15)
[2021-02-02] MEDS ORDERED: Dextrose Gel 15 GM/37.5 ML TUBE PO PRN ×2 (10:15)
[2021-02-02] MEDS ORDERED: *HR* Dextrose 50 % in Water (Vial) 50 ML VIAL IVP PRN (10:15)
[2021-02-02] MEDS ORDERED: Isovue-370 500 ML BOTTLE IVP ONE ×2 (11:44)
[2021-02-02] MEDS: Insulin LISPRO 300 UNITS/3 ML VIAL SUBQ SCH ×2 (14:32→15:40)
[2021-02-02] MEDS ORDERED: Warfarin perPT PO SCH (18:00)
[2021-02-03] MEDS: Insulin LISPRO 300 UNITS/3 ML VIAL SUBQ SCH ×5 (00:16→20:02)
[2021-02-03 00:33] LABS: Basophils % 0.7 %; Eosinophils # 0.1 K/mcL (0.0-0.6); Eosinophils % 1.6 %; Immature Granulocytes % 0.7 % (0-4); Immature Platelets 1.9 % (1.1-6.1); Lymphocytes # 0.6 K/mcL (0.6-4.6); Lymphocytes % 17.7 %; Mean Corpuscular HGB Conc 29.6 g/dL (31.6-35.5); Mean Corpuscular Hemoglobin 29.6 pg (28.0-33.3); Mean Platelet Volume 10.9 fL (9.4-12.4); Monocytes # 0.3 K/mcL (0.0-1.3); Monocytes % 8.9 %; Neutrophils # 2.2 K/mcL (1.6-8.9); Segmented Neutrophils % 70.4 %; White Blood Count 3.1 K/mcL (4.3-11.1)
[2021-02-03 00:34] LABS: Platelet Count 86 K/mcL (140-400)
[2021-02-03 00:41] LABS: Prothrombin Time 23.2 Seconds (9.4-12.1)
[2021-02-03 00:51] LABS: Calcium 10.1 mg/dL (8.6-10.3); Magnesium 1.5 mg/dL (1.6-2.6); Phosphorous 2.7 mg/dL (2.7-4.5); Potassium 4.1 mEq/L (3.5-5.1)
[2021-02-03] MEDS ORDERED: Acetaminophen 325 MG TABLET PO PRN (07:16)
[2021-02-03] MEDS: polyethylene glycoL 3350 17 GM POWD.PACK PO SCH (08:08)
[2021-02-03] MEDS: FLUoxetine 20 MG CAPSULE PO SCH (08:09)
[2021-02-03] MEDS: Gabapentin 100 MG CAPSULE PO SCH ×3 (08:09→20:06)
[2021-02-03] MEDS ORDERED: *HR* Heparin 5,000 UNIT/ML VIAL IVP PRN ×2 (14:00)
[2021-02-03] MEDS ORDERED: metOLazone 5 MG TABLET PO ONE (14:00)
[2021-02-03] MEDS ORDERED: *HR* Heparin 5,000 UNIT/ML VIAL IVP ONE (14:00)
[2021-02-03] MEDS: Heparin 25,000UNIT/250ML 1/2NS 25,000 UNIT/250 ML IV.SOLN IVC SCH (15:18)
[2021-02-03] MEDS: Furosemide 40 MG/4 ML VIAL IVP SCH ×2 (15:18→20:06)
[2021-02-03 16:51] LABS: Red Cell Distribution Width 16.1 % (11.5-14.5)
[2021-02-03 16:53] LABS: Hematocrit 29.3 % (35.3-44.9); Hemoglobin 8.5 g/dL (11.5-15.4); Immature Platelets 2.3 % (1.1-6.1); Mean Corpuscular Hemoglobin 29.4 pg (28.0-33.3); Mean Corpuscular Volume 101.4 fL (83.0-100.0); Mean Platelet Volume 9.4 fL (9.4-12.4); Red Blood Count 2.89 M/mcL (3.82-4.97); White Blood Count 4.6 K/mcL (4.3-11.1)
[2021-02-03 17:02] LABS: INR 1.6; Prothrombin Time 18.5 Seconds (9.4-12.1)
[2021-02-03 17:08] LABS: Heparin anti-factor XA UFH 1.49 IU/mL (0.30-0.70)
[2021-02-04 00:46] LABS: Basophils % 0.4 %
[2021-02-04 00:48] LABS: Eosinophils # 0.1 K/mcL (0.0-0.6); Eosinophils % 2.2 %; Hematocrit 28.7 % (35.3-44.9); Hemoglobin 8.5 g/dL (11.5-15.4); Immature Granulocytes % 0.6 % (0-4); Lymphocytes # 0.9 K/mcL (0.6-4.6); Lymphocytes % 16.1 %; Mean Corpuscular HGB Conc 29.6 g/dL (31.6-35.5); Mean Corpuscular Hemoglobin 29.8 pg (28.0-33.3); Mean Corpuscular Volume 100.7 fL (83.0-100.0); Mean Platelet Volume 9.9 fL (9.4-12.4); Monocytes % 10.1 %; Neutrophils # 3.8 K/mcL (1.6-8.9); Platelet Count 114 K/mcL (140-400); Red Blood Count 2.85 M/mcL (3.82-4.97); Red Cell Distribution Width 16.3 % (11.5-14.5); Segmented Neutrophils % 70.6 %; White Blood Count 5.4 K/mcL (4.3-11.1)
[2021-02-04 00:49] LABS: Calcium 10.7 mg/dL (8.6-10.3); Potassium 4.3 mEq/L (3.5-5.1)
[2021-02-04 00:50] LABS: Monocytes # 0.6 K/mcL (0.0-1.3)
[2021-02-04 01:05] LABS: INR 1.6; Prothrombin Time 17.9 Seconds (9.4-12.1)
[2021-02-04 01:07] LABS: Heparin anti-factor XA UFH 1.4 IU/mL (0.30-0.70)
[2021-02-04] MEDS ORDERED: Acetaminophen 325 MG TABLET PO PRN (07:56)
[2021-02-04] MEDS: Gabapentin 100 MG CAPSULE PO SCH ×3 (08:13→20:21)
[2021-02-04] MEDS: FLUoxetine 20 MG CAPSULE PO SCH (08:13)
[2021-02-04] MEDS: Insulin LISPRO 300 UNITS/3 ML VIAL SUBQ SCH ×4 (08:13→20:16)
[2021-02-04] MEDS: polyethylene glycoL 3350 17 GM POWD.PACK PO SCH (13:55)
[2021-02-04] MEDS: Heparin 25,000UNIT/250ML 1/2NS 25,000 UNIT/250 ML IV.SOLN IVC SCH (13:56)
[2021-02-04] MEDS ORDERED: carvediloL 6.25 MG TABLET PO SCH (17:00)
[2021-02-05 00:56] LABS: Immature Granulocytes % 0.5 % (0-4); Mean Corpuscular Volume 102.6 fL (83.0-100.0)
[2021-02-05 00:58] LABS: Basophils % 0.2 %; Eosinophils % 0.7 %; Hematocrit 23.8 % (35.3-44.9); Hemoglobin 6.7 g/dL (11.5-15.4); Immature Platelets 1.8 % (1.1-6.1); Lymphocytes # 0.7 K/mcL (0.6-4.6); Lymphocytes % 16.8 %; Mean Corpuscular HGB Conc 28.2 g/dL (31.6-35.5); Mean Corpuscular Hemoglobin 28.9 pg (28.0-33.3); Mean Platelet Volume 9.7 fL (9.4-12.4); Monocytes # 0.5 K/mcL (0.0-1.3); Monocytes % 12.4 %; Neutrophils # 2.8 K/mcL (1.6-8.9); Red Blood Count 2.32 M/mcL (3.82-4.97); Red Cell Distribution Width 16.1 % (11.5-14.5); Segmented Neutrophils % 69.4 %
[2021-02-05 01:01] LABS: Platelet Count 82 K/mcL (140-400)
[2021-02-05 01:02] LABS: INR 1.5; Prothrombin Time 17.6 Seconds (9.4-12.1)
[2021-02-05 01:09] LABS: Calcium 9.9 mg/dL (8.6-10.3); Magnesium 1.9 mg/dL (1.6-2.6); Phosphorous 3.6 mg/dL (2.7-4.5); Potassium 4.6 mEq/L (3.5-5.1)
[2021-02-05] MEDS: Heparin 25,000UNIT/250ML 1/2NS 25,000 UNIT/250 ML IV.SOLN IVC SCH (05:24)
[2021-02-05] MEDS ORDERED: Pantoprazole 40 MG VIAL IVP SCH (07:49)
[2021-02-05 08:00] VITALS: BP 124/74
[2021-02-05 08:41] LABS: Hematocrit 24.1 % (35.3-44.9); Hemoglobin 6.9 g/dL (11.5-15.4)
== END 2021-02-05 08:31 | disposition short-term general hospital (02) ==
LOC: 2ANU 07:11 → EMEROOARM 07:11 → SUATTDRO 11:27 → 2ANU 12:53
PROVIDERS: ADMIT Internal Medicine; ATTEND Internal Medicine

== ENCOUNTER 2021-03-25 15:25 | Inpatient (IN) ==
[2021-03-25] MEDS ORDERED: 0.9 % Sodium Chloride 500 ML IVC ONE (16:10)
[2021-03-25] MEDS ORDERED: Naloxone 0.4 MG/ML INJ IVP PRN (17:00)
[2021-03-25 17:02] LABS: Hematocrit 25.8 % (35.3-44.9); Hemoglobin 7.8 g/dL (11.5-15.4); Mean Corpuscular HGB Conc 30.2 g/dL (31.6-35.5); Mean Corpuscular Hemoglobin 30.8 pg (28.0-33.3); Mean Platelet Volume 10.1 fL (9.4-12.4); Platelet Count 105 K/mcL (140-400); Red Blood Count 2.53 M/mcL (3.82-4.97); Red Cell Distribution Width 16.4 % (11.5-14.5); White Blood Count 3.2 K/mcL (4.3-11.1)
[2021-03-25 17:07] LABS: Prothrombin Time 33.2 Seconds (9.4-12.1)
[2021-03-25] MEDS ORDERED: D5% in Water 1,000 ML IVC PRN (17:20)
[2021-03-25] MEDS ORDERED: *HR* Dextrose 50 % in Water (Vial) 50 ML VIAL IVP PRN (17:20)
[2021-03-25] MEDS ORDERED: Dextrose Gel 15 GM/37.5 ML TUBE PO PRN ×2 (17:20)
[2021-03-26 04:35] LABS: Basophils % 0.4 %; Eosinophils # 0.1 K/mcL (0.0-0.6); Eosinophils % 4.3 %; Hematocrit 25.8 % (35.3-44.9); Hemoglobin 7.7 g/dL (11.5-15.4); Immature Granulocytes % 0.4 % (0-4); Lymphocytes # 0.6 K/mcL (0.6-4.6); Lymphocytes % 20.4 %; Mean Corpuscular HGB Conc 29.8 g/dL (31.6-35.5); Mean Corpuscular Hemoglobin 30.3 pg (28.0-33.3); Mean Corpuscular Volume 101.6 fL (83.0-100.0); Mean Platelet Volume 10.1 fL (9.4-12.4); Monocytes # 0.3 K/mcL (0.0-1.3); Monocytes % 11.8 %; Neutrophils # 1.8 K/mcL (1.6-8.9); Red Blood Count 2.54 M/mcL (3.82-4.97); Red Cell Distribution Width 16.5 % (11.5-14.5); Segmented Neutrophils % 62.7 %; White Blood Count 2.8 K/mcL (4.3-11.1)
[2021-03-26 04:36] LABS: Platelet Count 99 K/mcL (140-400)
[2021-03-26 04:52] LABS: Calcium 9.9 mg/dL (8.6-10.3); Potassium 4.7 mEq/L (3.5-5.1)
[2021-03-26 04:54] LABS: Phosphorous 3.7 mg/dL (2.7-4.5)
[2021-03-26 05:16] LABS: Folate 10.2 ng/mL (3.0-16.0)
[2021-03-26] MEDS ORDERED: Iron Sucrose Complex 400 MG in 0.9 % Sodium Chloride 250 ML IVPB ONE (07:23)
[2021-03-26] MEDS: Insulin LISPRO 300 UNITS/3 ML VIAL SUBQ SCH ×3 (08:45→17:33)
[2021-03-26] MEDS: Lactulose Oral Soln 20 GM/30 ML UDC PO SCH ×2 (08:45→20:21)
[2021-03-26] MEDS: polyethylene glycoL 3350 17 GM POWD.PACK PO SCH (08:48)
[2021-03-26] MEDS: Magnesium Oxide 400 MG TABLET PO SCH (08:48)
[2021-03-26] MEDS: Apixaban 5 MG TABLET PO SCH ×2 (08:48→20:22)
[2021-03-26] MEDS: Cyanocobalamin (B-12) 1,000 MCG/ML VIAL SQ SCH (08:50)
[2021-03-26] MEDS: FLUoxetine 20 MG CAPSULE PO SCH (08:53)
[2021-03-26] MEDS: carvediloL 6.25 MG TABLET PO SCH ×2 (08:54→17:33)
[2021-03-26] MEDS: Nystatin POWDER 30 GM BOTTLE TP SCH ×2 (12:18→20:30)
[2021-03-26] MEDS: Albumin 25% 25gram/100mL 25 GM/100 ML IV.SOLN IVPB SCH (17:34)
[2021-03-26] MEDS: Insulin DETEMIR 100 UNIT/ML X5UNITS SUBQ SCH (20:22)
[2021-03-27] MEDS: Albumin 25% 25gram/100mL 25 GM/100 ML IV.SOLN IVPB SCH ×3 (00:25→16:51)
[2021-03-27 05:25] LABS: Hematocrit 25.7 % (35.3-44.9); Hemoglobin 7.5 g/dL (11.5-15.4); Immature Platelets 1.4 % (1.1-6.1); Mean Corpuscular HGB Conc 29.2 g/dL (31.6-35.5); Mean Corpuscular Hemoglobin 30.1 pg (28.0-33.3); Mean Corpuscular Volume 103.2 fL (83.0-100.0); Mean Platelet Volume 10.2 fL (9.4-12.4); Red Blood Count 2.49 M/mcL (3.82-4.97); Red Cell Distribution Width 16.5 % (11.5-14.5); White Blood Count 2.5 K/mcL (4.3-11.1)
[2021-03-27 05:42] LABS: Albumin 4.1 g/dL (3.5-5.7); Albumin/Globulin Ratio 1.9 (1.1-2.2); Bilirubin,Direct 0.3 mg/dL (0.0-0.2); Bilirubin,Indirect 0.5 mg/dL (0.0-1.0); Bilirubin,Total 0.8 mg/dL (0.3-1.0); Calcium 10.2 mg/dL (8.6-10.3); Globulin 2.2 g/dL (2.4-3.5); Potassium 4.7 mEq/L (3.5-5.1); Total Protein 6.3 g/dL (6.4-8.9)
[2021-03-27] MEDS: Lactulose Oral Soln 20 GM/30 ML UDC PO SCH ×2 (07:57→20:43)
[2021-03-27] MEDS: carvediloL 6.25 MG TABLET PO SCH ×2 (07:57→16:51)
[2021-03-27] MEDS: FLUoxetine 20 MG CAPSULE PO SCH (07:57)
[2021-03-27] MEDS: Magnesium Oxide 400 MG TABLET PO SCH (07:58)
[2021-03-27] MEDS: Apixaban 5 MG TABLET PO SCH ×2 (07:58→20:30)
[2021-03-27] MEDS: Cyanocobalamin (B-12) 1,000 MCG/ML VIAL SQ SCH (07:59)
[2021-03-27] MEDS: Insulin LISPRO 300 UNITS/3 ML VIAL SUBQ SCH ×3 (08:00→15:53)
[2021-03-27] MEDS: polyethylene glycoL 3350 17 GM POWD.PACK PO SCH (08:00)
[2021-03-27] MEDS: Nystatin POWDER 30 GM BOTTLE TP SCH ×2 (08:00→20:31)
[2021-03-27] MEDS ORDERED: Furosemide 40 MG/4 ML VIAL IVP ONE (12:04)
[2021-03-27] MEDS: Ondansetron 4 MG/2 ML VIAL IVP PRN (12:16)
[2021-03-27] MEDS: Insulin DETEMIR 100 UNIT/ML X5UNITS SUBQ SCH (20:30)
[2021-03-27 21:07] LABS: Bilirubin,Urine Negative (Negative); Blood,Urine Negative (Negative); Clarity,Urine Clear (Clear); Color,Urine Yellow (Yellow); Glucose,Urine (UA) Normal (Normal); Ketones,Urine Negative (Negative); Leukocyte Esterase,Urine Negative (Negative); Nitrite,Urine Negative (Negative); PH,Urine 5.5 pH Units (5.0-8.0); Protein,Urine Negative (Neg-Trace); Specific Gravity,Urine 1.018 (1.010-1.025); Urobilinogen,Urine Normal (Normal)
[2021-03-27 21:47] LABS: Creatinine,Urine 151 mg/dL; Sodium, Urine < 10.0 mEq/L
[2021-03-28] MEDS: Albumin 25% 25gram/100mL 25 GM/100 ML IV.SOLN IVPB SCH ×2 (00:10→08:48)
[2021-03-28 00:57] LABS: Hemoglobin 7.3 g/dL (11.5-15.4); Mean Corpuscular Volume 103.3 fL (83.0-100.0)
[2021-03-28 00:59] LABS: Hematocrit 25.1 % (35.3-44.9); Immature Platelets 1.8 % (1.1-6.1); Mean Corpuscular HGB Conc 29.1 g/dL (31.6-35.5); Mean Platelet Volume 9.5 fL (9.4-12.4); Red Blood Count 2.43 M/mcL (3.82-4.97); Red Cell Distribution Width 16.3 % (11.5-14.5); White Blood Count 2.7 K/mcL (4.3-11.1)
[2021-03-28 01:15] LABS: Calcium 10.3 mg/dL (8.6-10.3); Potassium 4.8 mEq/L (3.5-5.1)
[2021-03-28] MEDS: carvediloL 6.25 MG TABLET PO SCH ×2 (08:46→16:59)
[2021-03-28] MEDS: Magnesium Oxide 400 MG TABLET PO SCH (08:46)
[2021-03-28] MEDS: Cyanocobalamin (B-12) 1,000 MCG/ML VIAL SQ SCH (08:47)
[2021-03-28] MEDS: Apixaban 5 MG TABLET PO SCH ×2 (08:47→22:22)
[2021-03-28] MEDS: FLUoxetine 20 MG CAPSULE PO SCH (08:47)
[2021-03-28] MEDS: Nystatin POWDER 30 GM BOTTLE TP SCH ×2 (08:49→22:23)
[2021-03-28] MEDS: Lactulose Oral Soln 20 GM/30 ML UDC PO SCH ×2 (08:55→22:22)
[2021-03-28] MEDS: polyethylene glycoL 3350 17 GM POWD.PACK PO SCH (08:56)
[2021-03-28] MEDS: Insulin LISPRO 300 UNITS/3 ML VIAL SUBQ SCH ×3 (09:02→16:59)
[2021-03-28] MEDS: Ondansetron 4 MG/2 ML VIAL IVP PRN (10:42)
[2021-03-28] MEDS ORDERED: Furosemide 40 MG/4 ML VIAL IVP ONE (11:16)
[2021-03-28] MEDS ORDERED: *HR* OxyCODONE/APAP 5/325 TABLET PO ONE (14:18)
[2021-03-28] MEDS: Insulin DETEMIR 100 UNIT/ML X5UNITS SUBQ SCH (22:22)
[2021-03-29 04:23] LABS: Hemoglobin 7.3 g/dL (11.5-15.4)
[2021-03-29 04:25] LABS: Hematocrit 24.8 % (35.3-44.9); Immature Platelets 2.1 % (1.1-6.1); Mean Corpuscular HGB Conc 29.4 g/dL (31.6-35.5); Mean Corpuscular Hemoglobin 30.9 pg (28.0-33.3); Mean Corpuscular Volume 105.1 fL (83.0-100.0); Mean Platelet Volume 9.6 fL (9.4-12.4); Red Blood Count 2.36 M/mcL (3.82-4.97); Red Cell Distribution Width 16.5 % (11.5-14.5); White Blood Count 2.6 K/mcL (4.3-11.1)
[2021-03-29 04:42] LABS: Calcium 10.7 mg/dL (8.6-10.3); Potassium 4.8 mEq/L (3.5-5.1)
[2021-03-29] MEDS: Insulin LISPRO 300 UNITS/3 ML VIAL SUBQ SCH ×3 (07:32→16:52)
[2021-03-29] MEDS: polyethylene glycoL 3350 17 GM POWD.PACK PO SCH (09:22)
[2021-03-29] MEDS: Magnesium Oxide 400 MG TABLET PO SCH (09:23)
[2021-03-29] MEDS: Cyanocobalamin (B-12) 1,000 MCG TABLET PO SCH (09:23)
[2021-03-29] MEDS: Lactulose Oral Soln 20 GM/30 ML UDC PO SCH ×2 (09:23→22:05)
[2021-03-29] MEDS: carvediloL 6.25 MG TABLET PO SCH ×2 (09:24→16:52)
[2021-03-29] MEDS: Apixaban 5 MG TABLET PO SCH ×2 (09:24→22:05)
[2021-03-29] MEDS: Cyanocobalamin (B-12) 1,000 MCG/ML VIAL SQ SCH (09:24)
[2021-03-29] MEDS: Nystatin POWDER 30 GM BOTTLE TP SCH ×2 (09:24→22:06)
[2021-03-29] MEDS: FLUoxetine 20 MG CAPSULE PO SCH (09:27)
[2021-03-29] MEDS: Insulin DETEMIR 100 UNIT/ML X5UNITS SUBQ SCH (22:05)
[2021-03-30 06:12] LABS: Hemoglobin 7.1 g/dL (11.5-15.4); Mean Corpuscular Volume 104.3 fL (83.0-100.0); White Blood Count 2.8 K/mcL (4.3-11.1)
[2021-03-30 06:13] LABS: Hematocrit 24.5 % (35.3-44.9); Immature Platelets 1.8 % (1.1-6.1); Mean Corpuscular Hemoglobin 30.2 pg (28.0-33.3); Mean Platelet Volume 9.4 fL (9.4-12.4); Red Blood Count 2.35 M/mcL (3.82-4.97); Red Cell Distribution Width 16.3 % (11.5-14.5)
[2021-03-30 06:34] LABS: Calcium 10.6 mg/dL (8.6-10.3); Potassium 5.1 mEq/L (3.5-5.1)
[2021-03-30] MEDS: Magnesium Oxide 400 MG TABLET PO SCH (08:06)
[2021-03-30] MEDS: carvediloL 6.25 MG TABLET PO SCH ×2 (08:06→17:53)
[2021-03-30] MEDS: Cyanocobalamin (B-12) 1,000 MCG TABLET PO SCH (08:06)
[2021-03-30] MEDS: FLUoxetine 20 MG CAPSULE PO SCH (08:06)
[2021-03-30] MEDS: Apixaban 5 MG TABLET PO SCH (08:06)
[2021-03-30] MEDS: polyethylene glycoL 3350 17 GM POWD.PACK PO SCH (08:07)
[2021-03-30] MEDS: Insulin LISPRO 300 UNITS/3 ML VIAL SUBQ SCH ×3 (08:07→17:02)
[2021-03-30] MEDS: Lactulose Oral Soln 20 GM/30 ML UDC PO SCH ×2 (08:07→20:06)
[2021-03-30] MEDS: Nystatin POWDER 30 GM BOTTLE TP SCH ×2 (09:11→20:07)
[2021-03-30] MEDS ORDERED: Iron Sucrose Complex 400 MG in 0.9 % Sodium Chloride 250 ML IVPB ONE (10:37)
[2021-03-30] MEDS ORDERED: Albumin 25% 25gram/100mL 25 GM/100 ML IV.SOLN IVPB ONE (10:50)
[2021-03-30] MEDS ORDERED: Furosemide 60 MG in 0.9 % Sodium Chloride 50 ML IVPB ONE (10:51)
[2021-03-30] MEDS: Ondansetron 4 MG/2 ML VIAL IVP PRN (13:59)
[2021-03-30] MEDS: Insulin DETEMIR 100 UNIT/ML X5UNITS SUBQ SCH (20:08)
[2021-03-31 01:49] LABS: Mean Corpuscular Volume 105.1 fL (83.0-100.0)
[2021-03-31 01:51] LABS: Hematocrit 24.9 % (35.3-44.9); Hemoglobin 7.2 g/dL (11.5-15.4); Immature Platelets 1.7 % (1.1-6.1); Mean Corpuscular HGB Conc 28.9 g/dL (31.6-35.5); Mean Corpuscular Hemoglobin 30.4 pg (28.0-33.3); Mean Platelet Volume 9.3 fL (9.4-12.4); Red Blood Count 2.37 M/mcL (3.82-4.97); Red Cell Distribution Width 16.2 % (11.5-14.5); White Blood Count 2.8 K/mcL (4.3-11.1)
[2021-03-31 02:12] LABS: Calcium 10.7 mg/dL (8.6-10.3); Potassium 5.2 mEq/L (3.5-5.1)
[2021-03-31] MEDS: Insulin LISPRO 300 UNITS/3 ML VIAL SUBQ SCH ×3 (08:51→17:37)
[2021-03-31] MEDS ORDERED: Heparin 1,000 UNITS/500 mL 500 ML ONE (09:15)
[2021-03-31] MEDS ORDERED: *HR* Heparin 5,000 UNIT/ML VIAL ONE (09:28)
[2021-03-31] MEDS ORDERED: 0.9 % Sodium Chloride 250 ML IVC PRN (09:54)
[2021-03-31] MEDS ORDERED: *HR* Heparin 10,000 UNIT/10 ML VIAL IV PRN (09:54)
[2021-03-31] MEDS: carvediloL 6.25 MG TABLET PO SCH ×2 (09:59→17:39)
[2021-03-31] MEDS: Lactulose Oral Soln 20 GM/30 ML UDC PO SCH ×2 (10:00→21:40)
[2021-03-31] MEDS ORDERED: 0.9 % Sodium Chloride 1,000 ML PRIME SCH (10:00)
[2021-03-31] MEDS: polyethylene glycoL 3350 17 GM POWD.PACK PO SCH (10:00)
[2021-03-31] MEDS ORDERED: Albumin 25% 25gram/100mL 25 GM/100 ML IV.SOLN ONE (11:40)
[2021-03-31 11:56] LABS: Hepatitis B Surface Antibody < 3.10 mIU/mL
[2021-03-31] MEDS ORDERED: Albumin 25% 25gram/100mL 25 GM/100 ML IV.SOLN IVPB ONE (12:00)
[2021-03-31 12:06] LABS: Hepatitis B Surface Antigen Nonreactive (Nonreactive)
[2021-03-31] MEDS ORDERED: Haloperidol Lactate 5 MG/ML VIAL IVP PRN (14:46)
[2021-03-31] MEDS: Nystatin POWDER 30 GM BOTTLE TP SCH ×2 (15:21→21:40)
[2021-03-31] MEDS: FLUoxetine 20 MG CAPSULE PO SCH (15:21)
[2021-03-31] MEDS: Magnesium Oxide 400 MG TABLET PO SCH (15:21)
[2021-03-31] MEDS: Cyanocobalamin (B-12) 1,000 MCG TABLET PO SCH (15:22)
[2021-03-31] MEDS: Insulin DETEMIR 100 UNIT/ML X5UNITS SUBQ SCH (23:02)
[2021-04-01 03:04] LABS: Immature Platelets 1.8 % (1.1-6.1); Mean Corpuscular HGB Conc 29.2 g/dL (31.6-35.5); Mean Corpuscular Hemoglobin 30.6 pg (28.0-33.3); Mean Corpuscular Volume 104.8 fL (83.0-100.0); Mean Platelet Volume 9.4 fL (9.4-12.4); Red Blood Count 2.29 M/mcL (3.82-4.97); Red Cell Distribution Width 16.6 % (11.5-14.5)
[2021-04-01 03:23] LABS: Calcium 10.6 mg/dL (8.6-10.3); Potassium 5.5 mEq/L (3.5-5.1)
[2021-04-01] MEDS: Insulin LISPRO 300 UNITS/3 ML VIAL SUBQ SCH ×3 (08:20→17:54)
[2021-04-01] MEDS: FLUoxetine 20 MG CAPSULE PO SCH (09:33)
[2021-04-01] MEDS: Cyanocobalamin (B-12) 1,000 MCG TABLET PO SCH (09:33)
[2021-04-01] MEDS: Magnesium Oxide 400 MG TABLET PO SCH (09:33)
[2021-04-01] MEDS: Metoprolol XL (24 HR) Succ 25 MG TAB.ER.24H PO SCH ×2 (09:33→09:45)
[2021-04-01] MEDS: polyethylene glycoL 3350 17 GM POWD.PACK PO SCH (09:34)
[2021-04-01] MEDS: Lactulose Oral Soln 20 GM/30 ML UDC PO SCH ×2 (09:34→21:30)
[2021-04-01] MEDS: Apixaban 5 MG TABLET PO SCH ×2 (09:34→21:29)
[2021-04-01] MEDS ORDERED: Perflutren Lipid Microsphere 1.3 ML in 0.9 % Sodium Chloride 8.7 ML IVP PRN (10:30)
[2021-04-01] MEDS: Nystatin POWDER 30 GM BOTTLE TP SCH ×2 (11:00→21:29)
[2021-04-01] MEDS ORDERED: Albumin 25% 25gram/100mL 25 GM/100 ML IV.SOLN IVPB PRN (11:16)
[2021-04-01] MEDS ORDERED: 0.9 % Sodium Chloride 250 ML IVC PRN (11:16)
[2021-04-01] MEDS ORDERED: *HR* Heparin 10,000 UNIT/10 ML VIAL IV PRN (11:16)
[2021-04-01] MEDS: Insulin DETEMIR 100 UNIT/ML X5UNITS SUBQ SCH (21:30)
[2021-04-02 03:00] LABS: Hemoglobin 8.1 g/dL (11.5-15.4); Red Cell Distribution Width 17.3 % (11.5-14.5)
[2021-04-02 03:02] LABS: Hematocrit 27.5 % (35.3-44.9); Immature Platelets 1.9 % (1.1-6.1); Mean Corpuscular HGB Conc 29.5 g/dL (31.6-35.5); Mean Corpuscular Hemoglobin 30.5 pg (28.0-33.3); Mean Corpuscular Volume 103.4 fL (83.0-100.0); Mean Platelet Volume 10.3 fL (9.4-12.4); Red Blood Count 2.66 M/mcL (3.82-4.97); White Blood Count 3.2 K/mcL (4.3-11.1)
[2021-04-02 03:18] LABS: Calcium 10.4 mg/dL (8.6-10.3); Potassium 4.9 mEq/L (3.5-5.1)
[2021-04-02] MEDS ORDERED: 0.9 % Sodium Chloride 250 ML IVC PRN (07:57)
[2021-04-02] MEDS ORDERED: *HR* Heparin 10,000 UNIT/10 ML VIAL IV PRN (07:57)
[2021-04-02] MEDS: Insulin LISPRO 300 UNITS/3 ML VIAL SUBQ SCH ×3 (09:23→16:24)
[2021-04-02] MEDS: Lactulose Oral Soln 20 GM/30 ML UDC PO SCH ×2 (09:37→21:16)
[2021-04-02] MEDS: polyethylene glycoL 3350 17 GM POWD.PACK PO SCH ×2 (09:37→09:51)
[2021-04-02] MEDS: Apixaban 5 MG TABLET PO SCH ×2 (09:38→21:16)
[2021-04-02] MEDS: FLUoxetine 20 MG CAPSULE PO SCH (09:38)
[2021-04-02] MEDS: Magnesium Oxide 400 MG TABLET PO SCH (09:38)
[2021-04-02] MEDS: Nystatin POWDER 30 GM BOTTLE TP SCH ×2 (09:39→21:16)
[2021-04-02] MEDS: Cyanocobalamin (B-12) 1,000 MCG TABLET PO SCH (09:42)
[2021-04-02] MEDS: Metoprolol XL (24 HR) Succ 25 MG TAB.ER.24H PO SCH (09:50)
[2021-04-02] MEDS: Insulin DETEMIR 100 UNIT/ML X5UNITS SUBQ SCH (21:17)
[2021-04-03 03:22] LABS: Hemoglobin 7.9 g/dL (11.5-15.4)
[2021-04-03 03:24] LABS: Hematocrit 26.6 % (35.3-44.9); Immature Platelets 1.8 % (1.1-6.1); Mean Corpuscular HGB Conc 29.7 g/dL (31.6-35.5); Mean Corpuscular Hemoglobin 30.7 pg (28.0-33.3); Mean Corpuscular Volume 103.5 fL (83.0-100.0); Mean Platelet Volume 9.7 fL (9.4-12.4); Red Blood Count 2.57 M/mcL (3.82-4.97); Red Cell Distribution Width 16.5 % (11.5-14.5); White Blood Count 3.2 K/mcL (4.3-11.1)
[2021-04-03 03:36] LABS: Calcium 10.3 mg/dL (8.6-10.3); Potassium 4.9 mEq/L (3.5-5.1)
[2021-04-03] MEDS: Insulin LISPRO 300 UNITS/3 ML VIAL SUBQ SCH ×3 (07:40→16:10)
[2021-04-03] MEDS ORDERED: *HR* Heparin 10,000 UNIT/10 ML VIAL IV PRN (08:26)
[2021-04-03] MEDS ORDERED: 0.9 % Sodium Chloride 250 ML IVC PRN (08:26)
[2021-04-03] MEDS: Apixaban 5 MG TABLET PO SCH (09:44)
[2021-04-03] MEDS: Cyanocobalamin (B-12) 1,000 MCG TABLET PO SCH (09:44)
[2021-04-03] MEDS: Lactulose Oral Soln 20 GM/30 ML UDC PO SCH ×2 (09:44→22:31)
[2021-04-03] MEDS: FLUoxetine 20 MG CAPSULE PO SCH (09:44)
[2021-04-03] MEDS: Nystatin POWDER 30 GM BOTTLE TP SCH (09:44)
[2021-04-03] MEDS: Magnesium Oxide 400 MG TABLET PO SCH (09:44)
[2021-04-03] MEDS: polyethylene glycoL 3350 17 GM POWD.PACK PO SCH (09:45)
[2021-04-03] MEDS: Metoprolol XL (24 HR) Succ 25 MG TAB.ER.24H PO SCH (09:45)
[2021-04-03] MEDS: Insulin DETEMIR 100 UNIT/ML X5UNITS SUBQ SCH (22:31)
[2021-04-04] MEDS: Nystatin POWDER 30 GM BOTTLE TP SCH ×2 (01:04→08:39)
[2021-04-04 06:06] LABS: Basophils % 0.3 %; Immature Granulocytes % 0.6 % (0-4)
[2021-04-04 06:07] LABS: Eosinophils # 0.1 K/mcL (0.0-0.6); Eosinophils % 2.9 %; Hematocrit 27.4 % (35.3-44.9); Hemoglobin 8.1 g/dL (11.5-15.4); Immature Platelets 1.4 % (1.1-6.1); Lymphocytes # 0.6 K/mcL (0.6-4.6); Lymphocytes % 17.4 %; Mean Corpuscular HGB Conc 29.6 g/dL (31.6-35.5); Mean Corpuscular Hemoglobin 30.5 pg (28.0-33.3); Mean Platelet Volume 9.7 fL (9.4-12.4); Monocytes # 0.4 K/mcL (0.0-1.3); Monocytes % 11.5 %; Neutrophils # 2.3 K/mcL (1.6-8.9); Red Blood Count 2.66 M/mcL (3.82-4.97); Red Cell Distribution Width 16.3 % (11.5-14.5); Segmented Neutrophils % 67.3 %; White Blood Count 3.4 K/mcL (4.3-11.1)
[2021-04-04 06:09] LABS: Platelet Count 90 K/mcL (140-400)
[2021-04-04 06:20] LABS: Calcium 10.7 mg/dL (8.6-10.3); Potassium 5.1 mEq/L (3.5-5.1)
[2021-04-04] MEDS: Insulin LISPRO 300 UNITS/3 ML VIAL SUBQ SCH ×3 (07:46→16:11)
[2021-04-04] MEDS: polyethylene glycoL 3350 17 GM POWD.PACK PO SCH (08:34)
[2021-04-04] MEDS: Cyanocobalamin (B-12) 1,000 MCG TABLET PO SCH (08:38)
[2021-04-04] MEDS: Metoprolol XL (24 HR) Succ 25 MG TAB.ER.24H PO SCH (08:38)
[2021-04-04] MEDS: Lactulose Oral Soln 20 GM/30 ML UDC PO SCH ×2 (08:38→22:06)
[2021-04-04] MEDS: FLUoxetine 20 MG CAPSULE PO SCH (08:38)
[2021-04-04] MEDS: Magnesium Oxide 400 MG TABLET PO SCH (08:39)
[2021-04-04] MEDS: Insulin DETEMIR 100 UNIT/ML X5UNITS SUBQ SCH (23:51)
[2021-04-05] MEDS: Nystatin POWDER 30 GM BOTTLE TP SCH ×2 (02:35→08:29)
[2021-04-05 06:04] LABS: Basophils % 0.6 %; Eosinophils # 0.1 K/mcL (0.0-0.6); Eosinophils % 2.8 %; Hematocrit 26.8 % (35.3-44.9); Hemoglobin 8.3 g/dL (11.5-15.4); Immature Granulocytes % 0.6 % (0-4); Lymphocytes # 0.7 K/mcL (0.6-4.6); Lymphocytes % 18.2 %; Mean Corpuscular Hemoglobin 31.4 pg (28.0-33.3); Mean Corpuscular Volume 101.5 fL (83.0-100.0); Mean Platelet Volume 8.9 fL (9.4-12.4); Monocytes # 0.4 K/mcL (0.0-1.3); Neutrophils # 2.4 K/mcL (1.6-8.9); Platelet Count 74 K/mcL (140-400); Red Blood Count 2.64 M/mcL (3.82-4.97); Red Cell Distribution Width 16.3 % (11.5-14.5); Segmented Neutrophils % 65.8 %; White Blood Count 3.6 K/mcL (4.3-11.1)
[2021-04-05 06:23] LABS: Potassium 4.8 mEq/L (3.5-5.1)
[2021-04-05] MEDS ORDERED: 0.9 % Sodium Chloride 250 ML IVC PRN (07:31)
[2021-04-05] MEDS: Insulin LISPRO 300 UNITS/3 ML VIAL SUBQ SCH ×3 (08:19→18:19)
[2021-04-05] MEDS: Cyanocobalamin (B-12) 1,000 MCG TABLET PO SCH (08:26)
[2021-04-05] MEDS: Metoprolol XL (24 HR) Succ 25 MG TAB.ER.24H PO SCH (08:27)
[2021-04-05] MEDS: Magnesium Oxide 400 MG TABLET PO SCH (08:27)
[2021-04-05] MEDS: FLUoxetine 20 MG CAPSULE PO SCH (08:27)
[2021-04-05] MEDS: Lactulose Oral Soln 20 GM/30 ML UDC PO SCH ×2 (08:27→21:56)
[2021-04-05] MEDS: polyethylene glycoL 3350 17 GM POWD.PACK PO SCH (08:30)
[2021-04-05 10:10] LABS: Calcium 10.6 mg/dL (8.6-10.3)
[2021-04-05] MEDS ORDERED: Albumin 25% 25gram/100mL 25 GM/100 ML IV.SOLN IVPB ONE (16:10)
[2021-04-05] MEDS ORDERED: Albumin 25% 25gram/100mL 25 GM/100 ML IV.SOLN ONE (16:14)
[2021-04-05] MEDS ORDERED: *HR* Heparin 10,000 UNIT/10 ML VIAL ONE (16:14)
[2021-04-05] MEDS: Insulin DETEMIR 100 UNIT/ML X5UNITS SUBQ SCH (23:08)
[2021-04-06] MEDS: Nystatin POWDER 30 GM BOTTLE TP SCH ×3 (05:00→20:07)
[2021-04-06 05:41] LABS: Calcium 10.4 mg/dL (8.6-10.3)
[2021-04-06] MEDS: Metoprolol XL (24 HR) Succ 25 MG TAB.ER.24H PO SCH (06:18)
[2021-04-06] MEDS: Insulin LISPRO 300 UNITS/3 ML VIAL SUBQ SCH ×3 (08:51→18:44)
[2021-04-06] MEDS: Lactulose Oral Soln 20 GM/30 ML UDC PO SCH ×2 (08:55→20:03)
[2021-04-06] MEDS: polyethylene glycoL 3350 17 GM POWD.PACK PO SCH (08:55)
[2021-04-06] MEDS: FLUoxetine 20 MG CAPSULE PO SCH (08:55)
[2021-04-06] MEDS: Cyanocobalamin (B-12) 1,000 MCG TABLET PO SCH (08:55)
[2021-04-06] MEDS: Magnesium Oxide 400 MG TABLET PO SCH (08:55)
[2021-04-06 12:03] LABS: Basophils % 0.6 %; Eosinophils # 0.1 K/mcL (0.0-0.6); Eosinophils % 3.7 %; Hematocrit 28.4 % (35.3-44.9); Hemoglobin 8.4 g/dL (11.5-15.4); Immature Granulocytes % 0.6 % (0-4); Lymphocytes # 0.5 K/mcL (0.6-4.6); Lymphocytes % 15.5 %; Mean Corpuscular HGB Conc 29.6 g/dL (31.6-35.5); Mean Corpuscular Hemoglobin 30.7 pg (28.0-33.3); Mean Corpuscular Volume 103.6 fL (83.0-100.0); Mean Platelet Volume 9.7 fL (9.4-12.4); Monocytes # 0.4 K/mcL (0.0-1.3); Monocytes % 11.5 %; Neutrophils # 2.4 K/mcL (1.6-8.9); Red Blood Count 2.74 M/mcL (3.82-4.97); Red Cell Distribution Width 16.1 % (11.5-14.5); Segmented Neutrophils % 68.1 %; White Blood Count 3.5 K/mcL (4.3-11.1)
[2021-04-06 12:08] LABS: Platelet Count 81 K/mcL (140-400)
[2021-04-06] MEDS ORDERED: *HR* Rocuronium Bromide 50 MG/5 ML VIAL ONE ×3 (12:40→15:59)
[2021-04-06] MEDS ORDERED: *HR* Etomidate 20 MG/10 ML AMPUL IVP ONE ×2 (12:41→15:59)
[2021-04-06] MEDS ORDERED: *HR* FentaNYL (PF) 250 MCG/5 ML VIAL ONE ×2 (12:41→15:59)
[2021-04-06] MEDS ORDERED: WATER IVP ONE (13:40)
[2021-04-06] MEDS ORDERED: CEFAZOLIN IVP ONE (13:40)
[2021-04-06] MEDS ORDERED: D5 IVP ONE (13:40)
[2021-04-06] MEDS ORDERED: ceFAZolin 2,000 MG in Water for inj. (sterile) 20 ML IVP ONE (14:00)
[2021-04-06] MEDS ORDERED: Albumin Human 5% 25.0 GM/500 ML IV.SOLN ONE (14:48)
[2021-04-06] MEDS ORDERED: Albumin Human 5% 25 GM/500 ML IV.SOLN IVPB ONE (15:00)
[2021-04-06] MEDS ORDERED: Naloxone 0.4 MG/ML INJ IVP PRN ×2 (15:17)
[2021-04-06] MEDS ORDERED: 0.9 % Sodium Chloride 250 ML ONE (15:22)
[2021-04-06] MEDS ORDERED: Morphine Sulfate 2 MG/ML SYRINGE IVP PRN (15:22)
[2021-04-06 15:32] LABS: Hemoglobin 7.4 g/dL (11.5-15.4); Red Cell Distribution Width 16.1 % (11.5-14.5)
[2021-04-06 15:34] LABS: Basophils % 0.6 %
[2021-04-06] MEDS: Ondansetron 4 MG/2 ML VIAL IVP PRN (15:36)
[2021-04-06 15:39] LABS: INR 1.9; Prothrombin Time 21.2 Seconds (9.4-12.1)
[2021-04-06 15:41] LABS: Eosinophils # 0.2 K/mcL (0.0-0.6); Hematocrit 25.1 % (35.3-44.9); Immature Granulocytes % 0.8 % (0-4); Immature Platelets 1.7 % (1.1-6.1); Mean Corpuscular HGB Conc 29.5 g/dL (31.6-35.5); Mean Corpuscular Hemoglobin 30.6 pg (28.0-33.3); Mean Corpuscular Volume 103.7 fL (83.0-100.0); Mean Platelet Volume 9.1 fL (9.4-12.4); Monocytes # 0.5 K/mcL (0.0-1.3); Monocytes % 10.7 %; Neutrophils # 3.2 K/mcL (1.6-8.9); Platelet Count 103 K/mcL (140-400); Red Blood Count 2.42 M/mcL (3.82-4.97); Segmented Neutrophils % 63.9 %
[2021-04-06 15:42] LABS: Activated Partial Thrombo Time 34.3 Seconds (26.0-36.0)
[2021-04-06 16:05] LABS: Adenovirus Not Detected (Not Detect); Coronavirus 229E Not Detected (Not Detect); Coronavirus HKU1 Not Detected (Not Detect); Coronavirus NL63 Not Detected (Not Detect)
[2021-04-06 16:06] LABS: Bordetella Pertussis Not Detected (Not Detect); Chlamydophila pneumoniae Not Detected (Not Detect); Coronavirus OC43 Not Detected (Not Detect); Human Metapneumovirus Not Detected (Not Detect); Human Rhinovirus/Enterovirus Not Detected (Not Detect); Influenza A Subtype 2009 H1 Not Detected (Not Detect); Influenza B Not Detected (Not Detect); Mycoplasma pneumoniae Not Detected (Not Detect); Parainfluenza Virus 1 Not Detected (Not Detect); Parainfluenza Virus 2 Not Detected (Not Detect); Parainfluenza Virus 3 Not Detected (Not Detect); Parainfluenza Virus 4 Not Detected (Not Detect); Respiratory Syncytial Virus Not Detected (Not Detect); SARS-CoV-2 Not Detected (Not Detect)
[2021-04-06] MEDS ORDERED: *HR* Norepinephrine 4 MG/4 ML VIAL IVC ONE ×2 (16:15→16:16)
[2021-04-06] MEDS ORDERED: EPINEPHrine 1 MG/ML VIAL ONE (16:16)
[2021-04-06 16:31] LABS: Calcium 9.8 mg/dL (8.6-10.3); Potassium 4.2 mEq/L (3.5-5.1)
[2021-04-06] MEDS ORDERED: ceFAZolin 2,000 MG in D5% in Water 100 ML IVPB ONE (16:50)
[2021-04-06] MEDS ORDERED: ceFAZolin 2,000 MG in 0.9 % Sodium Chloride 100 ML IVPB ONE (17:45)
[2021-04-06] MEDS ORDERED: Artificial Tears SOLN 15 ML BOTTLE BOTH EYES PRN (18:27)
[2021-04-06] MEDS: FentaNYL (PF) 1,000 MCG/100 ML IV.SOLN IVC SCH (19:10)
[2021-04-06] MEDS: Chlorhexidine Rinse 15 ML MOUTHWASH MM SCH (20:02)
[2021-04-06] MEDS: Artificial Tears SOLN 15 ML BOTTLE BOTH EYES SCH ×2 (20:02→23:22)
[2021-04-06] MEDS: 0.9 % Sodium Chloride 1,000 ML IVC SCH (20:03)
[2021-04-06] MEDS: Insulin DETEMIR 100 UNIT/ML X5UNITS SUBQ SCH (20:06)
[2021-04-06] MEDS: CeFAZolin 2 GM/120 ML BAG IVPB SCH (20:06)
[2021-04-06] MEDS: Pantoprazole 40 MG VIAL IVP SCH (20:09)
[2021-04-06 20:11] LABS: Basophils % 0.2 %; Eosinophils # 0.2 K/mcL (0.0-0.6); Eosinophils % 2.1 %; Hematocrit 31.6 % (35.3-44.9); Immature Granulocytes % 0.5 % (0-4); Lymphocytes # 1.3 K/mcL (0.6-4.6); Lymphocytes % 14.5 %; Mean Corpuscular HGB Conc 31.3 g/dL (31.6-35.5); Mean Corpuscular Hemoglobin 30.9 pg (28.0-33.3); Mean Corpuscular Volume 98.8 fL (83.0-100.0); Mean Platelet Volume 9.2 fL (9.4-12.4); Monocytes # 0.8 K/mcL (0.0-1.3); Monocytes % 9.2 %; Neutrophils # 6.3 K/mcL (1.6-8.9); Red Cell Distribution Width 16.6 % (11.5-14.5); Segmented Neutrophils % 73.5 %
[2021-04-06 20:12] LABS: Hemoglobin 9.9 g/dL (11.5-15.4); Platelet Count 83 K/mcL (140-400); White Blood Count 8.6 K/mcL (4.3-11.1)
[2021-04-06 20:18] LABS: VBG Ionized Calcium 1.21 mmol/L (1.15-1.35)
[2021-04-06 20:25] LABS: INR 1.6; Prothrombin Time 18.4 Seconds (9.4-12.1)
[2021-04-06 20:27] LABS: Activated Partial Thrombo Time 31.2 Seconds (26.0-36.0)
[2021-04-06 20:56] LABS: ABG Base Excess 5 mEq/L (-2 to 3); ABG HCO3 29 mEq/L (21-27); ABG Oxygen Saturation 96 % (95-98); ABG PCO2 43 mmHg (35-45); ABG PH 7.44 pH Units (7.32-7.45); ABG PO2 80 mmHg (85-104); ABG TCO2 31 mEq/L (20-26); Blood Gas Modality ASSIST CONTROL; Blood Gas VT 500 cc
[2021-04-06 21:13] LABS: Potassium 4.1 mEq/L (3.5-5.1)
[2021-04-06] MEDS: Budesonide/Formoterol 160/4.5 1 PUFF INH IH SCH (21:13)
[2021-04-06 22:14] LABS: Albumin 3.9 g/dL (3.5-5.7); Albumin/Globulin Ratio 2.1 (1.1-2.2); Bilirubin,Total 2.5 mg/dL (0.3-1.0); Calcium 9.7 mg/dL (8.6-10.3); Globulin 1.9 g/dL (2.4-3.5); Magnesium 2.4 mg/dL (1.6-2.6); Phosphorous 2.4 mg/dL (2.7-4.5); Total Protein 5.8 g/dL (6.4-8.9)
[2021-04-07 00:14] LABS: Lambda Qnt Free Light Chains 34.99 mg/L (5.71-26.30)
[2021-04-07] MEDS: Artificial Tears SOLN 15 ML BOTTLE BOTH EYES SCH ×6 (03:50→23:33)
[2021-04-07] MEDS: CeFAZolin 2 GM/120 ML BAG IVPB SCH (03:59)
[2021-04-07 04:29] LABS: ABG Base Excess 7 mEq/L (-2 to 3); ABG HCO3 29 mEq/L (21-27); ABG Oxygen Saturation 90 % (95-98); ABG PCO2 30 mmHg (35-45); ABG PO2 47 mmHg (85-104); ABG TCO2 30 mEq/L (20-26); Blood Gas Modality ASSIST CONTROL; Blood Gas VT 500 cc
[2021-04-07 04:39] LABS: Eosinophils % 2.1 %; Hemoglobin 8.9 g/dL (11.5-15.4); Mean Corpuscular Volume 96.9 fL (83.0-100.0)
[2021-04-07 04:41] LABS: Basophils % 0.3 %; Eosinophils # 0.2 K/mcL (0.0-0.6); Hematocrit 28.3 % (35.3-44.9); Immature Granulocytes % 0.8 % (0-4); Lymphocytes # 1.4 K/mcL (0.6-4.6); Mean Corpuscular HGB Conc 31.4 g/dL (31.6-35.5); Mean Corpuscular Hemoglobin 30.5 pg (28.0-33.3); Mean Platelet Volume 10.2 fL (9.4-12.4); Monocytes % 11.3 %; Neutrophils # 6.1 K/mcL (1.6-8.9); Red Blood Count 2.92 M/mcL (3.82-4.97); Red Cell Distribution Width 16.7 % (11.5-14.5); Segmented Neutrophils % 69.5 %; White Blood Count 8.8 K/mcL (4.3-11.1)
[2021-04-07 04:42] LABS: VBG Ionized Calcium 1.23 mmol/L (1.15-1.35)
[2021-04-07 04:48] LABS: INR 1.7; Prothrombin Time 19.9 Seconds (9.4-12.1)
[2021-04-07 04:49] LABS: Platelet Count 83 K/mcL (140-400)
[2021-04-07 04:50] LABS: Activated Partial Thrombo Time 30.5 Seconds (26.0-36.0); Albumin 3.4 g/dL (3.5-5.7); Albumin/Globulin Ratio 1.9 (1.1-2.2); Bilirubin,Direct 0.7 mg/dL (0.0-0.2); Bilirubin,Indirect 0.9 mg/dL (0.0-1.0); Bilirubin,Total 1.6 mg/dL (0.3-1.0); Globulin 1.8 g/dL (2.4-3.5); Total Protein 5.2 g/dL (6.4-8.9)
[2021-04-07 04:51] LABS: Albumin 3.4 g/dL (3.5-5.7); Albumin/Globulin Ratio 1.8 (1.1-2.2); Bilirubin,Total 1.6 mg/dL (0.3-1.0); Calcium 9.5 mg/dL (8.6-10.3); Globulin 1.9 g/dL (2.4-3.5); Magnesium 2.4 mg/dL (1.6-2.6); Phosphorous 1.5 mg/dL (2.7-4.5); Potassium 3.9 mEq/L (3.5-5.1); Total Protein 5.3 g/dL (6.4-8.9)
[2021-04-07] MEDS ORDERED: Potassium Phosphate 44 MEQ in 0.9 % Sodium Chloride 250 ML IVPB ONE (05:58)
[2021-04-07] MEDS: Budesonide/Formoterol 160/4.5 1 PUFF INH IH SCH ×2 (07:39→20:09)
[2021-04-07] MEDS: Insulin LISPRO 300 UNITS/3 ML VIAL SUBQ SCH ×4 (08:00→23:33)
[2021-04-07] MEDS: Magnesium Oxide 400 MG TABLET PO SCH (08:01)
[2021-04-07] MEDS: Lactulose Oral Soln 20 GM/30 ML UDC PO SCH (08:01)
[2021-04-07] MEDS: polyethylene glycoL 3350 17 GM POWD.PACK PO SCH (08:01)
[2021-04-07] MEDS: Cyanocobalamin (B-12) 1,000 MCG TABLET PO SCH (08:02)
[2021-04-07] MEDS: FLUoxetine 20 MG CAPSULE PO SCH (08:02)
[2021-04-07] MEDS: Metoprolol XL (24 HR) Succ 25 MG TAB.ER.24H PO SCH (08:02)
[2021-04-07] MEDS: Nystatin POWDER 30 GM BOTTLE TP SCH ×2 (08:02→20:17)
[2021-04-07] MEDS: Chlorhexidine Rinse 15 ML MOUTHWASH MM SCH ×2 (08:10→20:17)
[2021-04-07] MEDS: Pantoprazole 40 MG VIAL IVP SCH (08:10)
[2021-04-07] MEDS: Albumin Human 5% 12.5 GM/250 ML IV.SOLN IVC SCH ×2 (08:24→12:35)
[2021-04-07 11:03] LABS: Kappa Qnt Free Light Chains 128.09 mg/L (3.30-19.40)
[2021-04-07] MEDS: 0.9 % Sodium Chloride 1,000 ML IVC SCH ×2 (11:11→23:33)
[2021-04-07 11:13] LABS: Basophils % 0.3 %; Eosinophils % 1.5 %; Immature Granulocytes % 0.7 % (0-4)
[2021-04-07 11:14] LABS: Eosinophils # 0.1 K/mcL (0.0-0.6); Hematocrit 25.8 % (35.3-44.9); Hemoglobin 8.2 g/dL (11.5-15.4); Lymphocytes % 17.3 %; Mean Corpuscular HGB Conc 31.8 g/dL (31.6-35.5); Mean Corpuscular Hemoglobin 30.8 pg (28.0-33.3); Mean Platelet Volume 9.5 fL (9.4-12.4); Monocytes # 0.9 K/mcL (0.0-1.3); Monocytes % 11.8 %; Neutrophils # 4.9 K/mcL (1.6-8.9); Red Blood Count 2.66 M/mcL (3.82-4.97); Red Cell Distribution Width 16.7 % (11.5-14.5); Segmented Neutrophils % 68.4 %; White Blood Count 7.2 K/mcL (4.3-11.1)
[2021-04-07 11:19] LABS: INR 1.9
[2021-04-07 11:32] LABS: Lymphocytes # 1.3 K/mcL (0.6-4.6); Platelet Count 67 K/mcL (140-400)
[2021-04-07] MEDS ORDERED: 0.9 % Sodium Chloride 250 ML ONE (12:06)
[2021-04-07] MEDS: FentaNYL (PF) 1,000 MCG/100 ML IV.SOLN IVC SCH (15:30)
[2021-04-07 20:00] LABS: Basophils % 0.2 %; Hematocrit 25.1 % (35.3-44.9); Mean Corpuscular HGB Conc 31.9 g/dL (31.6-35.5); Mean Corpuscular Hemoglobin 30.5 pg (28.0-33.3); Mean Corpuscular Volume 95.8 fL (83.0-100.0); Red Blood Count 2.62 M/mcL (3.82-4.97)
[2021-04-07 20:02] LABS: Eosinophils # 0.1 K/mcL (0.0-0.6); Eosinophils % 1.2 %; Immature Granulocytes % 0.7 % (0-4); Immature Platelets 1.6 % (1.1-6.1); Lymphocytes # 0.8 K/mcL (0.6-4.6); Mean Platelet Volume 9.4 fL (9.4-12.4); Monocytes # 0.7 K/mcL (0.0-1.3); Monocytes % 11.4 %; Neutrophils # 4.3 K/mcL (1.6-8.9); Segmented Neutrophils % 72.5 %; White Blood Count 5.9 K/mcL (4.3-11.1)
[2021-04-07 20:06] LABS: Platelet Count 71 K/mcL (140-400)
[2021-04-07 20:08] LABS: INR 1.9; Prothrombin Time 21.6 Seconds (9.4-12.1)
[2021-04-07] MEDS: Insulin DETEMIR 100 UNIT/ML X5UNITS SUBQ SCH (20:17)
[2021-04-07 23:44] LABS: Basophils % 0.2 %; Eosinophils # 0.1 K/mcL (0.0-0.6); Hematocrit 25.3 % (35.3-44.9); Immature Granulocytes % 0.9 % (0-4); Lymphocytes # 0.8 K/mcL (0.6-4.6); Lymphocytes % 13.1 %; Mean Corpuscular HGB Conc 31.6 g/dL (31.6-35.5); Mean Corpuscular Hemoglobin 30.1 pg (28.0-33.3); Mean Corpuscular Volume 95.1 fL (83.0-100.0); Mean Platelet Volume 9.8 fL (9.4-12.4); Monocytes # 0.6 K/mcL (0.0-1.3); Monocytes % 10.7 %; Neutrophils # 4.3 K/mcL (1.6-8.9); Red Blood Count 2.66 M/mcL (3.82-4.97); Red Cell Distribution Width 17.2 % (11.5-14.5); Segmented Neutrophils % 74.1 %; White Blood Count 5.8 K/mcL (4.3-11.1)
[2021-04-07 23:45] LABS: Platelet Count 73 K/mcL (140-400)
[2021-04-08 04:07] LABS: ABG Base Excess 5 mEq/L (-2 to 3); ABG HCO3 29 mEq/L (21-27); ABG Oxygen Saturation 97 % (95-98); ABG PCO2 38 mmHg (35-45); ABG PH 7.48 pH Units (7.32-7.45); ABG PO2 83 mmHg (85-104); ABG TCO2 30 mEq/L (20-26); Blood Gas VT 400 cc
[2021-04-08 04:40] LABS: Basophils % 0.2 %; Eosinophils % 1.2 %; Immature Granulocytes % 0.7 % (0-4)
[2021-04-08 04:42] LABS: Eosinophils # 0.1 K/mcL (0.0-0.6); Hematocrit 25.2 % (35.3-44.9); Immature Platelets 1.6 % (1.1-6.1); Lymphocytes # 0.7 K/mcL (0.6-4.6); Lymphocytes % 11.4 %; Mean Corpuscular HGB Conc 31.7 g/dL (31.6-35.5); Mean Corpuscular Hemoglobin 30.2 pg (28.0-33.3); Mean Corpuscular Volume 95.1 fL (83.0-100.0); Mean Platelet Volume 10.3 fL (9.4-12.4); Monocytes # 0.6 K/mcL (0.0-1.3); Monocytes % 10.2 %; Neutrophils # 4.5 K/mcL (1.6-8.9); Platelet Count 73 K/mcL (140-400); Red Blood Count 2.65 M/mcL (3.82-4.97); Segmented Neutrophils % 76.3 %; White Blood Count 5.9 K/mcL (4.3-11.1)
[2021-04-08 04:57] LABS: Calcium 9.6 mg/dL (8.6-10.3); Magnesium 2.4 mg/dL (1.6-2.6); Phosphorous 3.7 mg/dL (2.7-4.5)
[2021-04-08] MEDS: Artificial Tears SOLN 15 ML BOTTLE BOTH EYES SCH ×6 (05:02→23:51)
[2021-04-08] MEDS: Insulin LISPRO 300 UNITS/3 ML VIAL SUBQ SCH ×4 (05:03→23:51)
[2021-04-08 06:18] LABS: VBG Ionized Calcium 1.25 mmol/L (1.15-1.35)
[2021-04-08] MEDS: FLUoxetine 20 MG CAPSULE PO SCH (07:43)
[2021-04-08] MEDS: Cyanocobalamin (B-12) 1,000 MCG TABLET PO SCH (07:43)
[2021-04-08] MEDS: Budesonide/Formoterol 160/4.5 1 PUFF INH IH SCH ×2 (09:12→21:57)
[2021-04-08] MEDS: Chlorhexidine Rinse 15 ML MOUTHWASH MM SCH ×2 (09:13→20:49)
[2021-04-08] MEDS: Pantoprazole 40 MG VIAL IVP SCH (09:13)
[2021-04-08] MEDS: Nystatin POWDER 30 GM BOTTLE TP SCH ×2 (09:13→20:55)
[2021-04-08] MEDS ORDERED: Albumin 25% 25gram/100mL 25 GM/100 ML IV.SOLN IVPB PRN (09:29)
[2021-04-08] MEDS ORDERED: 0.9 % Sodium Chloride 250 ML IVC PRN (09:29)
[2021-04-08] MEDS ORDERED: 0.9 % Sodium Chloride 1,000 ML PRIME SCH (09:30)
[2021-04-08 16:17] LABS: Alpha 2 Globulin (PEP) 0.52 g/dL (0.48-1.05)
[2021-04-08] MEDS: FentaNYL (PF) 1,000 MCG/100 ML IV.SOLN IVC SCH (20:35)
[2021-04-08] MEDS: Insulin DETEMIR 100 UNIT/ML X5UNITS SUBQ SCH (20:54)
[2021-04-09 04:19] LABS: Eosinophils % 1.7 %; Hemoglobin 7.7 g/dL (11.5-15.4); Lymphocytes % 9.5 %; Red Cell Distribution Width 16.2 % (11.5-14.5)
[2021-04-09 04:21] LABS: Basophils % 0.2 %; Eosinophils # 0.1 K/mcL (0.0-0.6); Hematocrit 24.8 % (35.3-44.9); Immature Granulocytes % 0.4 % (0-4); Lymphocytes # 0.5 K/mcL (0.6-4.6); Mean Corpuscular Hemoglobin 30.8 pg (28.0-33.3); Mean Corpuscular Volume 99.2 fL (83.0-100.0); Mean Platelet Volume 9.8 fL (9.4-12.4); Monocytes # 0.6 K/mcL (0.0-1.3); Monocytes % 11.6 %; Segmented Neutrophils % 76.6 %; White Blood Count 5.2 K/mcL (4.3-11.1)
[2021-04-09 04:23] LABS: Platelet Count 74 K/mcL (140-400)
[2021-04-09 04:28] LABS: INR 1.5; Prothrombin Time 17.4 Seconds (9.4-12.1)
[2021-04-09 04:39] LABS: Potassium 3.7 mEq/L (3.5-5.1)
[2021-04-09] MEDS: Insulin LISPRO 300 UNITS/3 ML VIAL SUBQ SCH ×4 (05:45→20:41)
[2021-04-09 06:56] LABS: IFE Reflexed NOT DONE
[2021-04-09] MEDS: Budesonide/Formoterol 160/4.5 1 PUFF INH IH SCH ×2 (07:48→22:56)
[2021-04-09] MEDS: FLUoxetine 20 MG CAPSULE PO SCH (08:01)
[2021-04-09] MEDS: Chlorhexidine Rinse 15 ML MOUTHWASH MM SCH (08:01)
[2021-04-09] MEDS: Cyanocobalamin (B-12) 1,000 MCG TABLET PO SCH (08:01)
[2021-04-09] MEDS: Pantoprazole 40 MG VIAL IVP SCH (08:01)
[2021-04-09] MEDS: Nystatin POWDER 30 GM BOTTLE TP SCH (08:06)
[2021-04-09] MEDS ORDERED: Furosemide 20 MG/2 ML VIAL IVP ONE (11:06)
[2021-04-09] MEDS ORDERED: Naloxone 0.4 MG/ML INJ IVP PRN (11:38)
[2021-04-09] MEDS ORDERED: Dextrose Gel 15 GM/37.5 ML TUBE PO PRN ×2 (11:38)
[2021-04-09] MEDS ORDERED: *HR* Dextrose 50 % in Water (Vial) 50 ML VIAL IVP PRN (11:38)
[2021-04-09] MEDS ORDERED: Albumin 25% 25gram/100mL 25 GM/100 ML IV.SOLN IVPB PRN (11:38)
[2021-04-09] MEDS ORDERED: D5% in Water 1,000 ML IVC PRN (11:38)
[2021-04-09] MEDS ORDERED: 0.9 % Sodium Chloride 250 ML IVC PRN ×2 (11:38)
[2021-04-09] MEDS ORDERED: Insulin LISPRO 300 UNITS/3 ML VIAL SUBQ SCH ×2 (12:00→21:00)
[2021-04-09] MEDS: Insulin DETEMIR 100 UNIT/ML X5UNITS SUBQ SCH (20:42)
[2021-04-10 05:29] LABS: Basophils % 0.3 %; Eosinophils % 2.2 %
[2021-04-10 05:31] LABS: Eosinophils # 0.1 K/mcL (0.0-0.6); Hematocrit 23.3 % (35.3-44.9); Immature Granulocytes % 0.5 % (0-4); Immature Platelets 2.6 % (1.1-6.1); Lymphocytes # 0.4 K/mcL (0.6-4.6); Mean Platelet Volume 9.5 fL (9.4-12.4); Monocytes # 0.5 K/mcL (0.0-1.3); Monocytes % 12.1 %; Red Blood Count 2.33 M/mcL (3.82-4.97); Red Cell Distribution Width 15.8 % (11.5-14.5); Segmented Neutrophils % 73.9 %; White Blood Count 3.7 K/mcL (4.3-11.1)
[2021-04-10 05:33] LABS: Neutrophils # 2.7 K/mcL (1.6-8.9); Platelet Count 84 K/mcL (140-400)
[2021-04-10 05:34] LABS: VBG Ionized Calcium 1.41 mmol/L (1.15-1.35)
[2021-04-10 05:41] LABS: INR 1.4; Prothrombin Time 15.8 Seconds (9.4-12.1)
[2021-04-10 05:42] LABS: Activated Partial Thrombo Time 30.5 Seconds (26.0-36.0)
[2021-04-10 05:54] LABS: Calcium 10.5 mg/dL (8.6-10.3)
[2021-04-10 06:02] LABS: Alanine Aminotransferase < 3 Units/L (7-52); Albumin 3.7 g/dL (3.5-5.7); Albumin/Globulin Ratio 1.7 (1.1-2.2); Alkaline Phosphatase 89 Units/L (34-104); Aspartate Amino Transferase 20 Units/L (13-39); Bilirubin,Direct 0.6 mg/dL (0.0-0.2); Bilirubin,Indirect 0.7 mg/dL (0.0-1.0); Bilirubin,Total 1.3 mg/dL (0.3-1.0); Globulin 2.2 g/dL (2.4-3.5); Magnesium 2.2 mg/dL (1.6-2.6); Phosphorous 3.8 mg/dL (2.7-4.5); Total Protein 5.9 g/dL (6.4-8.9)
[2021-04-10] MEDS: Nystatin POWDER 30 GM BOTTLE TP SCH ×3 (06:21→20:03)
[2021-04-10] MEDS: FLUoxetine 20 MG CAPSULE PO SCH (08:14)
[2021-04-10] MEDS: Cyanocobalamin (B-12) 1,000 MCG TABLET PO SCH (08:14)
[2021-04-10] MEDS ORDERED: Pantoprazole 40 MG VIAL IVP SCH (09:00)
[2021-04-10] MEDS: Insulin LISPRO 300 UNITS/3 ML VIAL SUBQ SCH ×4 (09:08→20:02)
[2021-04-10] MEDS: Budesonide/Formoterol 160/4.5 1 PUFF INH IH SCH ×2 (11:12→19:53)
[2021-04-10] MEDS: *HR* OxyCODONE Immed Rel 5 MG TABLET PO PRN (17:49)
[2021-04-10] MEDS: Insulin DETEMIR 100 UNIT/ML X5UNITS SUBQ SCH (20:03)
[2021-04-11 05:49] LABS: INR 1.3; Prothrombin Time 14.4 Seconds (9.4-12.1)
[2021-04-11 06:05] LABS: % Iron Saturation 18 % (15-50); Alanine Aminotransferase < 3 Units/L (7-52); Albumin 3.8 g/dL (3.5-5.7); Albumin/Globulin Ratio 1.8 (1.1-2.2); Alkaline Phosphatase 87 Units/L (34-104); Aspartate Amino Transferase 20 Units/L (13-39); BUN/Creatinine Ratio 18 (6-26); Bilirubin,Total 1.3 mg/dL (0.3-1.0); Blood Urea Nitrogen 49 mg/dL (8-23); Calcium 10.8 mg/dL (8.6-10.3); Carbon Dioxide 35 mEq/L (23-29); Chloride 100 mEq/L (98-107); Globulin 2.1 g/dL (2.4-3.5); Glucose 129 mg/dL (70-105); Iron 33 mcg/dL (50-170); Magnesium 2.3 mg/dL (1.6-2.6); Osmolality,Calculated 307 (280-300); Phosphorous 3.2 mg/dL (2.7-4.5); Potassium 3.8 mEq/L (3.5-5.1); Sodium 141 mEq/L (136-145); Total Protein 5.9 g/dL (6.4-8.9); Transferrin 132 mg/dL (203-362); eGFR For African Americans 21 (> 60); eGFR For Non-African Americans 17 (> 60)
[2021-04-11] MEDS ORDERED: Iron Sucrose Complex 400 MG in 0.9 % Sodium Chloride 250 ML IVPB ONE (07:37)
[2021-04-11] MEDS: Insulin LISPRO 300 UNITS/3 ML VIAL SUBQ SCH ×4 (07:50→22:56)
[2021-04-11] MEDS: Cyanocobalamin (B-12) 1,000 MCG TABLET PO SCH (10:34)
[2021-04-11] MEDS: FLUoxetine 20 MG CAPSULE PO SCH (10:34)
[2021-04-11] MEDS: Nystatin POWDER 30 GM BOTTLE TP SCH ×2 (10:36→22:57)
[2021-04-11 10:45] LABS: Mean Corpuscular Volume 101.2 fL (83.0-100.0)
[2021-04-11 10:47] LABS: Basophils % 0.3 %; Eosinophils # 0.1 K/mcL (0.0-0.6); Eosinophils % 4.2 %; Hematocrit 24.7 % (35.3-44.9); Hemoglobin 7.3 g/dL (11.5-15.4); Immature Granulocytes % 0.6 % (0-4); Immature Platelets 2.1 % (1.1-6.1); Lymphocytes # 0.5 K/mcL (0.6-4.6); Lymphocytes % 16.3 %; Mean Corpuscular HGB Conc 29.6 g/dL (31.6-35.5); Mean Corpuscular Hemoglobin 29.9 pg (28.0-33.3); Mean Platelet Volume 9.7 fL (9.4-12.4); Monocytes # 0.4 K/mcL (0.0-1.3); Monocytes % 12.8 %; Platelet Count 109 K/mcL (140-400); Red Blood Count 2.44 M/mcL (3.82-4.97); Red Cell Distribution Width 15.4 % (11.5-14.5); Segmented Neutrophils % 65.8 %; White Blood Count 3.1 K/mcL (4.3-11.1)
[2021-04-11] MEDS: Budesonide/Formoterol 160/4.5 1 PUFF INH IH SCH ×2 (10:57→21:26)
[2021-04-11] MEDS: Calcitonin-Salmon, Synthetic 400 UNIT/2 ML VIAL SQ SCH ×2 (11:03→22:57)
[2021-04-11] MEDS: Ipratropium/Albuterol Neb 3 ML IH SCH ×2 (17:19→21:26)
[2021-04-11] MEDS: Chlorhexidine Rinse 15 ML MOUTHWASH MM SCH (22:56)
[2021-04-11] MEDS: Insulin DETEMIR 100 UNIT/ML X5UNITS SUBQ SCH (22:56)
[2021-04-12 02:24] LABS: Basophils % 0.5 %; Eosinophils # 0.1 K/mcL (0.0-0.6); Eosinophils % 2.2 %; Hematocrit 29.2 % (35.3-44.9); Immature Granulocytes % 1.7 % (0-4); Lymphocytes # 0.5 K/mcL (0.6-4.6); Lymphocytes % 12.3 %; Mean Corpuscular HGB Conc 30.8 g/dL (31.6-35.5); Mean Corpuscular Hemoglobin 29.9 pg (28.0-33.3); Mean Platelet Volume 9.3 fL (9.4-12.4); Monocytes # 0.5 K/mcL (0.0-1.3); Monocytes % 13.1 %; Neutrophils # 2.9 K/mcL (1.6-8.9); Platelet Count 120 K/mcL (140-400); Red Blood Count 3.01 M/mcL (3.82-4.97); Red Cell Distribution Width 16.7 % (11.5-14.5); Segmented Neutrophils % 70.2 %; White Blood Count 4.1 K/mcL (4.3-11.1)
[2021-04-12 02:32] LABS: INR 1.3; Prothrombin Time 15.3 Seconds (9.4-12.1)
[2021-04-12 02:48] LABS: Alanine Aminotransferase < 3 Units/L (7-52); Albumin 3.7 g/dL (3.5-5.7); Albumin/Globulin Ratio 1.4 (1.1-2.2); Alkaline Phosphatase 92 Units/L (34-104); Aspartate Amino Transferase 20 Units/L (13-39); BUN/Creatinine Ratio 22 (6-26); Blood Urea Nitrogen 51 mg/dL (8-23); Calcium 10.5 mg/dL (8.6-10.3); Carbon Dioxide 32 mEq/L (23-29); Chloride 99 mEq/L (98-107); Globulin 2.6 g/dL (2.4-3.5); Glucose 155 mg/dL (70-105); Magnesium 2.1 mg/dL (1.6-2.6); Osmolality,Calculated 307 (280-300); Phosphorous 2.5 mg/dL (2.7-4.5); Potassium 3.9 mEq/L (3.5-5.1); Sodium 140 mEq/L (136-145); Total Protein 6.3 g/dL (6.4-8.9); eGFR For African Americans 24 (> 60); eGFR For Non-African Americans 20 (> 60)
[2021-04-12 02:55] LABS: Estimated Average Glucose 114 mg/dl; Hemoglobin A1C 5.6 %
[2021-04-12 03:07] LABS: Folate 6.7 ng/mL (3.0-16.0)
[2021-04-12 03:17] LABS: Vitamin B12 > 1500 pg/mL (250-1100)
[2021-04-12] MEDS: Ipratropium/Albuterol Neb 3 ML IH SCH ×4 (03:26→22:10)
[2021-04-12] MEDS: Calcitonin-Salmon, Synthetic 400 UNIT/2 ML VIAL SQ SCH ×3 (07:15→19:37)
[2021-04-12] MEDS: FLUoxetine 20 MG CAPSULE PO SCH (08:51)
[2021-04-12] MEDS: Cyanocobalamin (B-12) 1,000 MCG TABLET PO SCH (08:51)
[2021-04-12] MEDS: Insulin LISPRO 300 UNITS/3 ML VIAL SUBQ SCH ×4 (08:52→21:57)
[2021-04-12] MEDS: Nystatin POWDER 30 GM BOTTLE TP SCH ×2 (08:52→19:38)
[2021-04-12] MEDS: Chlorhexidine Rinse 15 ML MOUTHWASH MM SCH ×2 (08:52→19:37)
[2021-04-12] MEDS: Budesonide/Formoterol 160/4.5 1 PUFF INH IH SCH ×2 (10:02→22:10)
[2021-04-12] MEDS: Insulin DETEMIR 100 UNIT/ML X5UNITS SUBQ SCH (21:57)
[2021-04-13] MEDS: Ipratropium/Albuterol Neb 3 ML IH SCH ×4 (03:25→22:04)
[2021-04-13 05:59] LABS: Basophils % 0.4 %; Eosinophils # 0.1 K/mcL (0.0-0.6); Eosinophils % 1.1 %; Hematocrit 27.1 % (35.3-44.9); Hemoglobin 8.8 g/dL (11.5-15.4); Immature Granulocytes % 2.2 % (0-4); Lymphocytes # 0.7 K/mcL (0.6-4.6); Lymphocytes % 14.6 %; Mean Corpuscular HGB Conc 32.5 g/dL (31.6-35.5); Mean Corpuscular Hemoglobin 31.3 pg (28.0-33.3); Mean Corpuscular Volume 96.4 fL (83.0-100.0); Mean Platelet Volume 9.5 fL (9.4-12.4); Monocytes # 0.5 K/mcL (0.0-1.3); Monocytes % 10.5 %; Neutrophils # 3.3 K/mcL (1.6-8.9); Platelet Count 156 K/mcL (140-400); Red Blood Count 2.81 M/mcL (3.82-4.97); Red Cell Distribution Width 15.9 % (11.5-14.5); Segmented Neutrophils % 71.2 %; White Blood Count 4.6 K/mcL (4.3-11.1)
[2021-04-13 06:08] LABS: INR 1.3; Prothrombin Time 14.6 Seconds (9.4-12.1)
[2021-04-13 06:21] LABS: Alanine Aminotransferase < 3 Units/L (7-52); Albumin 3.8 g/dL (3.5-5.7); Albumin/Globulin Ratio 1.8 (1.1-2.2); Alkaline Phosphatase 88 Units/L (34-104); Aspartate Amino Transferase 19 Units/L (13-39); BUN/Creatinine Ratio 25 (6-26); Bilirubin,Total 1.5 mg/dL (0.3-1.0); Blood Urea Nitrogen 55 mg/dL (8-23); Calcium 10.3 mg/dL (8.6-10.3); Carbon Dioxide 34 mEq/L (23-29); Chloride 99 mEq/L (98-107); Globulin 2.1 g/dL (2.4-3.5); Glucose 162 mg/dL (70-105); Osmolality,Calculated 311 (280-300); Phosphorous 2.1 mg/dL (2.7-4.5); Sodium 141 mEq/L (136-145); Total Protein 5.9 g/dL (6.4-8.9); eGFR For African Americans 26 (> 60); eGFR For Non-African Americans 21 (> 60)
[2021-04-13] MEDS: Renal Vitamin 1 CAP CAPSULE PO SCH (07:34)
[2021-04-13] MEDS: *HR* OxyCODONE Immed Rel 5 MG TABLET PO PRN (07:34)
[2021-04-13] MEDS: Insulin LISPRO 300 UNITS/3 ML VIAL SUBQ SCH ×4 (07:35→20:19)
[2021-04-13] MEDS: Chlorhexidine Rinse 15 ML MOUTHWASH MM SCH ×2 (07:35→21:07)
[2021-04-13] MEDS: FLUoxetine 20 MG CAPSULE PO SCH (07:35)
[2021-04-13] MEDS: Ondansetron 4 MG/2 ML VIAL IVP PRN (07:36)
[2021-04-13] MEDS: Nystatin POWDER 30 GM BOTTLE TP SCH ×2 (07:36→20:53)
[2021-04-13] MEDS: Calcitonin-Salmon, Synthetic 400 UNIT/2 ML VIAL SQ SCH ×2 (07:38→20:53)
[2021-04-13] MEDS: Furosemide 20 MG TABLET PO SCH (10:17)
[2021-04-13] MEDS: Budesonide/Formoterol 160/4.5 1 PUFF INH IH SCH ×2 (11:23→22:04)
[2021-04-13] MEDS: Insulin DETEMIR 100 UNIT/ML X5UNITS SUBQ SCH (20:53)
[2021-04-14 02:49] LABS: Hematocrit 28.7 % (35.3-44.9); Hemoglobin 8.6 g/dL (11.5-15.4); Mean Corpuscular Hemoglobin 30.2 pg (28.0-33.3); Mean Corpuscular Volume 100.7 fL (83.0-100.0); Mean Platelet Volume 8.6 fL (9.4-12.4); Platelet Count 146 K/mcL (140-400); Red Blood Count 2.85 M/mcL (3.82-4.97); Red Cell Distribution Width 16.2 % (11.5-14.5); White Blood Count 5.1 K/mcL (4.3-11.1)
[2021-04-14 03:06] LABS: Phosphorous 3.1 mg/dL (2.7-4.5)
[2021-04-14 03:07] LABS: Potassium 4.4 mEq/L (3.5-5.1)
[2021-04-14] MEDS: Ipratropium/Albuterol Neb 3 ML IH SCH ×4 (04:37→21:32)
[2021-04-14] MEDS: Insulin LISPRO 300 UNITS/3 ML VIAL SUBQ SCH ×4 (08:50→22:07)
[2021-04-14] MEDS: Chlorhexidine Rinse 15 ML MOUTHWASH MM SCH ×2 (08:52→20:53)
[2021-04-14] MEDS: FLUoxetine 20 MG CAPSULE PO SCH (08:52)
[2021-04-14] MEDS: Renal Vitamin 1 CAP CAPSULE PO SCH (08:52)
[2021-04-14] MEDS: Furosemide 20 MG TABLET PO SCH (08:52)
[2021-04-14] MEDS: Nystatin POWDER 30 GM BOTTLE TP SCH ×2 (08:53→20:54)
[2021-04-14] MEDS: *HR* OxyCODONE Immed Rel 5 MG TABLET PO PRN (08:58)
[2021-04-14] MEDS: Calcitonin-Salmon, Synthetic 400 UNIT/2 ML VIAL SQ SCH (09:22)
[2021-04-14] MEDS: Budesonide/Formoterol 160/4.5 1 PUFF INH IH SCH ×2 (09:41→21:31)
[2021-04-14] MEDS: polyethylene glycoL 3350 17 GM POWD.PACK PO SCH (15:24)
[2021-04-14] MEDS: Sennosides/Docusate Sodium TABLET PO SCH (20:53)
[2021-04-14] MEDS: Insulin DETEMIR 100 UNIT/ML X5UNITS SUBQ SCH (22:07)
[2021-04-15] MEDS: Ipratropium/Albuterol Neb 3 ML IH SCH ×4 (04:05→21:43)
[2021-04-15 08:07] LABS: Hematocrit 30.3 % (35.3-44.9); Hemoglobin 9.3 g/dL (11.5-15.4); Mean Corpuscular HGB Conc 30.7 g/dL (31.6-35.5); Mean Corpuscular Volume 97.7 fL (83.0-100.0); Mean Platelet Volume 8.8 fL (9.4-12.4); Platelet Count 172 K/mcL (140-400); Red Cell Distribution Width 16.1 % (11.5-14.5); White Blood Count 5.3 K/mcL (4.3-11.1)
[2021-04-15 08:55] LABS: Calcium 10.5 mg/dL (8.6-10.3); Phosphorous 2.6 mg/dL (2.7-4.5); Potassium 4.6 mEq/L (3.5-5.1)
[2021-04-15] MEDS: Insulin LISPRO 300 UNITS/3 ML VIAL SUBQ SCH ×4 (09:27→21:01)
[2021-04-15] MEDS: Sennosides/Docusate Sodium TABLET PO SCH ×2 (09:27→20:55)
[2021-04-15] MEDS: Furosemide 20 MG TABLET PO SCH (09:27)
[2021-04-15] MEDS: Chlorhexidine Rinse 15 ML MOUTHWASH MM SCH ×2 (09:27→20:55)
[2021-04-15] MEDS: FLUoxetine 20 MG CAPSULE PO SCH (09:27)
[2021-04-15] MEDS: Renal Vitamin 1 CAP CAPSULE PO SCH (09:27)
[2021-04-15] MEDS: polyethylene glycoL 3350 17 GM POWD.PACK PO SCH (09:27)
[2021-04-15] MEDS: Nystatin POWDER 30 GM BOTTLE TP SCH ×2 (09:28→20:56)
[2021-04-15] MEDS: Budesonide/Formoterol 160/4.5 1 PUFF INH IH SCH ×2 (10:45→21:43)
[2021-04-15] MEDS: *HR* OxyCODONE Immed Rel 5 MG TABLET PO PRN (11:31)
[2021-04-15] MEDS: Ondansetron 4 MG/2 ML VIAL IVP PRN (11:32)
[2021-04-15] MEDS: Insulin DETEMIR 100 UNIT/ML X5UNITS SUBQ SCH (21:01)
[2021-04-16 02:09] LABS: Hematocrit 31.2 % (35.3-44.9); Hemoglobin 9.4 g/dL (11.5-15.4); Mean Corpuscular HGB Conc 30.1 g/dL (31.6-35.5); Mean Corpuscular Hemoglobin 30.2 pg (28.0-33.3); Mean Corpuscular Volume 100.3 fL (83.0-100.0); Mean Platelet Volume 9.2 fL (9.4-12.4); Platelet Count 165 K/mcL (140-400); Red Blood Count 3.11 M/mcL (3.82-4.97); Red Cell Distribution Width 16.3 % (11.5-14.5); White Blood Count 4.8 K/mcL (4.3-11.1)
[2021-04-16 02:32] LABS: Calcium 10.6 mg/dL (8.6-10.3); Magnesium 1.9 mg/dL (1.6-2.6); Phosphorous 2.7 mg/dL (2.7-4.5); Potassium 4.6 mEq/L (3.5-5.1)
[2021-04-16] MEDS: Ipratropium/Albuterol Neb 3 ML IH SCH ×4 (03:41→22:22)
[2021-04-16] MEDS: Chlorhexidine Rinse 15 ML MOUTHWASH MM SCH ×2 (08:59→22:50)
[2021-04-16] MEDS: Furosemide 20 MG TABLET PO SCH (09:00)
[2021-04-16] MEDS: Sennosides/Docusate Sodium TABLET PO SCH ×2 (09:00→22:49)
[2021-04-16] MEDS: Nystatin POWDER 30 GM BOTTLE TP SCH ×2 (09:00→22:51)
[2021-04-16] MEDS: Insulin LISPRO 300 UNITS/3 ML VIAL SUBQ SCH ×4 (09:00→22:50)
[2021-04-16] MEDS: FLUoxetine 20 MG CAPSULE PO SCH (09:00)
[2021-04-16] MEDS: Renal Vitamin 1 CAP CAPSULE PO SCH (09:00)
[2021-04-16] MEDS: polyethylene glycoL 3350 17 GM POWD.PACK PO SCH (09:00)
[2021-04-16] MEDS: Budesonide/Formoterol 160/4.5 1 PUFF INH IH SCH ×2 (10:01→22:22)
[2021-04-16] MEDS ORDERED: *HR* Dextrose 50 % in Water (Syg) 50 ML SYRINGE IVP PRN (14:45)
[2021-04-16] MEDS: Insulin DETEMIR 100 UNIT/ML X5UNITS SUBQ SCH (22:50)
[2021-04-16] MEDS: Lactulose Oral Soln 20 GM/30 ML UDC PO SCH (22:50)
[2021-04-17 01:47] LABS: Hematocrit 30.4 % (35.3-44.9); Hemoglobin 9.2 g/dL (11.5-15.4); Mean Corpuscular HGB Conc 30.3 g/dL (31.6-35.5); Mean Platelet Volume 9.1 fL (9.4-12.4); Platelet Count 179 K/mcL (140-400); Red Blood Count 3.07 M/mcL (3.82-4.97); Red Cell Distribution Width 16.3 % (11.5-14.5)
[2021-04-17 02:14] LABS: Calcium 11.3 mg/dL (8.6-10.3); Potassium 4.6 mEq/L (3.5-5.1)
[2021-04-17] MEDS: Ipratropium/Albuterol Neb 3 ML IH SCH ×4 (03:25→21:53)
[2021-04-17] MEDS: FLUoxetine 20 MG CAPSULE PO SCH (09:55)
[2021-04-17] MEDS: Lactulose Oral Soln 20 GM/30 ML UDC PO SCH ×3 (09:55→20:54)
[2021-04-17] MEDS: Sennosides/Docusate Sodium TABLET PO SCH ×2 (09:56→20:47)
[2021-04-17] MEDS: Chlorhexidine Rinse 15 ML MOUTHWASH MM SCH ×2 (09:56→20:47)
[2021-04-17] MEDS: Renal Vitamin 1 CAP CAPSULE PO SCH (09:56)
[2021-04-17] MEDS: Furosemide 20 MG TABLET PO SCH (09:56)
[2021-04-17] MEDS: Nystatin POWDER 30 GM BOTTLE TP SCH ×2 (09:57→20:48)
[2021-04-17] MEDS: polyethylene glycoL 3350 17 GM POWD.PACK PO SCH (10:02)
[2021-04-17] MEDS: Insulin LISPRO 300 UNITS/3 ML VIAL SUBQ SCH ×4 (10:02→20:36)
[2021-04-17] MEDS: Budesonide/Formoterol 160/4.5 1 PUFF INH IH SCH ×2 (10:23→21:53)
[2021-04-17] MEDS ORDERED: Furosemide 20 MG TABLET PO ONE (10:41)
[2021-04-17] MEDS: Insulin DETEMIR 100 UNIT/ML X5UNITS SUBQ SCH (20:47)
[2021-04-18] MEDS: Ipratropium/Albuterol Neb 3 ML IH SCH ×4 (03:22→21:40)
[2021-04-18 07:16] LABS: Basophils % 0.5 %; Eosinophils # 0.1 K/mcL (0.0-0.6); Eosinophils % 2.1 %; Hematocrit 30.9 % (35.3-44.9); Hemoglobin 9.4 g/dL (11.5-15.4); Immature Granulocytes % 2.1 % (0-4); Lymphocytes # 0.8 K/mcL (0.6-4.6); Lymphocytes % 13.1 %; Mean Corpuscular HGB Conc 30.4 g/dL (31.6-35.5); Mean Corpuscular Hemoglobin 29.7 pg (28.0-33.3); Mean Corpuscular Volume 97.8 fL (83.0-100.0); Mean Platelet Volume 8.8 fL (9.4-12.4); Monocytes # 0.5 K/mcL (0.0-1.3); Monocytes % 7.7 %; Neutrophils # 4.5 K/mcL (1.6-8.9); Platelet Count 187 K/mcL (140-400); Red Blood Count 3.16 M/mcL (3.82-4.97); Red Cell Distribution Width 16.8 % (11.5-14.5); Segmented Neutrophils % 74.5 %; White Blood Count 6.1 K/mcL (4.3-11.1)
[2021-04-18 07:35] LABS: Calcium 11.5 mg/dL (8.6-10.3); Potassium 4.7 mEq/L (3.5-5.1)
[2021-04-18] MEDS: Lactulose Oral Soln 20 GM/30 ML UDC PO SCH ×2 (08:54→20:04)
[2021-04-18] MEDS: Furosemide 40 MG TABLET PO SCH (08:54)
[2021-04-18] MEDS: Sennosides/Docusate Sodium TABLET PO SCH ×2 (08:54→20:03)
[2021-04-18] MEDS: polyethylene glycoL 3350 17 GM POWD.PACK PO SCH (08:54)
[2021-04-18] MEDS: FLUoxetine 20 MG CAPSULE PO SCH (08:54)
[2021-04-18] MEDS: Renal Vitamin 1 CAP CAPSULE PO SCH (08:54)
[2021-04-18] MEDS: Chlorhexidine Rinse 15 ML MOUTHWASH MM SCH ×2 (08:54→20:04)
[2021-04-18] MEDS: Nystatin POWDER 30 GM BOTTLE TP SCH ×2 (08:55→20:30)
[2021-04-18] MEDS: Insulin LISPRO 300 UNITS/3 ML VIAL SUBQ SCH ×4 (08:55→20:26)
[2021-04-18] MEDS: Budesonide/Formoterol 160/4.5 1 PUFF INH IH SCH ×2 (10:41→21:40)
[2021-04-18] MEDS: Insulin DETEMIR 100 UNIT/ML X5UNITS SUBQ SCH (20:29)
[2021-04-19] MEDS: Ipratropium/Albuterol Neb 3 ML IH SCH ×5 (03:35→21:15)
[2021-04-19 05:45] LABS: Basophils % 0.5 %; Eosinophils # 0.1 K/mcL (0.0-0.6); Eosinophils % 1.9 %; Hematocrit 30.2 % (35.3-44.9); Hemoglobin 9.3 g/dL (11.5-15.4); Immature Granulocytes % 1.3 % (0-4); Lymphocytes % 12.8 %; Mean Corpuscular HGB Conc 30.8 g/dL (31.6-35.5); Mean Corpuscular Hemoglobin 30.4 pg (28.0-33.3); Mean Corpuscular Volume 98.7 fL (83.0-100.0); Mean Platelet Volume 9.4 fL (9.4-12.4); Monocytes # 0.6 K/mcL (0.0-1.3); Monocytes % 8.2 %; Neutrophils # 5.6 K/mcL (1.6-8.9); Platelet Count 194 K/mcL (140-400); Red Blood Count 3.06 M/mcL (3.82-4.97); Red Cell Distribution Width 16.6 % (11.5-14.5); Segmented Neutrophils % 75.3 %; White Blood Count 7.4 K/mcL (4.3-11.1)
[2021-04-19 06:04] LABS: Calcium 11.7 mg/dL (8.6-10.3); Potassium 4.6 mEq/L (3.5-5.1)
[2021-04-19] MEDS: Lactulose Oral Soln 20 GM/30 ML UDC PO SCH ×3 (09:27→19:35)
[2021-04-19] MEDS: Chlorhexidine Rinse 15 ML MOUTHWASH MM SCH ×3 (09:27→19:34)
[2021-04-19] MEDS: polyethylene glycoL 3350 17 GM POWD.PACK PO SCH (09:28)
[2021-04-19] MEDS: Sennosides/Docusate Sodium TABLET PO SCH ×2 (09:28→19:32)
[2021-04-19] MEDS: Furosemide 40 MG TABLET PO SCH (09:28)
[2021-04-19] MEDS: Insulin LISPRO 300 UNITS/3 ML VIAL SUBQ SCH ×4 (09:28→20:01)
[2021-04-19] MEDS: Renal Vitamin 1 CAP CAPSULE PO SCH (09:28)
[2021-04-19] MEDS: FLUoxetine 20 MG CAPSULE PO SCH (09:28)
[2021-04-19] MEDS: Nystatin POWDER 30 GM BOTTLE TP SCH ×2 (09:28→19:36)
[2021-04-19] MEDS ORDERED: *HR* Metoprolol 5 MG/5 ML VIAL IVP ONE (09:32)
[2021-04-19] MEDS: *HR* OxyCODONE Immed Rel 5 MG TABLET PO PRN (11:12)
[2021-04-19] MEDS ORDERED: Pantoprazole 40 MG VIAL IVP ONE (11:18)
[2021-04-19] MEDS: Ondansetron 4 MG/2 ML VIAL IVP PRN (11:28)
[2021-04-19] MEDS: Budesonide/Formoterol 160/4.5 1 PUFF INH IH SCH ×3 (11:34→21:15)
[2021-04-19] MEDS: Insulin DETEMIR 100 UNIT/ML X5UNITS SUBQ SCH (20:01)
[2021-04-20] MEDS: Ipratropium/Albuterol Neb 3 ML IH SCH ×4 (03:46→21:08)
[2021-04-20 08:03] LABS: Basophils % 0.5 %; Eosinophils # 0.1 K/mcL (0.0-0.6); Hematocrit 31.7 % (35.3-44.9); Hemoglobin 9.5 g/dL (11.5-15.4); Immature Granulocytes % 1.8 % (0-4); Lymphocytes # 0.8 K/mcL (0.6-4.6); Lymphocytes % 12.3 %; Mean Corpuscular Hemoglobin 30.6 pg (28.0-33.3); Mean Corpuscular Volume 102.3 fL (83.0-100.0); Mean Platelet Volume 9.8 fL (9.4-12.4); Monocytes # 0.5 K/mcL (0.0-1.3); Monocytes % 7.7 %; Platelet Count 192 K/mcL (140-400); Red Cell Distribution Width 16.7 % (11.5-14.5); Segmented Neutrophils % 75.7 %; White Blood Count 6.6 K/mcL (4.3-11.1)
[2021-04-20] MEDS: Lactulose Oral Soln 20 GM/30 ML UDC PO SCH ×2 (08:16→20:56)
[2021-04-20] MEDS: Chlorhexidine Rinse 15 ML MOUTHWASH MM SCH ×2 (08:16→20:50)
[2021-04-20] MEDS: Insulin LISPRO 300 UNITS/3 ML VIAL SUBQ SCH ×4 (08:17→20:51)
[2021-04-20] MEDS: polyethylene glycoL 3350 17 GM POWD.PACK PO SCH (08:17)
[2021-04-20] MEDS: Renal Vitamin 1 CAP CAPSULE PO SCH (08:17)
[2021-04-20] MEDS: Furosemide 40 MG TABLET PO SCH (08:17)
[2021-04-20] MEDS: Sennosides/Docusate Sodium TABLET PO SCH ×2 (08:17→20:50)
[2021-04-20] MEDS: FLUoxetine 20 MG CAPSULE PO SCH (08:17)
[2021-04-20 08:18] LABS: Potassium 5.1 mEq/L (3.5-5.1)
[2021-04-20] MEDS: Nystatin POWDER 30 GM BOTTLE TP SCH ×2 (08:18→20:52)
[2021-04-20] MEDS: Budesonide/Formoterol 160/4.5 1 PUFF INH IH SCH ×2 (11:06→21:07)
[2021-04-20] MEDS: Insulin DETEMIR 100 UNIT/ML X5UNITS SUBQ SCH (20:52)
[2021-04-21 01:56] LABS: Calcium 10.6 mg/dL (8.6-10.3); Potassium 5.2 mEq/L (3.5-5.1)
[2021-04-21] MEDS: Ipratropium/Albuterol Neb 3 ML IH SCH ×2 (03:56→10:27)
[2021-04-21] MEDS: Sennosides/Docusate Sodium TABLET PO SCH (09:41)
[2021-04-21] MEDS: FLUoxetine 20 MG CAPSULE PO SCH (09:42)
[2021-04-21] MEDS: Lactulose Oral Soln 20 GM/30 ML UDC PO SCH (09:44)
[2021-04-21] MEDS: Renal Vitamin 1 CAP CAPSULE PO SCH (09:44)
[2021-04-21] MEDS: Chlorhexidine Rinse 15 ML MOUTHWASH MM SCH (09:44)
[2021-04-21] MEDS: polyethylene glycoL 3350 17 GM POWD.PACK PO SCH (09:44)
[2021-04-21] MEDS: Insulin LISPRO 300 UNITS/3 ML VIAL SUBQ SCH ×2 (09:55→12:24)
[2021-04-21] MEDS: Nystatin POWDER 30 GM BOTTLE TP SCH (09:55)
[2021-04-21] MEDS: Budesonide/Formoterol 160/4.5 1 PUFF INH IH SCH (10:27)
[2021-04-21] MEDS: Furosemide 40 MG TABLET PO SCH (11:11)
[2021-04-21 11:51] LABS: Adenovirus Not Detected (Not Detect); Bordetella Pertussis Not Detected (Not Detect); Chlamydophila pneumoniae Not Detected (Not Detect); Coronavirus 229E Not Detected (Not Detect); Coronavirus HKU1 Not Detected (Not Detect); Coronavirus NL63 Not Detected (Not Detect); Coronavirus OC43 Not Detected (Not Detect); Human Metapneumovirus Not Detected (Not Detect); Human Rhinovirus/Enterovirus Not Detected (Not Detect); Influenza A Subtype 2009 H1 Not Detected (Not Detect); Influenza B Not Detected (Not Detect); Mycoplasma pneumoniae Not Detected (Not Detect); Parainfluenza Virus 1 Not Detected (Not Detect); Parainfluenza Virus 2 Not Detected (Not Detect); Parainfluenza Virus 3 Not Detected (Not Detect); Parainfluenza Virus 4 Not Detected (Not Detect); Respiratory Syncytial Virus Not Detected (Not Detect); SARS-CoV-2 Not Detected (Not Detect)
[2021-04-21 16:48] VITALS: BP 123/75; PULSE 89; TEMP 98.1; O2SAT 95
== END 2021-04-21 17:28 | DRG 981 ==
LOC: EMEROOARM 15:25 → 2ANU 15:25 → SUATTDRO 16:59 → 2ANU 18:20 → SUATTDRO 03-28 14:55 → ICNU 04-06 14:28 → 2ANU 04-09 12:59
PROVIDERS: ADMIT Pharmacist; ATTEND Family Medicine